=== PATIENT | male | born 1960 | race Caucasian/White ===

== ENCOUNTER 2025-01-26 07:38 | Inpatient (IN) | payer BC, SELFPAY ==
[2025-01-26] VITALS (17 sets, daily range): BP systolic 141–170; BP diastolic 79–110; PULSE 70–97; RESP 17–20; TEMP 36.5–36.9; O2SAT 91–97; BMI 38.4
--- NOTE | 2025-01-26 07:44 | EKG12_ITS ---
Test Reason : SOB Blood Pressure : */* mmHG Vent. Rate : 80 BPM Atrial Rate : 80 BPM P-R Int : 146 ms QRS Dur : 82 ms QT Int : 424 ms P-R-T Axes : 58 6 34 degrees QTcB Int : 489 ms Normal sinus rhythm Septal infarct , age undetermined Abnormal ECG Confirmed by SANDRA GARCIA, LEIGHA ([id number]), legal editor MAURICE SAUNDERS ([id number]) on 01/27/2025 1:24:50 PM Referred By: Confirmed By: LEIGHA FLORES MD
--- NOTE | 2025-01-26 08:00 | ED.VIS.DYS ---
HPI History of Present Illness Chief Complaint: Shortness of Breath Narrative Narrative: Chief complaint and HPI: Cough with known pneumonia. 64-year-old male with no significant past medical history presents for evaluation of cough with recent diagnosis of pneumonia. Patient states since he has had a productive cough and URI type symptoms. States that he was seen in urgent care and diagnosed with pneumonia. Prescribed antibiotics but does not remember which ones. States his cough has worsened overnight. Endorses some mild shortness of breath. Denies any fever, chills, chest pain, abdominal pain, nausea, vomiting. Denies history of tobacco abuse. Review of systems: See HPI Medications: As listed on the chart Allergies: As listed on the chart PFSH: Per chart Vital signs: As listed on the chart. Reviewed. Physical exam: Gen: A&O x3, NAD Head: Normocephalic, atraumatic Eyes: No sclera icterus, conjunctiva clear ENT: Moist mucous membranes Neck: Trachea midline, No JVD CV: RRR, no murmurs, no peripheral edema Resp: Lungs CTA BL, no w/r/c, 2 L nasal cannula GI: Abd soft, non-distended, non-tender, no r/r/g Musc: Full ROM, no deformity Skin: Warm, dry Neuro: Alert, oriented, grossly intact, sensation intact Psych: Cooperative, appropriate mood and affect [facility] Medical History unable to obtain Home Medications ?Medication ?Instructions ?Recorded ?Last Taken ?Type albuterol sulfate 90 mcg/actuation 2 puff inhalation Q4H PRN wheezing 01/26/25 01/25/25 History aerosol inhaler Allergy/AdvReac Type Severity Reaction Status Date / Time No Known Allergies Allergy Verified 01/26/25 07:43 Surgical History (Updated 01/26/25 @ 07:44 by Kelin Mart) S/P middle ear reconstruction Social History Smoking Status: Current every day smoker tobacco type: smokeless tobacco EXAM Physical Exam Const Vital Signs: 01/26/25 07:39 01/26/25 07:42 01/26/25 07:44 Temperature 98.4 F 98.4 F Temperature Source Oral Oral Pulse Rate 83 79 Respiratory Rate 20 H 20 H Respiratory Effort Respiratory Depth Respiratory Pattern Blood Pressure 168/87 H 168/87 H Blood Pressure Mean 114 114 Pulse Ox 96 97 Oxygen Delivery Method Nasal Cannula Nasal Cannula Nasal Cannula Oxygen Flow Rate (L/min) 2 2 01/26/25 07:46 01/26/25 08:11 01/26/25 08:11 Temperature Temperature Source Pulse Rate 79 Respiratory Rate 18 Respiratory Effort Normal Respiratory Depth Normal Respiratory Pattern Normal Normal Blood Pressure Blood Pressure Mean Pulse Ox 96 Oxygen Delivery Method Nasal Cannula Nasal Cannula Oxygen Flow Rate (L/min) 2 2 01/26/25 08:30 01/26/25 08:30 01/26/25 09:00 Temperature 98.4 F 98.4 F Temperature Source Oral Oral Pulse Rate 85 80 80 Respiratory Rate 20 H 20 H 20 H Respiratory Effort Respiratory Depth Respiratory Pattern Blood Pressure 156/110 H 156/110 H 159/82 H Blood Pressure Mean 125 125 107 Pulse Ox 97 97 97 Oxygen Delivery Method Nasal Cannula Nasal Cannula Nasal Cannula Oxygen Flow Rate (L/min) 2 2 2 01/26/25 10:00 01/26/25 10:00 Temperature 98.2 F Temperature Source Oral Pulse Rate 82 80 Respiratory Rate 18 20 H Respiratory Effort Respiratory Depth Respiratory Pattern Blood Pressure 170/98 H 170/90 H Blood Pressure Mean 122 116 Pulse Ox 97 97 Oxygen Delivery Method Nasal Cannula Nasal Cannula Oxygen Flow Rate (L/min) 2 2 MDM MDM MDM Narrative Medical decision making narrative: 64-year-old male with no significant past medical history presents for evaluation of cough with recent diagnosis of pneumonia. On presentation, patient is hypertensive, mildly tachypneic, and hypoxic at 69% on room air. Requiring 2 L nasal cannula. Patient usually does not wear oxygen. Differential diagnosis includes but is not limited to pneumonia, viral illness, PE, ACS, CHF. DuoNebs ordered with 500 cc NS bolus. Laboratory workup ordered with chest x-ray. On chart review, I was unable to find patient's x-ray that he had performed at an urgent care. On chart review, patient was prescribed Augmentin and azithromycin x 5 days on 01/17. Was also given a prednisone taper. CBC with leukocytosis of 14. No anemia. Platelets unremarkable. BMP unremarkable. Chest x-ray shows pneumonia, Rocephin and azithromycin ordered for suspected community-acquired pneumonia. Dimer elevated at 0.78. This is likely secondary to his pneumonia however cannot rule out a PE with his hypoxia. CTA ordered. COVID, flu, RSV negative. BNP unremarkable. Troponin unremarkable. CTA negative for PE. Patient has pneumonia. Small nodules up to 5.5 mm follow-up outpatient. Mild mediastinal lymphadenopathy, nonspecific. Mild splenomegaly. Patient will warrant admission for acute hypoxia secondary to pneumonia. Patient originally stating that he wants to leave AGAINST MEDICAL ADVICE however after long discussion he is willing to stay to be treated and admitted. Patient was discussed with hospitalist service who accepted admission. EKG: Interpreted by me/EM physician: EKG shows normal sinus rhythm without any ST elevation. Heart rate 80. Diagnostic: Interpreted by me/EM physician: Chest x-ray shows right-sided pneumonia. No effusion or pneumothorax. Impression: 1. Acute hypoxia 2. Pneumonia Lab Data Labs: Laboratory Results - last 24 hr 01/26/25 07:58 WBC 14.0 H RBC 4.53 L Hgb 14.0 Hct 40.8 MCV 90.1 MCH 30.9 MCHC 34.3 RDW Std Deviation 45.5 H RDW Coeff of Mana 13.8 Plt Count 288 MPV 9.1 Immature Gran % (Auto) 0.900 Neut % (Auto) 78.8 H Lymph % (Auto) 12.7 L [place] % (Auto) 6.4 Eos % (Auto) 0.7 Baso % (Auto) 0.5 Absolute Neuts (auto) 11.0 H Absolute Lymphs (auto) 1.77 Nucleated RBC % 0 D-Dimer Quant (PE/DVT) 0.78 H* Sodium 140 Potassium 3.4 Chloride 99 Carbon Dioxide 29.2 Anion Gap 12 BUN 14 Creatinine 0.81 Estim Creat Clear Calc 123.61 Est GFR (MDRD) Non-Af 100 BUN/Creatinine Ratio 17.6 Glucose 111 H Lactic Acid 1.4 Calcium 8.3 Troponin T High Sens 22 NT pro BNP II < 36 Radiography Diagnostic Testing: Clinical Impression(s) from Imaging Studies Chest X-Ray 01/26/25 08:40 IMPRESSION: 1. Findings in the RIGHT lung base are consistent with pneumonia, superimposed on chronic findings in the region which are similar to 11/12/2012. Follow-up to radiographic resolution recommended. 2. Additional description as above. Reading Location: [facility] Chest CTA 01/26/25 09:20 IMPRESSION: 1. No central or definite pulmonary embolism identified allowing for above limitations. 2. Findings are compatible with an infectious/inflammatory process such as mild pneumonia. Given scattered foci of lower lobe endobronchial debris/mucous plugging, consider mild aspiration. 3. Small nodules up to 5.5 mm average axial diameter, statistically benign and requiring no specific follow-up in a low risk patient. Otherwise, recommend follow-up CT chest in one year per the Fleischner society recommendations for pulmonary nodule follow-up, presuming no history of malignancy or known immunosuppression. 4. Mild mediastinal lymphadenopathy, nonspecific and potentially reactive in the absence of known malignancy. Correlate with medical history and follow-up as indicated. 5. Mild splenomegaly. 6. Additional description as above. Reading Location: [facility] Discharge Plan Triage Chief Complaint: Shortness of Breath ED Provider: Yao Cheng Dx/Rx/DC Orders Prescriptions: No Action albuterol sulfate 90 mcg/actuation HFA aerosol inhaler 2 puff inhalation Q4H PRN (Reason: wheezing) Primary Care Provider: Care Physician,No Primary Referrals: Ryne Subramanian MD [Non-Staff] - Print Language: Niuean
[2025-01-26] MEDS: Ipratropium/Albuterol Sulfate 3 ML AMPUL.NEB 9 ML INHALATION (08:09)
[2025-01-26] MEDS: 0.9% Normal Saline (500mL Bag) 500 ML 999 ML IV (08:14)
[2025-01-26 08:15] LABS: Absolute Lymphocyte Count 1.77 X10^3/uL (0.83-4.51); Basophil# 0.07 X10^3/uL; Basophil% 0.5 % (0-1); Eosinophils% 0.7 % (0-5); Hematocrit 40.8 % (40-54); Lymphocyte # 1.77 X10^3/ul (0.83-4.51); Lymphocyte % 12.7 % (19-41); Mean Corp Hgb Conc 34.3 g/dL (32-36); Mean Corpuscular Hgb 30.9 pg (27.0-32.0); Mean Corpuscular Volume 90.1 fL (80-94); Mean Platelet Vol. 9.1 fl (6.2-12.0); Monocyte# 0.89 X10^3/uL; Monocyte% 6.4 % (0-10); NRBC Flagged by Analyzer 0 % (0-5); Neutrophil # 11.02 X10^3/uL (2.7-7.7); Neutrophil % 78.8 % (47-70); Platelet Count 288 K/mm3 (150-450); RBC Distribution Width CV 13.8 % (11.6-14.6); RBC Distribution Width SD 45.5 fl (35.1-43.9); Red Blood Count 4.53 M/mm3 (4.6-6.2)
--- NOTE | 2025-01-26 08:40 | RAD_ITS ---
PROCEDURE: CHEST PA AND LATERAL (RADCXR), 01/26/2025 REASON FOR EXAM: SHORTNESS OF BREATH TECHNIQUE: PA and lateral views of the chest were obtained. COMPARISON: 11/12/2012 ; note that images only are available for review, the report is not available at the time of the dictation. FINDINGS: Heart: Similar top-normal heart size. Mediastinum: Similar contours, including widening of the RIGHT paratracheal stripe. Lungs/pleura: Similar ill-defined opacities in the RIGHT lung base and suspected architectural distortion with suspected pleural thickening versus chronic small pleural effusion. Superimposed vague opacities slightly more cranially are probably new from prior. No LEFT pleural effusion or visible pneumothorax. Bones: Old LEFT rib fractures are new from prior. Multilevel spondylosis. Findings suggestive of rotator cuff pathology on the LEFT. Lines and support devices: None. Other: None. RAD/Chest PA and Lateral IMPRESSION: 1. Findings in the RIGHT lung base are consistent with pneumonia, superimposed on chronic findings in the region which are similar to 11/12/2012. Follow-up to radiographic resolution recommended. 2. Additional description as above. Reading Location: [id number]
[2025-01-26 08:57] LABS: Lactic Acid 1.4 mmol/L (0.0-2.0)
[2025-01-26 09:02] LABS: Anion Gap 12 (5-15); BUN 14 mg/dL (4-19); BUN/Creat Ratio 17.6 RATIO (10-20); Calcium,Total 8.3 mg/dL (7.6-11.0); Carbon Dioxide 29.2 mmol/L (21.0-32.0); Chloride 99 mmol/L (98-108); Creatinine, Serum 0.81 mg/dL (0.70-1.20); EST Glomerular Filtration Rate 100 (>60); Estimated Creatinine Clearance 123.61 ml/min (50-250); Glucose 111 mg/dL (70-99); Potassium 3.4 mmol/L (3.3-5.1); Sodium Level 140 mmol/L (133-145)
[2025-01-26 09:05] LABS: Pro- Brain NATRIURETIC PEPTIDE < 36 pg/mL (<=900); Troponin T High Sensitivity 22 ng/L (<=22)
[2025-01-26 09:11] LABS: D-Dimer Quantitative (DVT/PE) 0.78 FEU/ug/m (0.27-0.49)
--- NOTE | 2025-01-26 09:20 | CT_ITS ---
PROCEDURE: CTA CHEST W/WO CONTRAST (CTCTACHWW), 01/26/2025 REASON FOR EXAM: PE, ELEVATED DIMER, SOB TECHNIQUE: CTA chest was performed with IV contrast. Multiplanar reformats and MIP reconstructions were generated. CONTRAST: Isovue 370 VOLUME: 100mL RADIATION DOSE SUMMARY: CTDlvol: 7.12+ 15.83 mGy DLP: 565.48 mGycm One or more dose reduction techniques were used (e.g., Automated exposure control, adjustment of the mA and/or kV according to patient size, use of iterative reconstruction technique). COMPARISON: No prior CT or CTA chest. FINDINGS: Sensitivity for peripheral pulmonary embolus limited by suboptimal opacification of the pulmonary arterial tree to 173 Hounsfield units, as compared with 202 Hounsfield units in the pulmonary veins. Sensitivity further limited by moderate motion artifact. Heart/pericardium: Unremarkable. Aorta: Focal fusiform ectasia of the distal descending aorta to 3.6 x 3.3 cm with mild irregular mural thrombus and/or soft atherosclerotic plaque along the medial margin. Pulmonary arteries: Normal in caliber. No central or definite pulmonary embolism is identified. Lymph nodes: Subcarinal node, 12 mm short axis.. Lungs/pleura: Elevated RIGHT hemidiaphragm. Mild bibasilar likely atelectasis/scarring. Scattered ill-defined vaguely tree-in-bud micronodular opacities throughout the RIGHT middle and lower lobes the RIGHT upper and LEFT lower lobes to a lesser degree. Discrete nodules up to 7 x 4 mm in the LEFT lower lobe (series 2, image 124). Airways: Scattered foci of mucous plugging/endobronchial debris most notable in the lower lobes.. Chest wall: Unremarkable. Upper abdomen: Mild splenomegaly, 13.5 cm. Musculoskeletal: Multilevel spondylosis. Old bilateral rib fractures. CT/CTA Chest W/WO Contrast IMPRESSION: 1. No central or definite pulmonary embolism identified allowing for above limi tations. 2. Findings are compatible with an infectious/inflammatory process such as mild pneumonia. Given scattered foci of lower lobe endobronchial debris/mucous plugging, consider mild aspiration. 3. Small nodules up to 5.5 mm average axial diameter, statistically benign and requiring no specific follow-up in a low risk patient. Otherwise, recommend follow-up CT chest in one year per the Fleischne r society recommendations for pulmonary nodule follow-up, presuming no history of malignancy or known immunosuppression. 4. Mild mediastinal lymphadenopathy, nonspecific and potentially reactive in th e absence of known malignancy. Correlate with medical history and follow-up as indicated. 5. Mild splenomegaly. 6. Additional description as above. Reading Location: [id number]
[2025-01-26] MEDS: Ceftriaxone 2 GM in 0.9% Normal Saline (50mL MB+) 50 ML IV (09:50)
[2025-01-26] MEDS: Azithromycin 500 MG in 0.9% Normal Saline (250mL Bag) 250 ML 255 MG IV (10:43)
--- NOTE | 2025-01-26 10:52 | PCM.HP.STD ---
HPI - General General Date of Admission: 01/26/25 Date of Service: 01/26/25 Chief Complaint: shortness of breath HPI Narrative JUAN FRANCISCO STRANGE, is a 64 M with a PMH as outlined who was admitted via the ED on 01/26/2025 with a complaint of shortness of breath. Symptoms have been going on since he had seen his PCP and was prescribed Augmentin and doxycycline. He took these medications but his shortness of breath and cough persisted. Cough was productive. His cough had worsening shortness of breath and not improved. He denied any fever or chills, chest pain, nausea vomiting or any other symptoms. Review of systems otherwise negative. He decided to come into the ED because symptoms were not improving. Vitals in [facility] ED were BP of 170/90, VA of 80, RR Of 20 and temp of 98.2F. He was saturating at 97% on 2L of oxygen by nasal canula. CBC showed Hb of 14, wbc of 14, platelets of 288. D dimer was 0.78. Chemistry showed sodium of 140, potassium of 3.4, bicarb of 29.2 and Cr of 0.81. Pro BNP was <36 and initial troponin was not elevated. Lactic acid was 1.4. Chest x-ray showed findings in the right lung base consistent with pneumonia. CTA of the chest was negative for PE and showed findings compatible with an infectious versus inflammatory process given scattered foci of lower lobe endobronchial debris and mucous plugging with consideration for aspiration. He is being admitted to be managed for hypoxia due to community acquired pneumonia with failed outpatient therapy. [facility] Medical History unable to obtain Home Medications ?Medication ?Instructions ?Recorded ?Last Taken ?Type albuterol sulfate 90 mcg/actuation 2 puff inhalation Q4H PRN wheezing 01/26/25 01/25/25 History aerosol inhaler Allergy/AdvReac Type Severity Reaction Status Date / Time No Known Allergies Allergy Verified 01/26/25 07:43 Family History (Updated 01/26/25 @ 12:14 by Alethea Holliday) Father CHF (congestive heart failure) COPD (chronic obstructive pulmonary disease) Mother Parkinson disease CVA (cerebral vascular accident) Sister COPD (chronic obstructive pulmonary disease) Surgical History (Updated 01/26/25 @ 07:44 by Kelin Mart) S/P middle ear reconstruction Social History Smoking Status: Current every day smoker tobacco type: smokeless tobacco ROS Constitutional Constitutional: Reports fatigue, malaise and weakness; Denies anorexia, change in weight, chills or fever(s) Eyes Eyes: Denies change in vision ENT HEENT: Denies dysphagia, headache(s) or sore throat Cardiovascular Cardiovascular: Reports dyspnea on exertion; Denies chest pain, edema, lightheadedness, orthopnea, palpitations, paroxysmal nocturnal dyspnea, rapid heart rate or syncope Respiratory/Chest Respiratory/Chest: Reports cough, dyspnea, productive cough, shortness of breath at rest and shortness of breath with exertion; Denies excessive phlegm production, hemoptysis or wheezing Gastrointestinal Gastrointestinal: Denies abdominal pain, constipation, diarrhea, dyspepsia, nausea or vomiting Genitourinary Genitourinary: Denies burning urination or dysuria Neurologic Neurologic: Denies confusion, dizziness, focal weakness, headache(s), numbness or seizures Psychiatric Psychiatric: Denies anxiety or depression Endocrine Endocrinology: Denies cold intolerance Hematologic/Lymphatic Hematologic/Lymphatic: Denies anemia Vital Signs Vital Signs Vital Signs: 01/26/25 07:39 01/26/25 07:42 01/26/25 07:44 Temperature 98.4 F 98.4 F Temperature Source Oral Oral Pulse Rate 83 79 Respiratory Rate 20 H 20 H Respiratory Effort Respiratory Depth Respiratory Pattern Blood Pressure 168/87 H 168/87 H Blood Pressure Mean 114 114 Pulse Ox 96 97 Oxygen Delivery Method Nasal Cannula Nasal Cannula Nasal Cannula Oxygen Flow Rate (L/min) 2 2 01/26/25 07:46 01/26/25 08:11 01/26/25 08:11 Temperature Temperature Source Pulse Rate 79 Respiratory Rate 18 Respiratory Effort Normal Respiratory Depth Normal Respiratory Pattern Normal Normal Blood Pressure Blood Pressure Mean Pulse Ox 96 Oxygen Delivery Method Nasal Cannula Nasal Cannula Oxygen Flow Rate (L/min) 2 2 01/26/25 08:30 01/26/25 08:30 01/26/25 09:00 Temperature 98.4 F 98.4 F Temperature Source Oral Oral Pulse Rate 85 80 80 Respiratory Rate 20 H 20 H 20 H Respiratory Effort Respiratory Depth Respiratory Pattern Blood Pressure 156/110 H 156/110 H 159/82 H Blood Pressure Mean 125 125 107 Pulse Ox 97 97 97 Oxygen Delivery Method Nasal Cannula Nasal Cannula Nasal Cannula Oxygen Flow Rate (L/min) 2 2 2 01/26/25 10:00 01/26/25 10:00 Temperature 98.2 F Temperature Source Oral Pulse Rate 82 80 Respiratory Rate 18 20 H Respiratory Effort Respiratory Depth Respiratory Pattern Blood Pressure 170/98 H 170/90 H Blood Pressure Mean 122 116 Pulse Ox 97 97 Oxygen Delivery Method Nasal Cannula Nasal Cannula Oxygen Flow Rate (L/min) 2 2 Weight Weight: 268 lb Body Mass Index (BMI) 38.4 Physical Exam Const alert, oriented x3 and no apparent distress Constitutional Narrative: class III obesity General Appearance: cooperative HEENT normocephalic, head/scalp atraumatic, hearing grossly normal bilaterally and moist oral mucous membranes Mouth: oral and palatal mucosa normal Eyes PERRL, EOMs intact bilaterally and conjunctivae normal Resp Resp Narrative: mildly diminished breath sounds bibasally, no wheezes or crackles. On room air. Cardio regular rate, regular rhythm, S1 normal heart sound, S2 normal heart sound and no murmurs GI normal to inspection, nondistended, normoactive bowel sounds, soft to palpation, non-tender and non-distended Extremity normal to inspection, full ROM and no clubbing, cyanosis or edema Neuro oriented x3, CN's II-XII intact bilaterally, moves all extremities and no focal motor deficits Motor Exam: strength 5/5 throughout Psych affect normal Results Lab / Micro Data 01/26/25 07:58 01/26/25 07:58 Labs: Laboratory Results - last 24 hr 01/26/25 07:58: WBC 14.0 H, RBC 4.53 L, Hgb 14.0, Hct 40.8, MCV 90.1, MCH 30.9, MCHC 34.3, RDW Std Deviation 45.5 H, RDW Coeff of Mana 13.8, Plt Count 288, MPV 9.1, Immature Gran % (Auto) 0.900, Neut % (Auto) 78.8 H, Lymph % (Auto) 12.7 L, Humphre[place] % (Auto) 6.4, Eos % (Auto) 0.7, Baso % (Auto) 0.5, Absolute Neuts (auto) 11.0 H, Absolute Lymphs (auto) 1.77, Nucleated RBC % 0, D-Dimer Quant (PE/DVT) 0.78 H*, Sodium 140, Potassium 3.4, Chloride 99, Carbon Dioxide 29.2, Anion Gap 12, BUN 14, Creatinine 0.81, Estim Creat Clear Calc 123.61, Est GFR (MDRD) Non-Af 100, BUN/Creatinine Ratio 17.6, Glucose 111 H, Lactic Acid 1.4, Calcium 8.3, Troponin T High Sens 22, NT pro BNP II < 36 Micro: Microbiology 01/26/25 08:26 Mucosa - Nose SARS-CoV-2, Influenza & RSV (PCR) - Final Imaging Radiology Impression Chest X-Ray 01/26/25 08:40 IMPRESSION: 1. Findings in the RIGHT lung base are consistent with pneumonia, superimposed on chronic findings in the region which are similar to 11/12/2012. Follow-up to radiographic resolution recommended. 2. Additional description as above. Reading Location: [facility] Chest CTA 01/26/25 09:20 IMPRESSION: 1. No central or definite pulmonary embolism identified allowing for above limitations. 2. Findings are compatible with an infectious/inflammatory process such as mild pneumonia. Given scattered foci of lower lobe endobronchial debris/mucous plugging, consider mild aspiration. 3. Small nodules up to 5.5 mm average axial diameter, statistically benign and requiring no specific follow-up in a low risk patient. Otherwise, recommend follow-up CT chest in one year per the Fleischner society recommendations for pulmonary nodule follow-up, presuming no history of malignancy or known immunosuppression. 4. Mild mediastinal lymphadenopathy, nonspecific and potentially reactive in the absence of known malignancy. Correlate with medical history and follow-up as indicated. 5. Mild splenomegaly. 6. Additional description as above. Reading Location: [facility] Assessment & Plan Assessment/Plan (1) Pneumonia: PLAN: Plan #Hypoxia due to community acquired pneumonia Failed outpatient therapy Comes in with persistent shortness of breath and productive cough. Chest x-ray shows findings in the right lung base consistent with pneumonia superimposed on chronic endings in the region. CTA of the chest done on account of elevated D-dimer was negative for PE and showed findings compatible with an infectious versus inflammatory process such as mild pneumonia given scattered foci of lower lobe endobronchial debris and mucous plugging to consider mild aspiration. There are also small nodules up to 5.5 mm in diameter and mild mediastinal lymphadenopathy. Admit to MedSurg. Patient currently on 2 L of oxygen. Start patient on IV ceftriaxone and azithromycin. Get urine for strep and Legionella and sputum cultures. Breathing treatments with bronchodilators. Titrate oxygen to maintain saturation above 90%. #Elevated blood pressure: Blood pressure is 170/90. Patient noted a known hypertensive. Started on IV hydralazine as needed. If blood pressure remains elevated will place on p.o. blood pressure medications. #History of chronic alcohol use disorder Patient states he drinks about 14 beers a week at the least. Not having any active withdrawal. Will monitor closely for signs of withdrawal and placed on CIWA score as needed. DVT prophylaxis: Lovenox CODE STATUS: DNR CCA no intubation Patient counseled extensively about different types of CODE STATUS including full code, DNR CCA and DNR CCA. Patient elects to be DNRCCA and says he has papers signed to that effect already. Total [id number] time 16 minutes. Charges/Coding Visit Charges Inpatient E&M: 27303 Init Hosp L3 Procedures Hospitalists Procedures: 99049 Advncd Care Plan 30 Min
[2025-01-26] MEDS: 0.9% Normal Saline (1000mL) 1,000 ML 125 ML IV ×2 (12:51→21:34)
[2025-01-26] MEDS: Ipratropium/Albuterol Sulfate 3 ML AMPUL.NEB INHALATION ×2 (13:16→19:08)
[2025-01-26 17:51] LABS: Troponin T High Sens 2 HR 20 ng/L (<=22)
[2025-01-27] VITALS (12 sets, daily range): BP systolic 129–144; BP diastolic 72–92; PULSE 68–86; RESP 16–18; TEMP 36.7–37.3; O2SAT 91–95
[2025-01-27 05:54] LABS: Absolute Lymphocyte Count 1.84 X10^3/uL (0.83-4.51); Absolute Neutrophil Count 8.1 X10^3/uL (2.0-7.7); Basophil# 0.04 X10^3/uL; Basophil% 0.4 % (0-1); Eosinophil# 0.19 X10^3/uL; Eosinophils% 1.8 % (0-5); Hematocrit 40.2 % (40-54); Hemoglobin 13.6 g/dL (13.0-16.5); Lymphocyte # 1.84 X10^3/ul (0.83-4.51); Mean Corp Hgb Conc 33.8 g/dL (32-36); Mean Corpuscular Hgb 30.8 pg (27.0-32.0); Monocyte# 0.56 X10^3/uL; Monocyte% 5.2 % (0-10); NRBC Flagged by Analyzer 0 % (0-5); Neutrophil # 8.12 X10^3/uL (2.7-7.7); Platelet Count 277 K/mm3 (150-450); RBC Distribution Width CV 13.9 % (11.6-14.6); RBC Distribution Width SD 46.5 fl (35.1-43.9); Red Blood Count 4.42 M/mm3 (4.6-6.2); White Blood Count 10.8 K/mm3 (4.4-11.0)
[2025-01-27 06:19] LABS: Anion Gap 10 (5-15); BUN 10 mg/dL (4-19); BUN/Creat Ratio 14.1 RATIO (10-20); Calcium,Total 7.8 mg/dL (7.6-11.0); Carbon Dioxide 25.4 mmol/L (21.0-32.0); Chloride 103 mmol/L (98-108); Creatinine, Serum 0.72 mg/dL (0.70-1.20); EST Glomerular Filtration Rate 103 (>60); Estimated Creatinine Clearance 139.07 ml/min (50-250); Glucose 108 mg/dL (70-99); Potassium 3.6 mmol/L (3.3-5.1); Sodium Level 139 mmol/L (133-145)
[2025-01-27] MEDS: 0.9% Saline Lock 10 ML Syringe IV ×2 (06:40→21:09)
[2025-01-27] MEDS: Ipratropium/Albuterol Sulfate 3 ML AMPUL.NEB INHALATION ×3 (07:06→19:28)
[2025-01-27] MEDS: Ceftriaxone 1 GM/50 ML BAG IV (09:12)
[2025-01-27] MEDS: Enoxaparin 40 MG/0.4 ML Syringe SC (10:24)
[2025-01-27] MEDS: Azithromycin 500 MG in 0.9% Normal Saline (250mL Bag) 250 ML 255 MG IV (10:24)
--- NOTE | 2025-01-27 10:31 | PN_ITS ---
Subjective Subjective Patient seen and examined. He had no active complaints. He feels better today. He is on room air. Review of systems is otherwise negative. Objective Data Objective Data Vital Signs: Vital Signs Temp Pulse Resp BP Pulse Ox O2 Del Method O2 Flow Rate 98.1 F 78 18 143/92 H 91 Room Air 2 01/27/25 02:10 01/27/25 07:07 01/27/25 07:07 01/27/25 02:10 01/27/25 07:07 01/27/25 08:00 01/26/25 11:00 Oxygen Flow Rate (L/min) 2 Oxygen Delivery Method Room Air Weight: 268 lb 0.008 oz Body Mass Index (BMI) 38.4 Intake & Output: Intake and Output for Last 24 Hours 01/25/25 01/26/25 01/27/25 23:59 23:59 23:59 Intake Total 2405 / 2405 1500 / 1500 Balance 2405 / 2405 1500 / 1500 Lab / Micro Data 01/27/25 05:18 01/27/25 05:18 Labs: Laboratory Results - last 24 hr 01/26/25 16:50: Troponin T Hi Sens 2 Hr 20 01/27/25 05:18: WBC 10.8, RBC 4.42 L, Hgb 13.6, Hct 40.2, MCV 91.0, MCH 30.8, MCHC 33.8, RDW Std Deviation 46.5 H, RDW Coeff of Mana 13.9, Plt Count 277, MPV 9.0, Immature Gran % (Auto) 0.600, Neut % (Auto) 75.0 H, Lymph % (Auto) 17.0 L, [place] % (Auto) 5.2, Eos % (Auto) 1.8, Baso % (Auto) 0.4, Absolute Neuts (auto) 8.1 H, Absolute Lymphs (auto) 1.84, Nucleated RBC % 0, Sodium 139, Potassium 3.6, Chloride 103, Carbon Dioxide 25.4, Anion Gap 10, BUN 10, Creatinine 0.72, Estim Creat Clear Calc 139.07, Est GFR (MDRD) Non-Af 103, BUN/Creatinine Ratio 14.1, Glucose 108 H, Calcium 7.8 Micro: Microbiology 01/26/25 12:49 Sputum, Expectorated/Coughed Gram Stain - Final 01/26/25 Unknown Urine, Random Legionella Antigen - Final 01/26/25 Unknown Urine, Random Streptococcus pneumoniae Antigen (M - Final Streptococcus pneumonia Ag 01/26/25 08:26 Mucosa - Nose SARS-CoV-2, Influenza & RSV (PCR) - Final Physical Exam Const alert, oriented x3 and no apparent distress Constitutional Narrative: class III obesity General Appearance: cooperative and well developed HEENT normocephalic, head/scalp atraumatic, hearing grossly normal bilaterally and moist oral mucous membranes Eyes PERRL, EOMs intact bilaterally and conjunctivae normal Neck no lymphadenopathy and supple Lymph Lymphatic: no lymphadenopathy noted and no lymphedema noted Resp Resp Narrative: mildly diminished breath sounds bibasally, no wheezes or crackles. Remains on room air. Cardio regular rate, regular rhythm, S1 normal heart sound, S2 normal heart sound and no murmurs GI normal to inspection, nondistended, normoactive bowel sounds, soft to palpation, non-tender and non-distended Extremity normal to inspection, full ROM, normal capillary refill and no clubbing, cyanosis or edema General Extremity: no tenderness to palpation of joints or extremities Skin General Skin Exam: no breakdown Neuro oriented x3, CN's II-XII intact bilaterally, moves all extremities and no focal motor deficits Motor Exam: strength 5/5 throughout Psych thought process normal, cooperative and affect normal Appearance: appropriate Assessment & Plan Assessment/Plan (1) Pneumonia: PLAN: Plan #Hypoxia due to community acquired pneumonia * Failed outpatient therapy * Chest x-ray shows findings in the right lung base consistent with pneumonia superimposed on chronic endings in the region. * CTA of the chest done on account of elevated D-dimer was negative for PE and showed findings compatible with an infectious versus inflammatory process such as mild pneumonia given scattered foci of lower lobe endobronchial debris and mucous plugging to consider mild aspiration. There are also small nodules up to 5.5 mm in diameter and mild mediastinal lymphadenopathy. * on IV ceftriaxone and azithromycin * urine for Strep was positive. * now down to room air. * sputum cultures pending * titrate oxygen to maintain sats >90% * * #Elevated blood pressure: * BP is down to 143/92 * will start on PO amlodipine 10mg daily. * IV hydralazine prn * #History of chronic alcohol use disorder * Patient states he drinks about 14 beers a week at the least. Not having any active withdrawal. * Will monitor closely for signs of withdrawal and placed on CIWA score as needed. * DVT prophylaxis: Lovenox CODE STATUS: DNR CCA no intubation * Charges/Coding Visit Charges Inpatient E&M: 10325 Subs Hosp L2
--- NOTE | 2025-01-27 10:35 | CASEMGMT ---
ZACH BYRNE Assessment: Face to Face with pt for initial transition planning/care coordination assessment. RN CATY introduced self and role at [facility], pt voices understanding and consents to assessment. Pt is A&O x4 and answers all questions appropriately at this time. Pt sitting up in chair on RA in no distress. Care providers, pharmacy, and demographics verified/updated. Admitting Dx: hypoxia, pna Strata Score: 1 PCP:None, provided pt with a local healthcare directory list reluctantly. Pt denies need for RN CATY to assist in setting up an appt. Pt states he avoids doctors. Educated on importance of PCP. Specialists:denies Preferred Pharmacy: [facility] Insurance: [employer] Prescription Benefit: yes LNOK: Maddy Granda, dtr Living Arrangements: Pt lives with dtr, son in law and granddtr in a mobile home with 3 steps to enter. Pt reports that he is I in ADL/IADLs and denies concerns at home. Pt still works. Transportation: Pt drives self and denies concerns with transportation. DME:Denies HHC/SNF: Denies hx of Pt states no concerns with going home at time of dc. Pt reports that he does not smoke, drinks a few beers nightly and denies any street or illegal drug use. Pt states no further concerns/needs. CM to follow. Advised pt to ask CM if any further questions/concerns/needs arise, voices understanding. Pt Goal: Home Plan: Home Viviana SERRANO CM
[2025-01-27] MEDS: amLODIPine 10 MG Tablet PO (11:50)
--- NOTE | 2025-01-27 21:27 | NURSING ---
pt refusing to wear the purple band with his code status. pt verified his code status but continues to refuse to put on the purple band.
[2025-01-28] MEDS: Ipratropium/Albuterol Sulfate 3 ML AMPUL.NEB INHALATION ×2 (01:28→07:09)
[2025-01-28 01:29] VITALS: PULSE 79; RESP 18
[2025-01-28 02:50] VITALS: BP 131/72; PULSE 72; RESP 14; TEMP 36.8; O2SAT 92
[2025-01-28 03:19] VITALS: PULSE 65
[2025-01-28 06:12] LABS: Absolute Lymphocyte Count 1.83 X10^3/uL (0.83-4.51); Absolute Neutrophil Count 7.7 X10^3/uL (2.0-7.7); Basophil# 0.05 X10^3/uL; Basophil% 0.5 % (0-1); Eosinophil# 0.24 X10^3/uL; Eosinophils% 2.3 % (0-5); Hematocrit 39.8 % (40-54); Hemoglobin 13.5 g/dL (13.0-16.5); Lymphocyte # 1.83 X10^3/ul (0.83-4.51); Lymphocyte % 17.3 % (19-41); Mean Corp Hgb Conc 33.9 g/dL (32-36); Mean Corpuscular Hgb 30.5 pg (27.0-32.0); Mean Platelet Vol. 9.4 fl (6.2-12.0); Monocyte% 6.6 % (0-10); NRBC Flagged by Analyzer 0 % (0-5); Neutrophil # 7.71 X10^3/uL (2.7-7.7); Neutrophil % 72.6 % (47-70); POSITIVE COUNT YES; RBC Distribution Width CV 13.7 % (11.6-14.6); Red Blood Count 4.42 M/mm3 (4.6-6.2); White Blood Count 10.6 K/mm3 (4.4-11.0)
[2025-01-28 06:20] LABS: Differential Indicated SCAN CRITERIA MET
[2025-01-28 06:50] LABS: Anion Gap 13 (5-15); BUN 9 mg/dL (4-19); BUN/Creat Ratio 10.6 RATIO (10-20); Calcium,Total 8.1 mg/dL (7.6-11.0); Carbon Dioxide 23.2 mmol/L (21.0-32.0); Chloride 100 mmol/L (98-108); Creatinine, Serum 0.81 mg/dL (0.70-1.20); EST Glomerular Filtration Rate 100 (>60); Estimated Creatinine Clearance 123.61 ml/min (50-250); Glucose 111 mg/dL (70-99); Potassium 3.9 mmol/L (3.3-5.1); Sodium Level 137 mmol/L (133-145)
[2025-01-28 07:13] LABS: Differential Comment SCANNED; Platelet Estimate ADEQUATE (ADEQ)
[2025-01-28 07:27] VITALS: PULSE 72; RESP 18; O2SAT 93
--- NOTE | 2025-01-28 07:49 | DCINST_ITS ---
Discharge Instructions Diet Discharge Diet: No restrictions DC O2, CPAP, BIPAP needs Home O2 Discharge instructions: No Dressing / Incision Discharge Activity: Return to Normal Activity Dressing / Incision Call your doctor if you observe: Fever of 101 or Higher, Shortness of breath, Dizziness, Fainting spells, Swelling in the ankles, Chest pain and Increased palpitations (irregular heartbeat) Follow Up Care Test Results: Test results from this visit will be discussed in further detail at your follow- up appointment, if applicable. Discharge Plan Admission Admit Date/Time: 01/26/25 11:09 Attending Provider: Brien Dotson Primary Care Provider: Care Physician,No Primary Consulting Providers: Patt Gutierrez Discharge Orders/Prescriptions Prescriptions: New amlodipine 10 mg Tablet 10 mg PO DAILY 30 Days Qty: 30 0RF cefdinir 300 mg capsule 300 mg PO BID 6 Days Qty: 12 0RF azithromycin 500 mg tablet 500 mg PO DAILY 3 Days Qty: 3 0RF Continued albuterol sulfate 90 mcg/actuation HFA aerosol inhaler 2 puff inhalation Q4H PRN (Reason: wheezing) Referrals / Follow Up: Ryne Subramanian MD [Non-Staff] - Care Physician,No Primary [Primary Care Provider] - Disposition Disposition (needs filled in before D/C Order can be placed): Home, Self Care
[2025-01-28 07:54] VITALS: PULSE 64
[2025-01-28 08:28] VITALS: BP 139/75; PULSE 70; RESP 18; TEMP 37.2; O2SAT 91
[2025-01-28] MEDS: Ceftriaxone 1 GM/50 ML BAG IV (09:07)
[2025-01-28] MEDS: 0.9% Saline Lock 10 ML Syringe IV (09:08)
[2025-01-28] MEDS: 0.9% Normal Saline (100mL Bag) 100 ML IV (09:10)
[2025-01-28] MEDS: Azithromycin 500 MG in 0.9% Normal Saline (250mL Bag) 250 ML 255 MG IV (09:54)
--- NOTE | 2025-01-28 10:11 | PHA.DC_ITS ---
Pharmacy [facility] Service has performed discharge medication reconciliation and counseling for this patient. The patient's discharge medication list was reviewed for discrepancies and discrepancies were resolved. The patient was counseled on the following discharge medications and changes in medications for homegoing were reviewed. The Reason for Use, instructions for use, and potential side effects were reviewed for all new medications. The patient's questions regarding all of their medications were answered. 1. Amlodipine 10 mg PO daily 2. Cefdinir 300 mg PO BID x 6 days 3. Azithromycin 500 mg PO daily x 3 days The patient was able to verbally demonstrate an understanding of their discharge medications. Medications at Discharge Home Medications albuterol sulfate 90 mcg/actuation aerosol inhaler 2 puff inhalation Q4H PRN wheezing 30 days #1 g 01/28/25 amlodipine 10 mg tablet 10 mg PO DAILY 30 days #30 tabs 01/28/25 azithromycin 500 mg tablet 500 mg PO DAILY 3 days #3 tabs 01/28/25 cefdinir 300 mg capsule 300 mg PO BID 6 days #12 caps 01/28/25
[2025-01-28] MEDS: amLODIPine 10 MG Tablet PO (10:53)
[2025-01-28] MEDS: Enoxaparin 40 MG/0.4 ML Syringe SC (10:54)
--- NOTE | 2025-01-28 16:27 | DS.PCM_ITS ---
Providers Date of Admission: 01/26/25 Primary Care Physician: No Primary Care Phys Reason For Visit: HYPOXIA, PNEUMONIA Diagnosis Discharge Diagnosis (1) Pneumonia: Status: Acute Code(s): J18.9 - Pneumonia, unspecified organism Medications at Discharge Home Medications albuterol sulfate 90 mcg/actuation aerosol inhaler 2 puff inhalation Q4H PRN wheezing 30 days #1 g 01/28/25 amlodipine 10 mg tablet 10 mg PO DAILY 30 days #30 tabs 01/28/25 azithromycin 500 mg tablet 500 mg PO DAILY 3 days #3 tabs 01/28/25 cefdinir 300 mg capsule 300 mg PO BID 6 days #12 caps 01/28/25 Hospital Course Operations None Procedures None Summary of Care Provided Minutes Spent on Discharge: 36 Hospital Course: Per HPI: JUAN FRANCISCO STRANGE, is a 64 M with a PMH as outlined who was admitted via the ED on 01/26/2025 with a complaint of shortness of breath. Symptoms have been going on since [facility] he had seen his PCP and was prescribed Augmentin and doxycycline. He took these medications but his shortness of breath and cough persisted. Cough was productive. His cough had worsening shortness of breath and not improved. He denied any fever or chills, chest pain, nausea vomiting or any other symptoms. Review of systems otherwise negative. He decided to come into the ED because symptoms were not improving. Vitals in [facility] ED were BP of 170/90, SD of 80, RR Of 20 and temp of 98.2F. He was saturating at 97% on 2L of oxygen by nasal canula. CBC showed Hb of 14, wbc of 14, platelets of 288. D dimer was 0.78. Chemistry showed sodium of 140, potassium of 3.4, bicarb of 29.2 and Cr of 0.81. Pro BNP was <36 and initial troponin was not elevated. Lactic acid was 1.4. Chest x-ray showed findings in the right lung base consistent with pneumonia. CTA of the chest was negative for PE and showed findings compatible with an infectious versus inflammatory process given scattered foci of lower lobe endobronchial debris and mucous plugging with consideration for aspiration. He is being admitted to be managed for hypoxia due to community acquired pneumonia with failed outpatient therapy. Hospital Course: 1. Acute hypoxic respiratory insufficiency due to community-acquired pneumonia with failed outpatient therapy?62-year-old male presented to the hospital with pneumonia he was prescribed Augmentin and doxycycline on outpatient side but is continued to have shortness of breath and was requiring some oxygen initially on admission. His oxygen requirement resolved prior to discharge. His urine strep antigen was positive and his sputum sample is showing possible strep pneumonia organism growing. Will complete a few more days of azithromycin and cefdinir on discharge and he also requested for a refill on his albuterol inhaler. I discussed with him the possibly discharge today he expressed understanding the risks and benefits of going home and he would like to go home today. I recommend he follow-up with his PCP in the next 3 to 5 days. 2. Essential hypertension, asthma are chronic medical conditions which complicate his care. His home medications were continued where appropriate Physical Exam Narrative General: Alert, Oriented x3, Cooperative, No apparent distress HEENT: Atraumatic, PERRLA, EOMI, Normocephalic Oral: Moist Mucosa Neck: Supple, No JVD Lungs: Diminished, Normal air movement, No rhonchi, No wheeze, No rales Cardiovascular: Regular rate, Regular Rhythm, Normal S1, Normal S2, No murmurs Abdomen: Soft, Non Tender, Non-Distended, No Hepato-splenomegaly Extremities: No edema, Capillary Refill Less than 3 Seconds Skin: No rashes, No breakdown Musculoskeletal: No Tenderness to Palpation of Joints or Extremities Neurological: No focal neurological deficits, Motor Exam 5/5 strength throughout, Sensory exam intact to light touch and pain Psych/Mental Status: Normal Affect, Appropriate Weight / BMI Weight Weight: 268 lb 0.008 oz Body Mass Index (BMI) 38.4 ABG / Lab / Microbiology Data 01/28/25 05:42 01/28/25 05:42 Laboratory: Laboratory Results - last 24 hr 01/28/25 05:42: WBC 10.6, RBC 4.42 L, Hgb 13.5, Hct 39.8 L, MCV 90.0, MCH 30.5, MCHC 33.9, RDW Std Deviation 45.0 H, RDW Coeff of Mana 13.7, Plt Count , MPV 9.4, Immature Gran % (Auto) 0.700, Neut % (Auto) 72.6 H, Lymph % (Auto) 17.3 L, [place] % (Auto) 6.6, Eos % (Auto) 2.3, Baso % (Auto) 0.5, Absolute Neuts (auto) 7.7, Absolute Lymphs (auto) 1.83, Nucleated RBC % 0, Differential Comment SCANNED, Platelet Estimate ADEQUATE, Sodium 137, Potassium 3.9, Chloride 100, Carbon Dioxide 23.2, Anion Gap 13, BUN 9, Creatinine 0.81, Estim Creat Clear Calc 123.61, Est GFR (MDRD) Non-Af 100, BUN/Creatinine Ratio 10.6, Glucose 111 H, Calcium 8.1 Microbiology: Microbiology 01/26/25 12:49 Sputum, Expectorated/Coughed Gram Stain - Final 01/26/25 12:49 Sputum, Expectorated/Coughed Respiratory Culture - Preliminary 01/26/25 Unknown Urine, Random Legionella Antigen - Final 01/26/25 Unknown Urine, Random Streptococcus pneumoniae Antigen (M - Final Streptococcus pneumonia Ag 01/26/25 08:26 Mucosa - Nose SARS-CoV-2, Influenza & RSV (PCR) - Final D/C Instructions Discharge Diet: No restrictions Call your doctor if you observe: Fever of 101 or Higher, Shortness of breath, Dizziness, Fainting spells, Swelling in the ankles, Chest pain and Increased palpitations (irregular heartbeat) DC O2, CPAP, BIPAP Needs Home O2 Discharge instructions: No Meaningful Use Info Meaningful Use Meaningful Use Diagnoses (Choose all that apply): None applicable Ischemic Stroke Statin Dosing Therapy Reference: STATIN DOSE THERAPY REFERENCE: * Patients > 75 years receive moderate or high dose statin therapy. * Patients 75 years or YOUNGER should receive HIGH intensity statin dose unless contraindicated. You will be required to document reason for non-treatment if statin daily dose does not meet guidelines. HIGH DOSE STATIN THERAPY DAILY Atorvastatin > than or = to 40 mg Rosuvastatin > than or = to 20 mg Amlodipine + Atorvastatin > than or = to 2.5/40 mg Ezetimibe + Simvastatin 10/80 mg Simvastatin 80mg Discharge Plan Admission Admit Date/Time: 01/26/25 11:09 Attending Provider: Brien Dotson Primary Care Provider: Care Physician,No Primary Consulting Providers: Patt Gutierrez Discharge Orders/Prescriptions Prescriptions: New amlodipine 10 mg Tablet 10 mg PO DAILY 30 Days Qty: 30 0RF cefdinir 300 mg capsule 300 mg PO BID 6 Days Qty: 12 0RF azithromycin 500 mg tablet 500 mg PO DAILY 3 Days Qty: 3 0RF Continued albuterol sulfate 90 mcg/actuation HFA aerosol inhaler 2 puff inhalation Q4H PRN (Reason: wheezing) 30 Days Qty: 1 0RF Referrals / Follow Up: Ryne Subramanian MD [Non-Staff] - Care Physician,No Primary [Primary Care Provider] - Disposition Disposition (needs filled in before D/C Order can be placed): Home, Self Care Charges/Coding Visit Charges Inpatient E&M: 95849 Disch Hosp >30min
== END 2025-01-28 11:38 | disposition home or self-care (01) | DRG 195 ==
LOC: ED 08:38 → MS3 11:23
PROVIDERS: Admitting Provider Student in an Organized Health Care Education/Training Program; Emergency Provider Surgery; Visit Provider Family Medicine
DX: J18.9 Pneumonia, unspecified organism (principal); I10 Essential (primary) hypertension; Z66 Do not resuscitate; J13 Pneumonia due to Streptococcus pneumoniae; R09.02 Hypoxemia; R06.89 Other abnormalities of breathing
CPT/HCPCS: 36415; 71046; 71275; 80048; 83605; 83880; 84484; 85025; 85379; 87070; 87077; 87205; 87449; 87631; 93005; 94640; 94668; 97802; 99285; 99406; Q9967; A4216; J0696

== ENCOUNTER 2025-05-22 22:00 | Emergency (ER) | payer BC, SELFPAY ==
[2025-05-22] VITALS (7 sets, daily range): BP systolic 142–197; BP diastolic 87–105; PULSE 94–109; RESP 18–26; TEMP 37.4; O2SAT 92–97; BMI 39.0
--- NOTE | 2025-05-22 22:32 | PCA ---
DAUGHTER WILY VEGA (NEXT OF KIN) PHONE NUMBER IS [phone]. # LISTED IN CHART IS NOT UP TO DATE.
--- NOTE | 2025-05-22 22:52 | RAD_ITS ---
PROCEDURE: CHEST PA AND LATERAL 05/22/2025 REASON FOR EXAM: COUGH TECHNIQUE: CHEST PA AND LATERAL COMPARISON: CT chest and chest radiograph of January 27, 2020 FINDINGS: Hardware: No internal hardware identified. Heart: Normal size and appearance. Mediastinum: Normal mediastinal contour. Lungs: Expanded and clear. Incidental note made of chronic elevation of the right hemidiaphragm with eventration of liver underneath the diaphragm. Bones: No aggressive bony process. 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 No acute airspace disease or other acute infiltrate noted Reading Location: [facility]
--- OUTSIDE RECORDS SUMMARY | 2025-05-22 22:56 | XMS RPT_ITS | CCD ---
Author Organization [facility] Inform ion Partnership [facility] Care Team Providers Care [employer] D[employer] Steward/Stewardess Name Role Phone Cedric Tran Unavailable Carlota Deleon Unavailable Unavailable Cedric Tran MD Primary Care Provider Unavailable Primary Care Provider UnavailMARIXA Erwin Referring Unavailable MARIXA CLARKE Attending Unavailable SEAN MCKNIGHT Attending Unavailable Patt Gutierrez Admitting Unavailable Care Physician, No Primary Primary Care Unava ilable Brenda Patt Ruma Consulting Unavailable Patt Gutierrez Attending Unavailable Care Physician, No Primary Primary Care Unava ilable Brien Dotson Attending Unavailable Koram, Patt Ruma Admitting Unavailable Editham Patt Ruma Consulting Unavailable Brien Dotson Attending Unavailable Brien Dotson Consulting Unavailable Medications Current Medications Medication Drug Class(es) Dates Sig (Normalized) Sig (Original) [id number] 200 actuat albuterol 0.09 mg/actuat metered dose inhaler (8 sources) beta2-Adrenergic Agonist Start: 01-17-2025 take 2 puff(s) by inhalation every four hours as needed for wheezing albuterol HFA (PROVENTIL HFA, VENTOLIN HFA) 90 mcg/actuation inhaler Indications: Wheezing Inhale 2 puffs as instructed every 4 hours as needed for wheezing/shortnes s of breath. 1 each 01/17/2025 Active Start: 03-01-2021 End: 03-10-2021 take 2 puff(s) by inhalation every four hours as needed for wheezing albuterol 90 mcg/inh inhalation aerosol ; 2 puff(s) inhaled every 4 hours, As Needed for wheezing or shortness of breath Quantity: 1 Refills: 0 Ordered: 01-Mar-2021 Carlota Deleon Start: 01-Mar-2021 End: 10-Mar-2021 Generic Substitution Allowed Comments: For inhalation only.It is very important that you take or use this exactly as directed. Do not skip doses or discontinue unless directed by your doctor.Obtain medical advice before taking any non-prescription drugs as some may affect the action of this medication.Shake well before use. Start: 01-13-2018 End: 01-17-2025 take 2 puff(s) by inhalation every six hours as needed albuterol HFA (PROAIR HFA) 90 mcg/actuation inhaler Inhale 2 Puffs as instructed every 6 hours as needed. 1 Inhaler 01/13/2018 01/17/2025 Discontinued Comment on above: For inhalation only. It is very important that you take or use this exactly as directed. Do not skip doses or discontinue unless directed by your doctor.Obtain medical advice before taking any non-prescription drugs as some may affect the action of this medication.Shake well before use. Inhale 2 Puffs as in structed every 6 hours as needed. amoxicillin 875 mg / clavulanate 125 mg oral tablet (2 sources) Penicillin-class Antibacterial Start: 5 End: 5 take 1 tablet by mouth twice daily amoxicillin-clavu lanate potassium (AUGMENTIN) 875-125 mg per tablet Indications: Lower resp. tract infection Take 1 tablet by mouth two times a day for 5 days. 10 tablet 01/17/2025 01/22/2025 Active Start: 09-10-2022 End: 09-17-2022 take 1 tablet by mouth twice daily amoxicillin-clavulanic acid (AUGMENTIN) 875-125 mg per tablet Indications: Sinobronchitis Take 1 tablet by mouth twice daily for 7 days. 14 tablet 0 09/10/2022 09/17/2022 Active Comment on above: Take 1 tablet by sisi th twice daily for 7 days. azithromycin 250 mg oral tablet (2 sources) Macrolide Antimicrobial Start: 01-18-20 25 End: 01-23-20 25 take 2 tablets by mouth once daily, then take 1 tablet by mouth once daily azithromycin (ZITHROMAX) 250 mg tablet Indications: Lower resp. tract infection Take 2 tablets by mouth once daily for 1 day, THEN 1 tablet once daily for 4 days. 6 tablet 01/17/2025 01/22/2025 Active Start: 03-01-2021 End: 03-05-2021 Zithromax Z-Van 250 mg oral tablet ; 2 tab(s) by mouth at once on day 1, then 1 tablet once a day on days 2-5 Quantity: 6 Refills: 0 Ordered: 01-Mar-2021 Carlota Deleon Start: 01-Mar-2021 End: 05-Mar-2021 Generic Substitution Allowed Comments: Do not take dairy products, antacids, or iron preparations within one hour of this medication.Finish all this medication unless otherwise directed by prescriber. Comment on above: Do not take dairy pr oducts, antacids, or iron preparations within one hour of this medication.Finish all this medication unless otherwise directed by prescriber. fluticasone propionate 0.05 mg/actuat metered dose nasal spray (6 sources) Corticosteroid Start: take 2 spray(s) by mouth once daily fluticasone (FLONASE) 50 mcg/actuation nasal spray Indications: Sinobronchitis Use 2 Sprays in each nostril once daily. Rinse mouth after use. 1 Bottle 01/22/2019 Active Comment on above: Use 2 Sprays in each nostril once daily. Rinse mouth after use. Inhalational Spacing Device (1 source) Start: End: Inhalational Spacing Device 1 device one time only for 1 dose. 1 each 01/17/2025 01/17/2025 Active loratadine 10 mg oral tablet (6 sources) Start: take 1 tablet by mouth once daily loratadine (CLARITIN) 10 mg tablet Take 1 tablet by mouth once daily. 30 tablet 11 03/12/2018 Active Comment on above: Take [address] [facility] once daily. nystatin [id number] unt/ml topical cream (2 sources) Polyene Antifungal Start: End: nystatin (MYCOSTATIN) cream Apply to affected area twice daily for 14 days. 30 g 0 09/05/2022 09/19/2022 Active Comment on above: Apply to affected ar ea twice daily for 14 days. predniSONE 10 mg oral tablet (2 sources) Start: 025 End: predniSONE (DELTASONE) 10 mg tablet Indications: Wheezing Take 4 tabs daily for 3 days, then 2 tabs daily for 3 days, then 1 tab daily for 3 days with food. 21 tablet 01/17/2025 01/26/2025 Active Start: 09-10-2022 End: 09-14-2022 take 2 tablets by mouth once daily at mealtime predniSONE (DELTASONE) 20 mg tablet Indications: Sinobronchitis Take 2 tablets by mouth once daily for 4 days. Take daily with food. 8 tablet 0 09/10/2022 09/14/2022 Active Comment on above: Take 2 tablets by mo [facility] once daily for 4 days. Take daily with food. Completed/Discontinued Medications Medication Drug Class(es) Dates Sig (Normalized) Sig (Original) benzonatate 100 mg oral capsule (4 sources) Non-narcotic Antitussive Start: 09-05-2022 End: 05-05-2023 take 1 capsule by mouth three times daily as needed for cough benzonatate (TESSALON PERLES) 100 mg capsule Indications: Sinobronchitis Take 1 capsule by mouth three times daily as needed for cough. 12 capsule 0 09/10/2022 05/05/2023 Discontinued Comment on above: Take 1 capsule by mo ut three times daily as needed for cough. Problems Active Problems Problem Classification Problem Date Documented Da te Episodic/Chronic Chronic obstructive pulmonary disease and bronchiectasis (2 sources) Chronic obstructive lung disease; Translations: [Chronic airway obstruction, not elsewhere classified] 03-01-2021 Chronic Other gastrointestinal disorders (1 source) Diarrhea of presumed infectious origin; Translations: [Diarrhea, unspecified] 05-05-2023 Episodic Other inflammatory condition of skin (1 source) Intertrigo; Translations: [Erythema intertrigo] Episodic Other lower respiratory disease (2 sources) Cough; Translations: [Acute cough] 01-17-2025 Episodic Other lower respiratory disease (1 source) Lower respiratory tract infection; Translations: [Unspecified acute lower respiratory infection] 01-17-2025 Episodic Other lower respiratory disease (1 source) Wheezing; Translations: [Wheezing] 01-17-2025 Episodic Other lower respiratory disease (2 sources) Wheezing; Translations: [Wheeze] Onset: 01-17-2025 Episodic Other lower respiratory disease (1 source) Unspecified acute lower respiratory infection; Translations: [Lower resp. tract infection] Onset: 01-17-2025 Episodic Other nutritional; endocrine; and metabolic disorders (6 sources) Obesity; Translations: [Obesity, unspecified] Onset: 03-02-2015 03-02-2015 Chronic Other upper respiratory infections (1 source) Chronic sinusitis; Translations: [Chronic sinusitis, unspecified] Chronic Other upper respiratory infections (2 sources) Acute upper respiratory infection; Translations: [Acute upper respiratory infections of unspecified site] 03-01-2021 Episodic Otitis media and related conditions (2 sources) Acute left otitis media; Translations: [Unspecified otitis media] 03-01-2021 Episodic Pneumonia (except that caused by tuberculosis or sexually transmitted disease) (5 sources) Pneumonia, unspecified organism; Translations: [Pneumonia, organism unspecified] Onset: 12-09-2006 Resolved: 06-27-2011 06-27-2011 Episodic Residual codes; unclassified (1 source) Influenza-like symptoms; Translations: [Other general symptoms and signs] Episodic Unclassified (2 sources) COUGH CHEST CONGESTION 03-01-2021 Comment on above: COUGH CHEST CONGESTI ON Unclassified (1 source) Acute cough; Translations: [Acute cough] Onset: 01-17-2025 Past or Other Problems Problem Classification Problem Date Documented Da te Episodic/Chronic Abdominal hernia (6 sources) Hernia of anterior abdominal wall; Translations: [Ventral hernia without obstruction or gangrene] Onset: 05-23-2011 05-23-2011 Episodic Deficiency and other anemia (6 sources) Anemia; Translations: [Anemia, unspecified] Onset: 03-18-2008 03-18-2008 Episodic Essential hypertension (3 sources) Essential hypertension; Translations: [Essential (primary) hypertension] Onset: 04-02-2007 Resolved: 04-02-2007 04-08-2024 Chronic Other circulatory disease (6 sources) Elevated blood-pressure reading without diagnosis of hypertension; Translations: [Elevated blood-pressure reading, without diagnosis of hypertension] Onset: 04-02-2007 04-02-2007 Episodic Other lower respiratory disease (6 sources) Disorder of lung; Translations: [Other disorders of lung] Onset: 01-23-2007 01-23-2007 Episodic Other lower respiratory disease (6 sources) Disorder of diaphragm; Translations: [Disorders of diaphragm] Onset: 02-17-2007 02-17-2007 Episodic Other lower respiratory disease (3 sources) Finding of respiration; Translations: [Other forms of dyspnea] Onset: 01-23-2007 Resolved: 07-02-2016 07-02-2016 Episodic Results Test Name Value Interpretation Reference Range Facility Respiratory Cultureon 2024 RESPC Streptococcus pneumoniae Amount Growth 2+ Streptococcus pneumoniae: REACTION Cefotaxime Islt AMBREEN 0.25 S Cefotaxime Islt AMBREEN 0.25 S cefTRIAXone Islt AMBREEN 0.5 S cefTRIAXone Islt AMBREEN 0.5 S Clindamycin Islt AMBREEN <=0.25 S Erythromycin Islt AMBREEN >=8 R levoFLOXacin Islt AMBREEN 0.5 S Moxifloxacin Islt AMBREEN 0.12 S TMP SMX Islt AMBREEN <=10 S Vancomycin Islt AMBREEN 0.5 S Penicillin Islt AMBREEN 1 R Penicillin Islt AMBREEN 1 S Penicillin Islt AMBREEN 1 I Normal [facility] Comment on above: Performed By: #### L 300.8000, L503.7505, L503.6005, L100.0100, L501.4021, L500.2500 #### [facility] [address] [place], [address] Basic Metabolic Profile (BMP )on 01-31-2025 BUN Normal 4-19 [facility] Comment on above: Result Comment: Canc elled via OM: Order cancelled - Patient discharged Performed By: #### L 500.2500, L100.0100 ####[facility] [address] [place], [address] BUN/CRE Normal 10-20 [facility] Comment on above: Result Comment: Canc elled via OM: Order cancelled - Patient discharged Performed By: #### L 500.2500, L100.0100 ####[facility] [address] [place], [address] Calcium Normal 7.6-11.0 [facility] Comment on above: Result Comment: Canc elled via OM: Order cancelled - Patient discharged Performed By: #### L 500.2500, L100.0100 ####[facility] [address] [place], [address] CL Normal 98-108 [facility] Comment on above: Result Comment: Canc elled via OM: Order cancelled - Patient discharged Performed By: #### L 500.2500, L100.0100 ####[facility] [address] [place], [address] CO2 Normal 21.0-32.0 [facility] Comment on above: Result Comment: Canc elled via OM: Order cancelled - Patient discharged Performed By: #### L 500.2500, L100.0100 ####[facility] [address] [place], [address] CREAT,SERUM Normal 0.70-1.20 [facility] Comment on above: Result Comment: Canc elled via OM: Order cancelled - Patient discharged Performed By: #### L 500.2500, L100.0100 ####[facility] [address] [place], [address] eGFR Normal >60 [facility] Comment on above: Result Comment: Canc elled via OM: Order cancelled - Patient discharged Performed By: #### L 500.2500, L100.0100 ####[facility] [address] [place], [address] GAP Normal 5-15 [facility] Comment on above: Result Comment: Canc elled via OM: Order cancelled - Patient discharged Performed By: #### L 500.2500, L100.0100 ####[facility] [address] [place], [address] GLU Normal 70-99 [facility] Comment on above: Result Comment: Canc elled via OM: Order cancelled - Patient discharged Performed By: #### L 500.2500, L100.0100 ####[facility] [address] [place], [address] Potassium Normal 3.3-5.1 [facility] Comment on above: Result Comment: Canc elled via OM: Order cancelled - Patient discharged Performed By: #### L 500.2500, L100.0100 ####[facility] [address] [place], [address] Basic Metabolic Profile (BMP) Normal 133-145 [facility] Comment on above: Result Comment: Canc elled via OM: Order cancelled - Patient discharged Performed By: #### L 500.2500, L100.0100 ####[facility] [address] [place], [address] CBC W/Diff, Automatedon 05-0 5-202 Absolute Neut Normal 2.0-7.7 [facility] Comment on above: Result Comment: Canc elled via OM: Order cancelled - Patient discharged Performed By: #### L 500.2500, L100.0100 ####[facility] [address] [place], [address] HCT Normal 40-54 [facility] Comment on above: Result Comment: Canc elled via OM: Order cancelled - Patient discharged Performed By: #### L 500.2500, L100.0100 ####[facility] [address] [place], [address] HGB Normal 13.0-16.5 [facility] Comment on above: Result Comment: Canc elled via OM: Order cancelled - Patient discharged Performed By: #### L 500.2500, L100.0100 ####[facility] [address] [place], [address] MCH Normal 27.0-32.0 [facility] Comment on above: Result Comment: Canc elled via OM: Order cancelled - Patient discharged Performed By: #### L 500.2500, L100.0100 ####[facility] [address] [place], [address] MCHC Normal 32-36 [facility] Comment on above: Result Comment: Canc elled via OM: Order cancelled - Patient discharged Performed By: #### L 500.2500, L100.0100 ####[facility] [address] [place], [address] MCV Normal 80-94 [facility] Comment on above: Result Comment: Canc elled via OM: Order cancelled - Patient discharged Performed By: #### L 500.2500, L100.0100 ####[facility] [address] [place], [address] NEUT% Normal 47-70 [facility] Comment on above: Result Comment: Canc elled via OM: Order cancelled - Patient discharged Performed By: #### L 500.2500, L100.0100 ####[facility] [address] [place], [address] PLT Normal 150-450 [facility] Comment on above: Result Comment: Canc elled via OM: Order cancelled - Patient discharged Performed By: #### L 500.2500, L100.0100 ####[facility] [address] [place], [address] RBC Normal 4.6-6.2 [facility] Comment on above: Result Comment: Canc elled via OM: Order cancelled - Patient discharged Performed By: #### L 500.2500, L100.0100 ####[facility] [address] [place], [address] RDW CV Normal 11.6-14.6 [facility] Comment on above: Result Comment: Canc elled via OM: Order cancelled - Patient discharged Performed By: #### L 500.2500, L100.0100 ####[facility] [address] [place], [address] RDW SD Normal 35.1-43.9 [facility] Comment on above: Result Comment: Canc elled via OM: Order cancelled - Patient discharged Performed By: #### L 500.2500, L100.0100 ####[facility] [address] [place], [address] WBC Normal 4.4-11.0 [facility] Comment on above: Result Comment: Canc elled via OM: Order cancelled - Patient discharged Performed By: #### L 500.2500, L100.0100 ####[facility] [address] [place], [address] Basic Metabolic Profile (BMP )on 01-30-2025 BUN Normal 4-19 [facility] Comment on above: Result Comment: Canc elled via OM: Order cancelled - Patient discharged Performed By: #### L 500.2500, L100.0100 ####[facility] [address] [place], [address] BUN/CRE Normal 10-20 [facility] Comment on above: Result Comment: Canc elled via OM: Order cancelled - Patient discharged Performed By: #### L 500.2500, L100.0100 ####[facility] [address] [place], [address] Calcium Normal 7.6-11.0 [facility] Comment on above: Result Comment: Canc elled via OM: Order cancelled - Patient discharged Performed By: #### L 500.2500, L100.0100 ####[facility] [address] [place], [address] CL Normal 98-108 [facility] Comment on above: Result Comment: Canc elled via OM: Order cancelled - Patient discharged Performed By: #### L 500.2500, L100.0100 ####[facility] [address] [place], [address] CO2 Normal 21.0-32.0 [facility] Comment on above: Result Comment: Canc elled via OM: Order cancelled - Patient discharged Performed By: #### L 500.2500, L100.0100 ####[facility] [address] [place], [address] CREAT,SERUM Normal 0.70-1.20 [facility] Comment on above: Result Comment: Canc elled via OM: Order cancelled - Patient discharged Performed By: #### L 500.2500, L100.0100 ####[facility] [address] [place], [address] eGFR Normal >60 [facility] Comment on above: Result Comment: Canc elled via OM: Order cancelled - Patient discharged Performed By: #### L 500.2500, L100.0100 ####[facility] [address] [place], [address] GAP Normal 5-15 [facility] Comment on above: Result Comment: Canc elled via OM: Order cancelled - Patient discharged Performed By: #### L 500.2500, L100.0100 ####[facility] [address] [place], [address] GLU Normal 70-99 [facility] Comment on above: Result Comment: Canc elled via OM: Order cancelled - Patient discharged Performed By: #### L 500.2500, L100.0100 ####[facility] [address] [place], [address] Potassium Normal 3.3-5.1 [facility] Comment on above: Result Comment: Canc elled via OM: Order cancelled - Patient discharged Performed By: #### L 500.2500, L100.0100 ####[facility] [address] [place], [address] Basic Metabolic Profile (BMP) Normal 133-145 [facility] Comment on above: Result Comment: Canc elled via OM: Order cancelled - Patient discharged Performed By: #### L 500.2500, L100.0100 ####[facility] [address] [place], [address] CBC W/Diff, Automatedon 05-0 -2024 Absolute Neut Normal 2.0-7.7 [facility] Comment on above: Result Comment: Canc elled via OM: Order cancelled - Patient discharged Performed By: #### L 500.2500, L100.0100 ####[facility] [address] [place], [address] HCT Normal 40-54 [facility] Comment on above: Result Comment: Canc elled via OM: Order cancelled - Patient discharged Performed By: #### L 500.2500, L100.0100 ####[facility] [address] [place], [address] HGB Normal 13.0-16.5 [facility] Comment on above: Result Comment: Canc elled via OM: Order cancelled - Patient discharged Performed By: #### L 500.2500, L100.0100 ####[facility] [address] [place], [address] MCH Normal 27.0-32.0 [facility] Comment on above: Result Comment: Canc elled via OM: Order cancelled - Patient discharged Performed By: #### L 500.2500, L100.0100 ####[facility] [address] [place], [address] MCHC Normal 32-36 [facility] Comment on above: Result Comment: Canc elled via OM: Order cancelled - Patient discharged Performed By: #### L 500.2500, L100.0100 ####[facility] [address] [place], [address] MCV Normal 80-94 [facility] Comment on above: Result Comment: Canc elled via OM: Order cancelled - Patient discharged Performed By: #### L 500.2500, L100.0100 ####[facility] [address] [place], [address] NEUT% Normal 47-70 [facility] Comment on above: Result Comment: Canc elled via OM: Order cancelled - Patient discharged Performed By: #### L 500.2500, L100.0100 ####[facility] [address] [place], [address] PLT Normal 150-450 [facility] Comment on above: Result Comment: Canc elled via OM: Order cancelled - Patient discharged Performed By: #### L 500.2500, L100.0100 ####[facility] [address] [place], [address] RBC Normal 4.6-6.2 [facility] Comment on above: Result Comment: Canc elled via OM: Order cancelled - Patient discharged Performed By: #### L 500.2500, L100.0100 ####[facility] [address] [place], [address] RDW CV Normal 11.6-14.6 [facility] Comment on above: Result Comment: Canc elled via OM: Order cancelled - Patient discharged Performed By: #### L 500.2500, L100.0100 ####[facility] [address] [place], [address] RDW SD Normal 35.1-43.9 [facility] Comment on above: Result Comment: Canc elled via OM: Order cancelled - Patient discharged Performed By: #### L 500.2500, L100.0100 ####[facility] [address] [place], [address] WBC Normal 4.4-11.0 [facility] Comment on above: Result Comment: Canc elled via OM: Order cancelled - Patient discharged Performed By: #### L 500.2500, L100.0100 ####[facility] [address] [place], [address] Basic Metabolic Profile (BMP )on 01-29-2025 BUN Normal 4-19 [facility] Comment on above: Result Comment: Canc elled via OM: Order cancelled - Patient discharged Performed By: #### L 100.0100, L500.2500 ####[facility] [address] [place], [address] BUN/CRE Normal 10-20 [facility] Comment on above: Result Comment: Canc elled via OM: Order cancelled - Patient discharged Performed By: #### L 100.0100, L500.2500 ####[facility] [address] [place], [address] Calcium Normal 7.6-11.0 [facility] Comment on above: Result Comment: Canc elled via OM: Order cancelled - Patient discharged Performed By: #### L 100.0100, L500.2500 ####[facility] [address] [place], [address] CL Normal 98-108 [facility] Comment on above: Result Comment: Canc elled via OM: Order cancelled - Patient discharged Performed By: #### L 100.0100, L500.2500 ####[facility] [address] [place], [address] CO2 Normal 21.0-32.0 [facility] Comment on above: Result Comment: Canc elled via OM: Order cancelled - Patient discharged Performed By: #### L 100.0100, L500.2500 ####[facility] [address] [place], [address] CREAT,SERUM Normal 0.70-1.20 [facility] Comment on above: Result Comment: Canc elled via OM: Order cancelled - Patient discharged Performed By: #### L 100.0100, L500.2500 ####[facility] [address] [place], [address] eGFR Normal >60 [facility] Comment on above: Result Comment: Canc elled via OM: Order cancelled - Patient discharged Performed By: #### L 100.0100, L500.2500 ####[facility] [address] [place], [address] GAP Normal 5-15 [facility] Comment on above: Result Comment: Canc elled via OM: Order cancelled - Patient discharged Performed By: #### L 100.0100, L500.2500 ####[facility] [address] [place], [address] GLU Normal 70-99 [facility] Comment on above: Result Comment: Canc elled via OM: Order cancelled - Patient discharged Performed By: #### L 100.0100, L500.2500 ####[facility] [address] [place], [address] Potassium Normal 3.3-5.1 [facility] Comment on above: Result Comment: Canc elled via OM: Order cancelled - Patient discharged Performed By: #### L 100.0100, L500.2500 ####[facility] [address] [place], [address] Basic Metabolic Profile (BMP) Normal 133-145 [facility] Comment on above: Result Comment: Canc elled via OM: Order cancelled - Patient discharged Performed By: #### L 100.0100, L500.2500 ####[facility] [address] [place], [address] CBC W/Diff, Automatedon 05-0 -2024 Absolute Neut Normal 2.0-7.7 [facility] Comment on above: Result Comment: Canc elled via OM: Order cancelled - Patient discharged Performed By: #### L 100.0100, L500.2500 ####[facility] [address] [place], [address] HCT Normal 40-54 [facility] Comment on above: Result Comment: Canc elled via OM: Order cancelled - Patient discharged Performed By: #### L 100.0100, L500.2500 ####[facility] [address] [place], [address] HGB Normal 13.0-16.5 [facility] Comment on above: Result Comment: Canc elled via OM: Order cancelled - Patient discharged Performed By: #### L 100.0100, L500.2500 ####[facility] [address] [place], [address] MCH Normal 27.0-32.0 [facility] Comment on above: Result Comment: Canc elled via OM: Order cancelled - Patient discharged Performed By: #### L 100.0100, L500.2500 ####[facility] [address] [place], [address] MCHC Normal 32-36 [facility] Comment on above: Result Comment: Canc elled via OM: Order cancelled - Patient discharged Performed By: #### L 100.0100, L500.2500 ####[facility] [address] [place], [address] MCV Normal 80-94 [facility] Comment on above: Result Comment: Canc elled via OM: Order cancelled - Patient discharged Performed By: #### L 100.0100, L500.2500 ####[facility] [address] [place], [address] NEUT% Normal 47-70 [facility] Comment on above: Result Comment: Canc elled via OM: Order cancelled - Patient discharged Performed By: #### L 100.0100, L500.2500 ####[facility] [address] [place], [address] PLT Normal 150-450 [facility] Comment on above: Result Comment: Canc elled via OM: Order cancelled - Patient discharged Performed By: #### L 100.0100, L500.2500 ####[facility] [address] [place], [address] RBC Normal 4.6-6.2 [facility] Comment on above: Result Comment: Canc elled via OM: Order cancelled - Patient discharged Performed By: #### L 100.0100, L500.2500 ####[facility] [address] [place], [address] RDW CV Normal 11.6-14.6 [facility] Comment on above: Result Comment: Canc elled via OM: Order cancelled - Patient discharged Performed By: #### L 100.0100, L500.2500 ####[facility] [address] [place], [address] RDW SD Normal 35.1-43.9 [facility] Comment on above: Result Comment: Canc elled via OM: Order cancelled - Patient discharged Performed By: #### L 100.0100, L500.2500 ####[facility] [address] [place], [address] WBC Normal 4.4-11.0 [facility] Comment on above: Result Comment: Canc elled via OM: Order cancelled - Patient discharged Performed By: #### L 100.0100, L500.2500 ####[facility] [address] [place], [address] Basic Metabolic Profile (BMP )on 01-28-2025 BUN/CRE 10.6 RATIO Normal 10-20 [facility] Comment on above: Performed By: #### L 500.2500, L100.0100 ####[facility] [address] [place], [address] Calcium [Mass/Vol] 8.1 mg/dL Normal 7.6-11.0 [facility] Comment on above: Performed By: #### L 500.2500, L100.0100 ####[facility] [address] [place], [address] Chloride [Moles/Vol] 100 mmol/L Normal 98-108 [facility] Comment on above: Performed By: #### L 500.2500, L100.0100 ####[facility] [address] [place], [address] CO2 [Moles/Vol] 23.2 mmol/L Normal 21.0-32.0 [facility] Comment on above: Performed By: #### L 500.2500, L100.0100 ####[facility] [address] [place], [address] Creatinine [Mass/Vol] 0.81 mg/dL Normal 0.70-1.20 [facility] Comment on above: Performed By: #### L 500.2500, L100.0100 ####[facility] [address] [place], [address] ECRCL 123.61 ml/min Normal 50-250 [facility] Comment on above: Performed By: #### L 500.2500, L100.0100 ####[facility] [address] [place], [address] GAP 13 Normal 5-15 [facility] Comment on above: Performed By: #### L 500.2500, L100.0100 ####[facility] [address] [place], [address] GFR/1.73 sq M.predicted among non-blacks MDRD (S/P/Bld) [Vol rate/Area] 100 mL/min/{1.73_m2} Normal >60 [facility] Comment on above: Result Comment: mL/m in/1.73m2 CKD-EPI Creatinine Equation (2020) Performed By: #### L 500.2500, L100.0100 ####[facility] [address] [place], [address] Glucose [Mass/Vol] 111 mg/dL High 70-99 [facility] Comment on above: Performed By: #### L 500.2500, L100.0100 ####[facility] [address] [place], [address] Potassium [Moles/Vol] 3.9 mmol/L Normal 3.3-5.1 [facility] Comment on above: Result Comment: Hemo lysis present, Results??could be affected. ?? Performed By: #### L 500.2500, L100.0100 ####[facility] [address] [place], [address] Sodium [Moles/Vol] 137 mmol/L Normal 133-145 [facility] Comment on above: Performed By: #### L 500.2500, L100.0100 ####[facility] [address] [place], [address] Urea nitrogen [Mass/Vol] 9 mg/dL Normal 4-19 [facility] Comment on above: Performed By: #### L 500.2500, L100.0100 ####[facility] [address], [address] CBC W/Diff, Automatedon 05-0 PLT EST ADEQUATE Normal ADEQ [facility] Comment on above: Performed By: #### L 500.2500, L100.0100 ####[facility] [address] [place], [address] SMEAR COMMENT SCANNED Normal [facility] Comment on above: Performed By: #### L 500.2500, L100.0100 ####[facility] [address] [place], [address] Discharge Instructionon 05-0 Discharge Instruction [facility] Medical Records Department [address] [place] [address] Instructions for Home/Discharge Instructions 01/28/25 0749 MR#: [id number] Acct: [id number] Name: JUAN FRANCISCO SHAW Rep #: [id number] : 1960 64 From: Brien Dotson MD PCP: Care Physician,No Primary Status:ADM IN Discharge Instructions Diet Discharge Diet: No restrictions DC O2, CPAP, BIPAP needs Home O2 Discharge instructions: No Dressing / Incision Discharge Activity: Return to Normal Activity Dressing / Incision Call your doctor if you observe: Fever of 101 or Higher, Shortness of breath, Dizziness, Fainting spells, Swelling in the ankles, Chest pain and Increased palpitations (irregular heartbeat) Follow Up Care Test Results: Test results from this visit will be discussed in further detail at your follow-up appointment, if applicable. Discharge Plan Admission Admit Date/Time: 01/26/25 11:09 Attending Provider: Brien Dotson Primary Care Provider: Biju Physician,No Primary Consulting Providers: Patt Gutierrez Discharge Orders/Prescriptions Prescriptions: New amlodipine 10 mg Tablet 10 mg PO DAILY 30 Days Qty: 30 0RF cefdinir 300 mg capsule 300 mg PO BID 6 Days Qty: 12 0RF azithromycin 500 mg tablet 500 mg PO DAILY 3 Days Qty: 3 0RF Continued albuterol sulfate 90 mcg/actuation HFA aerosol inhaler 2 puff inhalation Q4H PRN (Reason: wheezing) Referrals / Follow Up: Ryne Subramanian MD [Non-Staff] - Care Physician,No Primary [Primary Care Provider] - Disposition Disposition (needs filled in before D/C Order can be placed): Home, Self Care 01/28/25 0752 Brien Dotson MD CC: Dr. Patt Gutierrez MD; No Primary Care Physician Signed Normal [facility] Basic Metabolic Profile (BMP )on 01-27-2025 BUN/CRE 14.1 RATIO Normal 10-20 [facility] Comment on above: Performed By: #### L 100.0100, L500.2500 #### [facility] [address] [place], [address] Calcium [Mass/Vol] 7.8 mg/dL Normal 7.6-11.0 [facility] Comment on above: Performed By: #### L 100.0100, L500.2500 #### [facility] [address] [place], [address] Chloride [Moles/Vol] 103 mmol/L Normal 98-108 [facility] Comment on above: Performed By: #### L 100.0100, L500.2500 #### [facility] [address] [place], [address] CO2 [Moles/Vol] 25.4 mmol/L Normal 21.0-32.0 [facility] Comment on above: Performed By: #### L 100.0100, L500.2500 #### [facility] [address] [place], [address] Creatinine [Mass/Vol] 0.72 mg/dL Normal 0.70-1.20 [facility] Comment on above: Performed By: #### L 100.0100, L500.2500 #### [facility] [address] [place], [address] ECRCL 139.07 ml/min Normal 50-250 [facility] Comment on above: Performed By: #### L 100.0100, L500.2500 #### [facility] [address] [place], [address] GAP 10 Normal 5-15 [facility] Comment on above: Performed By: #### L 100.0100, L500.2500 #### [facility] [address] [place], [address] GFR/1.73 sq M.predicted among non-blacks MDRD (S/P/Bld) [Vol rate/Area] 103 mL/min/{1.73_m2} Normal >60 [facility] Comment on above: Result Comment: mL/m in/1.73m2 CKD-EPI Creatinine Equation (2020) Performed By: #### L 100.0100, L500.2500 #### [facility] [address] [place], [address] Glucose [Mass/Vol] 108 mg/dL High 70-99 [facility] Comment on above: Performed By: #### L 100.0100, L500.2500 #### [facility] [address] [place], [address] Potassium [Moles/Vol] 3.6 mmol/L Normal 3.3-5.1 [facility] Comment on above: Performed By: #### L 100.0100, L500.2500 #### [facility] [address] [place], [address] Sodium [Moles/Vol] 139 mmol/L Normal 133-145 [facility] Comment on above: Performed By: #### L 100.0100, L500.2500 #### [facility] [address] [place], [address] Urea nitrogen [Mass/Vol] 10 mg/dL Normal 4-19 [facility] Comment on above: Performed By: #### L 100.0100, L500.2500 #### [facility] [address] [place], [address] CBC W/Diff, Automatedon 05-0 1-202 Absolute Lymph 1.84 X10 3/uL Normal 0.83-4.51 [facility] Comment on above: Performed By: #### L 100.0100, L500.2500 #### [facility] [address] [place], [address] Absolute Neut 8.1 X10 3/uL High 2.0-7.7 [facility] Comment on above: Performed By: #### L 100.0100, L500.2500 #### [facility] [address] [place], [address] Basophils/100 WBC (Bld) 0.4 % Normal 0-1 [facility] Comment on above: Performed By: #### L 100.0100, L500.2500 #### [facility] [address] [place], [address] Eosinophils/100 WBC (Bld) 1.8 % Normal 0-5 [facility] Comment on above: Performed By: #### L 100.0100, L500.2500 #### [facility] [address] [place], [address] Erythrocyte distribution width (RBC) [Ratio] 13.9 % Normal 11.6-14.6 [facility] Comment on above: Performed By: #### L 100.0100, L500.2500 #### [facility] [address] [place], [address] Hematocrit (Bld) [Volume fraction] 40.2 % Normal 40-54 [facility] Comment on above: Performed By: #### L 100.0100, L500.2500 #### [facility] [address] [place], [address] Hemoglobin (Bld) [Mass/Vol] 13.6 g/dL Normal 13.0-16.5 [facility] Comment on above: Performed By: #### L 100.0100, L500.2500 #### [facility] [address] [place], [address] IG% 0.600 Normal 0.0-0.9 [facility] Comment on above: Result Comment: IG% - Immature Granulocytes (promyelocytes, myelocytes and metamyelocytes) > 1% indicates that a LEFT SHIFT is Present. Performed By: #### L 100.0100, L500.2500 #### [facility] [address] [place], [address] Lymphocytes/100 WBC (Bld) 17.0 % Low 19-41 [facility] Comment on above: Performed By: #### L 100.0100, L500.2500 #### [facility] [address] [place], [address] MCH (RBC) [Entitic mass] 30.8 pg Normal 27.0-32.0 [facility] Comment on above: Performed By: #### L 100.0100, L500.2500 #### [facility] [address] [place], [address] MCHC (RBC) [Mass/Vol] 33.8 g/dL Normal 32-36 [facility] Comment on above: Performed By: #### L 100.0100, L500.2500 #### [facility] [address] [place], [address] MCV (RBC) [Entitic vol] 91.0 fL Normal 80-94 [facility] Comment on above: Performed By: #### L 100.0100, L500.2500 #### [facility] [address] [place], [address] Monocytes/100 WBC (Bld) 5.2 % Normal 0-10 [facility] Comment on above: Performed By: #### L 100.0100, L500.2500 #### [facility] [address] [place], [address] Neutrophils/100 WBC (Bld) 75.0 % High 47-70 [facility] Comment on above: Performed By: #### L 100.0100, L500.2500 #### [facility] [address] [place], [address] Nucleated RBC (Bld) [#/Vol] 0 10*3/uL Normal 0-5 [facility] Comment on above: Performed By: #### L 100.0100, L500.2500 #### [facility] [address] [place], [address] Platelet mean volume (Bld) [Entitic vol] 9.0 fL Normal 6.2-12.0 [facility] Comment on above: Performed By: #### L 100.0100, L500.2500 #### [facility] [address] [place], [address] Platelets (Bld) [#/Vol] 277 10*3/uL Normal 150-450 [facility] Comment on above: Performed By: #### L 100.0100, L500.2500 #### [facility] [address] [place], [address] RBC (Bld) [#/Vol] 4.42 10*6/uL Low 4.6-6.2 [facility] Comment on above: Performed By: #### L 100.0100, L500.2500 #### [facility] [address] [place], [address] RDW SD 46.5 fl High 35.1-43.9 [facility] Comment on above: Performed By: #### L 100.0100, L500.2500 #### [facility] [address] [place], [address] WBC (Bld) [#/Vol] 10.8 10*3/uL Normal 4.4-11.0 [facility] Comment on above: Performed By: #### L 100.0100, L500.2500 #### [facility] [address] [place], [address] Gram Stainon 01-27-2025 GS Acceptable Specimen? Yes (<25 Epithelial cells per/lpf) Gram Stain 4+ White Blood Cells No Epithelial cells 3+ Gram positive rods 1+ Gram positive cocci Normal [facility] Comment on above: Performed By: #### L 300.8000, L503.7505, L503.6005, L100.0100, L501.4021, L500.2500 #### [facility] [address] [place], [address] 12 Lead EKGon 01-26-2025 12 Lead EKG [facility] [address] [place] [address] 12 Lead EKG 01/26/25 0807 MR#: [id number] Acct: [id number] Name: JUAN FRANCISCO SHAW Rep #: [id number] : 1960 64 From: Chirag Alberts MD Attending Dr: Dr. Patt Gutierrez MD Status: AD M IN Ordering Dr: Yao Cheng DO Date: 5 Location: [facility] [place] Sex: M C Admitted: 01/26/25 Test Reason : SOB Blood Pressure : */* mmHG Vent. Rate : 80 BPM Atrial Rate : 80 BPM P-R Int : 146 ms QRS Dur : 82 ms QT Int : 424 ms P-R-T Axes : 58 6 34 degrees QTcB Int : 489 ms Normal sinus rhythm Septal infarct , age undetermined Abnormal ECG Confirmed by SANDRA GARCIA, CHIRAG ([id number]), marketing editor MAURICE SAUNDERS ([id number]) on 01/27/2025 1:24:50 PM Referred By: Confirmed By: CHIRAG ALBERTS MD 01/27/25 1324 Date Chirag Alberts MD CC: Dr. Yao Cheng DO; Dr. Patt Gutierrez MD; No Primary Care Physician Signed Normal [facility] Basic Metabolic Profile (BMP )on 01-26-2025 BUN/CRE 17.6 RATIO Normal 10-20 [facility] Comment on above: Performed By: #### L 300.8000, L503.7505, L503.6005, L100.0100, L501.4021, L500.2500 #### [facility] [address] [place], [address] Calcium [Mass/Vol] 8.3 mg/dL Normal 7.6-11.0 [facility] Comment on above: Performed By: #### L 300.8000, L503.7505, L503.6005, L100.0100, L501.4021, L500.2500 #### [facility] [address] [place], [address] Chloride [Moles/Vol] 99 mmol/L Normal 98-108 [facility] Comment on above: Performed By: #### L 300.8000, L503.7505, L503.6005, L100.0100, L501.4021, L500.2500 #### [facility] [address] [place], [address] CO2 [Moles/Vol] 29.2 mmol/L Normal 21.0-32.0 [facility] Comment on above: Performed By: #### L 300.8000, L503.7505, L503.6005, L100.0100, L501.4021, L500.2500 #### [facility] [address] [place], [address] Creatinine [Mass/Vol] 0.81 mg/dL Normal 0.70-1.20 [facility] Comment on above: Performed By: #### L 300.8000, L503.7505, L503.6005, L100.0100, L501.4021, L500.2500 #### [facility] [address] [place], [address] ECRCL 123.61 ml/min Normal 50-250 [facility] Comment on above: Performed By: #### L 300.8000, L503.7505, L503.6005, L100.0100, L501.4021, L500.2500 #### [facility] [address] [place], [place], [facility] GAP 12 Normal 5-15 [facility] Comment on above: Performed By: #### L 300.8000, L503.7505, L503.6005, L100.0100, L501.4021, L500.2500 #### [facility] [address] [place], [address] GFR/1.73 sq M.predicted among non-blacks MDRD (S/P/Bld) [Vol rate/Area] 100 mL/min/{1.73_m2} Normal >60 [facility] Comment on above: Result Comment: mL/m in/1.73m2 CKD-EPI Creatinine Equation (2020) Performed By: #### L 300.8000, L503.7505, L503.6005, L100.0100, L501.4021, L500.2500 #### [facility] [address] [place], [address] Glucose [Mass/Vol] 111 mg/dL High 70-99 [facility] Comment on above: Performed By: #### L 300.8000, L503.7505, L503.6005, L100.0100, L501.4021, L500.2500 #### [facility] [address] [place], [address] Potassium [Moles/Vol] 3.4 mmol/L Normal 3.3-5.1 [facility] Comment on above: Performed By: #### L 300.8000, L503.7505, L503.6005, L100.0100, L501.4021, L500.2500 #### [facility] [address] [place], [address] Sodium [Moles/Vol] 140 mmol/L Normal 133-145 [facility] Comment on above: Performed By: #### L 300.8000, L503.7505, L503.6005, L100.0100, L501.4021, L500.2500 #### [facility] [address] [place], [address] Urea nitrogen [Mass/Vol] 14 mg/dL Normal 4-19 [facility] Comment on above: Performed By: #### L 300.8000, L503.7505, L503.6005, L100.0100, L501.4021, L500.2500 #### [facility] [address] [place], [address] CBC W/Diff, Automatedon 04-3 0-2024 Absolute Lymph 1.77 X10 3/uL Normal 0.83-4.51 [facility] Comment on above: Performed By: #### L 300.8000, L503.7505, L503.6005, L100.0100, L501.4021, L500.2500 #### [facility] [address] [place], [address] Absolute Neut 11.0 X10 3/uL High 2.0-7.7 [facility] Comment on above: Performed By: #### L 300.8000, L503.7505, L503.6005, L100.0100, L501.4021, L500.2500 #### [facility] [address] [place], [address] Basophils/100 WBC (Bld) 0.5 % Normal 0-1 [facility] Comment on above: Performed By: #### L 300.8000, L503.7505, L503.6005, L100.0100, L501.4021, L500.2500 #### [facility] [address] [place], [address] Eosinophils/100 WBC (Bld) 0.7 % Normal 0-5 [facility] Comment on above: Performed By: #### L 300.8000, L503.7505, L503.6005, L100.0100, L501.4021, L500.2500 #### [facility] [address] [place], [address] Erythrocyte distribution width (RBC) [Ratio] 13.8 % Normal 11.6-14.6 [facility] Comment on above: Performed By: #### L 300.8000, L503.7505, L503.6005, L100.0100, L501.4021, L500.2500 #### [facility] [address], [address] Hematocrit (Bld) [Volume fraction] 40.8 % Normal 40-54 [facility] Comment on above: Performed By: #### L 300.8000, L503.7505, L503.6005, L100.0100, L501.4021, L500.2500 #### [facility] [address] [place], [address] Hemoglobin (Bld) [Mass/Vol] 14.0 g/dL Normal 13.0-16.5 [facility] Comment on above: Performed By: #### L 300.8000, L503.7505, L503.6005, L100.0100, L501.4021, L500.2500 #### [facility] [address] [facility] [place], [address] IG% 0.900 Normal 0.0-0.9 [facility] Comment on above: Result Comment: IG% - Immature Granulocytes (promyelocytes, myelocytes and metamyelocytes) > 1% indicates that a LEFT SHIFT is Present. Performed By: #### L 300.8000, L503.7505, L503.6005, L100.0100, L501.4021, L500.2500 #### [facility] [address], [address] Lymphocytes/100 WBC (Bld) 12.7 % Low 19-41 [facility] Comment on above: Performed By: #### L 300.8000, L503.7505, L503.6005, L100.0100, L501.4021, L500.2500 #### [facility] [address] [place], [address] MCH (RBC) [Entitic mass] 30.9 pg Normal 27.0-32.0 [facility] Comment on above: Performed By: #### L 300.8000, L503.7505, L503.6005, L100.0100, L501.4021, L500.2500 #### [facility] [address], [address] MCHC (RBC) [Mass/Vol] 34.3 g/dL Normal 32-36 [facility] Comment on above: Performed By: #### L 300.8000, L503.7505, L503.6005, L100.0100, L501.4021, L500.2500 #### [facility] [address], [address] MCV (RBC) [Entitic vol] 90.1 fL Normal 80-94 [facility] Comment on above: Performed By: #### L 300.8000, L503.7505, L503.6005, L100.0100, L501.4021, L500.2500 #### [facility] [address], [address] Monocytes/100 WBC (Bld) 6.4 % Normal 0-10 [facility] Comment on above: Performed By: #### L 300.8000, L503.7505, L503.6005, L100.0100, L501.4021, L500.2500 #### [facility] [address] [place], [address] Neutrophils/100 WBC (Bld) 78.8 % High 47-70 [facility] Comment on above: Performed By: #### L 300.8000, L503.7505, L503.6005, L100.0100, L501.4021, L500.2500 #### [facility] [address] [place], [address] Nucleated RBC (Bld) [#/Vol] 0 10*3/uL Normal 0-5 [facility] Comment on above: Performed By: #### L 300.8000, L503.7505, L503.6005, L100.0100, L501.4021, L500.2500 #### [facility] [address] [place], [address] Platelet mean volume (Bld) [Entitic vol] 9.1 fL Normal 6.2-12.0 [facility] Comment on above: Performed By: #### L 300.8000, L503.7505, L503.6005, L100.0100, L501.4021, L500.2500 #### [facility] [address] [place], [address] Platelets (Bld) [#/Vol] 288 10*3/uL Normal 150-450 [facility] Comment on above: Performed By: #### L 300.8000, L503.7505, L503.6005, L100.0100, L501.4021, L500.2500 #### [facility] [address] [place], [address] RBC (Bld) [#/Vol] 4.53 10*6/uL Low 4.6-6.2 [facility] Comment on above: Performed By: #### L 300.8000, L503.7505, L503.6005, L100.0100, L501.4021, L500.2500 #### [facility] [address] [place], [address] RDW SD 45.5 fl High 35.1-43.9 [facility] Comment on above: Performed By: #### L 300.8000, L503.7505, L503.6005, L100.0100, L501.4021, L500.2500 #### [facility] [address] [place], [address] WBC (Bld) [#/Vol] 14.0 10*3/uL High 4.4-11.0 [facility] Comment on above: Performed By: #### L 300.8000, L503.7505, L503.6005, L100.0100, L501.4021, L500.2500 #### [facility] [address] [place], [address] CTA Chest W/WO Contraston CTA Chest W/WO Contrast [facility] Imaging Services [address] [place] [address] CTA Chest W/WO Contrast MR#: [id number] Acct: [id number] Name: JUAN FRANCISCO SHAW Rep #: [id number] : 1960 M 64 From: Cedric Ballard MD PCP: Care Physician,No Primary Status: REG ER Study: CTA Chest W/WO Contrast Date of Exam: 01/26/25 Exam# [id number] Ordering Dr: Yao Cheng DO PROCEDURE: CTA CHEST W/WO CONTRAST (CTCTACHWW), 01/26/2025 REASON FOR EXAM: PE, ELEVATED DIMER, SOB TECHNIQUE: CTA chest was performed with IV contrast. Multiplanar reformats and MIP reconstructions were generated. CONTRAST: Isovue 370 VOLUME: 100mL RADIATION DOSE SUMMARY: CTDlvol: 7.12+ 15.83 mGy DLP: 565.48 mGycm One or more dose reduction techniques were used (e.g., Automated exposure control, adjustment of the mA and/or kV according to patient size, use of iterative reconstruction technique). COMPARISON: No prior CT or CTA chest. FINDINGS: Sensitivity for peripheral pulmonary embolus limited by suboptimal opacification of the pulmonary arterial tree to 173 Hounsfield units, as compared with 202 Hounsfield units in the pulmonary veins. Sensitivity further limited by moderate motion artifact. Heart/pericardium: Unremarkable. Aorta: Focal fusiform ectasia of the distal descending aorta to 3.6 x 3.3 cm with mild irregular mural thrombus and/or soft atherosclerotic plaque along the medial margin. Pulmonary arteries: Normal in caliber. No central or definite pulmonary embolism is identified. Lymph nodes: Subcarinal node, 12 mm short axis.. Lungs/pleura: Elevated RIGHT hemidiaphragm. Mild bibasilar likely atelectasis/scarring. Scattered ill-defined vaguely tree-in-bud micronodular opacities throughout the RIGHT middle and lower lobes the RIGHT upper and LEFT lower lobes to a lesser degree. Discrete nodules up to 7 x 4 mm in the LEFT lower lobe (series 2, image 124). Airways: Scattered foci of mucous plugging/endobronchial debris most notable in the lower lobes.. Chest wall: Unremarkable. Upper abdomen: Mild splenomegaly, 13.5 cm. Musculoskeletal: Multilevel spondylosis. Old bilateral rib fractures. CT/CTA Chest W/WO Contrast IMPRESSION: 1. No central or definite pulmonary embolism identified allowing for above limitations. 2. Findings are compatible with an infectious/inflammator y process such as mild pneumonia. Given scattered foci of lower lobe endobronchial debris/mucous plugging, consider mild aspiration. 3. Small nodules up to 5.5 mm average axial diameter, statistically benign and requiring no specific follow-up in a low risk patient. Otherwise, recommend follow-up CT chest in one year per the Fleischner society recommendations for pulmonary nodule follow-up, presuming no history of malignancy or known immunosuppression. 4. Mild mediastinal lymphadenopathy, nonspecific and potentially reactive in the absence of known malignancy. Correlate with medical history and follow-up as indicated. 5. Mild splenomegaly. 6. Additional description as above. Reading Location: [facility] CC: Dr. Yao Cheng DO; No Primary Care Physician Contract Technical Writer: Signed Normal [facility] Chest PA and Lateralon 01-26 Chest PA and Lateral [facility] Imaging Services [address] [place] [address] Chest PA and Lateral MR#: [id number] Acct: [id number] Name: JUAN FRANCISCO SHAW Rep #: [id number] : 1960 M 64 From: Cedric Ballard MD PCP: Care Physician,No Primary Status: [facility] ER Study: Chest PA and Lateral Date of Exam: 01/26/25 Exam# [id number] Ordering Dr: Yao Cheng DO PROCEDURE: CHEST PA AND LATERAL (RADCXR), 01/26/2025 REASON FOR EXAM: SHORTNESS OF BREATH TECHNIQUE: PA and lateral views of the chest were obtained. COMPARISON: 11/12/2012 ; note that images only are available for review, the report is not available at the time of the dictation. FINDINGS: Heart: Similar top-normal heart size. Mediastinum: Similar contours, including widening of the RIGHT paratracheal stripe. Lungs/pleura: Similar ill-defined opacities in the RIGHT lung base and suspected architectural distortion with suspected pleural thickening versus chronic small pleural effusion. Superimposed vague opacities slightly more cranially are probably new from prior. No LEFT pleural effusion or visible pneumothorax. Bones: Old LEFT rib fractures are new from prior. Multilevel spondylosis. Findings suggestive of rotator cuff pathology on the LEFT. Lines and support devices: None. Other: None. RAD/Chest PA and Lateral IMPRESSION: 1. Findings in the RIGHT lung base are consistent with pneumonia, superimposed on chronic findings in the region which are similar to 11/12/2012. Follow-up to radiographic resolution recommended. 2. Additional description as above. Reading Location: [id number] CC: Dr. Yao Cheng, DO; No Primary Care Physician Contract Technical Writer: Signed Normal [facility] D-Dimer Quantitative (DVT/PE )on 01-26-2025 D-DIMER QUANT 0.78 FEU/ug/m Invalid Interpretation Code 0.27-0.49 [facility] Comment on above: Result Comment: D-Di mabel ELEVATED (>0.49): Additional studies and clinical assessments are indicated to conclude diagnosis of: Deep Vein Thrombosis (DVT) or Pulmonary Embolism (PE) CRITICAL VALUE CALLED TO LORA SERRANO (ER) 01/26/25 0911 Kang Moser. RESULTS READ BACK BY SAME. Performed By: #### L 300.8000, L503.7505, L503.6005, L100.0100, L501.4021, L500.2500 #### [facility] [address] [facility] [place], [address] Emergency Department Summary on 01-26-2025 Emergency Department Summary [facility] Medical Records Department [address] [place] [address] Emergency Department Summary 01/26/25 MR#: [id number] Acct: [id number] Name: JUAN FRANCISCO SHAW Rep #: [id number] : 1960 64 From: Yao Cheng DO PCP: Care Physician,No Primary Status:REG ER Location: ED HPI History of Present Illness Chief Complaint: Shortness of Breath Narrative Narrative: Chief complaint and HPI: Cough with known pneumonia. 64-year-old male with no significant past medical history presents for evaluation of cough with recent diagnosis of pneumonia. Patient states since he has had a productive cough and URI type symptoms. States that he was seen in urgent care and diagnosed with pneumonia. Prescribed antibiotics but does not remember which ones. States his cough has worsened overnight. Endorses some mild shortness of breath. Denies any fever, chills, chest pain, abdominal pain, nausea, vomiting. Denies history of tobacco abuse. Review of systems: See HPI Medications: As listed on the chart Allergies: As listed on the chart PFSH: Per chart Vital signs: As listed on the chart. Reviewed. Physical exam: Gen: A O x3, NAD Head: Normocephalic, atraumatic Eyes: No sclera icterus, conjunctiva clear ENT: Moist mucous membranes Neck: Trachea midline, No JVD CV: RRR, no murmurs, no peripheral edema Resp: Lungs CTA BL, no w/r/c, 2 L nasal cannula GI: Abd soft, non-distended, non-tender, no r/r/g Musc: Full ROM, no deformity Skin: Warm, dry Neuro: Alert, oriented, grossly intact, sensation intact Psych: Cooperative, appropriate mood and affect PFS PFS Medical History unable to obtain Home Medications ???Medication ???Instructions ???Recorded ???Last Taken ???Type albuterol sulfate 90 mcg/actuation 2 puff inhalation Q4H PRN wheezi ng 01/26/25 01/25/25 History aerosol inhaler Allergy/AdvReac Type Severity Reaction Status Date / Time No Known Allergies Allergy Verified 01/26/25 07:43 Surgical History (Updated 01/26/25 @ 07:44 by Kelin Mart) S/P middle ear reconstruction Social History Smoking Status: Current every day smoker tobacco type: smokeless tobacco EXAM Physical Exam Const Vital Signs: 01/26/25 07:39 01/26/25 07:42 01/26/25 07:44 Temperature 98.4 F 98.4 F Temperature Source Oral Oral Pulse Rate 83 79 Respiratory Rate 20 H 20 H Respiratory Effort Respiratory Depth Respiratory Pattern Blood Pressure 168/87 H 168/87 H Blood Pressure Mean 114 114 Pulse Ox 96 97 Oxygen Delivery Method Nasal Cannula Nasal Cannula Nasal Cannula Oxygen Flow Rate (L/min) 2 2 01/26/25 07:46 01/26/25 08:11 01/26/25 08:11 Temperature Temperature Source Pulse Rate 79 Respiratory Rate 18 Respiratory Effort Normal Respiratory Depth Normal Respiratory Pattern Normal Normal Blood Pressure Blood Pressure Mean Pulse Ox 96 Oxygen Delivery Method Nasal Cannula Nasal Cannula Oxygen Flow Rate (L/min) 2 2 01/26/25 08:30 01/26/25 08:30 01/26/25 09:00 Temperature 98.4 F 98.4 F Temperature Source Oral Oral Pulse Rate 85 80 80 Respiratory Rate 20 H 20 H 20 H Respiratory Effort Respiratory Depth Respiratory Pattern Blood Pressure 156/110 H 156/110 H 159/82 H Blood Pressure Mean 125 125 107 Pulse Ox 97 97 97 Oxygen Delivery Method Nasal Cannula Nasal Cannula Nasal Cannula Oxygen Flow Rate (L/min) 2 2 2 01/26/25 10:00 01/26/25 10:00 Temperature 98.2 F Temperature Source Oral Pulse Rate 82 80 Respiratory Rate 18 20 H Respiratory Effort Respiratory Depth Respiratory Pattern Blood Pressure 170/98 H 170/90 H Blood Pressure Mean 122 116 Pulse Ox 97 97 Oxygen Delivery Method Nasal Cannula Nasal Cannula Oxygen Flow Rate (L/min) 2 2 MDM MDM MDM Narrative Medical decision making narrative: 64-year-old male with no significant past medical history presents for evaluation of cough with recent diagnosis of pneumonia. On presentation, patient is hypertensive, mildly tachypneic, and hypoxic at 69% on room air. Requiring 2 L nasal cannula. Patient usually does not wear oxygen. Differential diagnosis includes but is not limited to pneumonia, viral illness, PE, ACS, CHF. DuoNebs ordered with 500 cc NS bolus. Laboratory workup ordered with chest x-ray. On chart review, I was unable to find patient's x-ray that he had performed at an urgent care. On chart review, patient was prescribed Augmentin and azithromycin x 5 days on 01/17. Was also given a prednisone taper. CBC with leukocytosis of 14. No anemia. Platelets unremarkable. BMP unremarkable. Chest x- ray shows pneumonia, Rocephin and azithromycin ordered for suspected community-acquired pneumonia. Dimer (more content not included)... Normal [facility] H AND P Exam - Hospitaliston 01-26-2025 H&P Exam - Hospitalist [facility] Medical Records Department [address] [place] [address] H P Exam - Hospitalist 01/26/25 1052 MR#: [id number] Acct: [id number] Name: JUAN FRANCISCO SHAW Rep #: [id number] : 1960 64 From: Patt Gutierrez MD PCP: Care Physician,No Primary Status:ADM IN Location: [facility] [place] [facility] [id number] HPI - General General Date of Admission: 01/26/25 Date of Service: 01/26/25 Chief Complaint: shortness of breath HPI Narrative JUAN FRANCISCO SHAW, is a 64 M with a PMH as outlined who was admitted via the ED on 01/26/2025 with a complaint of shortness of breath. Symptoms have been going on since [facility] he had seen his PCP and was prescribed Augmentin and doxycycline. He took these medications but his shortness of breath and cough persisted. Cough was productive. His cough had worsening shortness of breath and not improved. He denied any fever or chills, chest pain, nausea vomiting or any other symptoms. Review of systems otherwise negative. He decided to come into the ED because symptoms were not improving. Vitals in [facility] ED were BP of 170/90, TN of 80, RR Of 20 and temp of 98.2F. He was saturating at 97% on 2L of oxygen by nasal canula. CBC showed Hb of 14, wbc of 14, platelets of 288. D dimer was 0.78. Chemistry showed sodium of 140, potassium of 3.4, bicarb of 29.2 and Cr of 0.81. Pro BNP was <36 and initial troponin was not elevated. Lactic acid was 1.4. Chest x-ray showed findings in the right lung base consistent with pneumonia. CTA of the chest was negative for PE and showed findings compatible with an infectious versus inflammatory process given scattered foci of lower lobe endobronchial debris and mucous plugging with consideration for aspiration. He is being admitted to be managed for hypoxia due to community acquired pneumonia with failed outpatient therapy. [facility] Medical History unable to obtain Home Medications ???Medication ???Instructions ???Recorded ???Last Taken ???Type albuterol sulfate 90 mcg/actuation 2 puff inhalation Q4H PRN wheezi ng 01/26/25 01/25/25 History aerosol inhaler Allergy/AdvReac Type Severity Reaction Status Date / Time No Known Allergies Allergy Verified 01/26/25 07:43 Family History (Updated 01/26/25 @ 12:14 by Alethea Holliday) Father CHF (congestive heart failure) COPD (chronic obstructive pulmonary disease) Mother Parkinson disease CVA (cerebral vascular accident) Sister COPD (chronic obstructive pulmonary disease) Surgical History (Updated 01/26/25 @ 07:44 by Kelin Mart) S/P middle ear reconstruction Social History Smoking Status: Current every day smoker tobacco type: smokeless tobacco ROS Constitutional Constitutional: Reports fatigue, malaise and weakness; Denies anorexia, change in weight, chills or fever(s) Eyes Eyes: Denies change in vision ENT HEENT: Denies dysphagia, headache(s) or sore throat Cardiovascular Cardiovascular: Reports dyspnea on exertion; Denies chest pain, edema, lightheadedness, orthopnea, palpitations, paroxysmal nocturnal dyspnea, rapid heart rate or syncope Respiratory/Chest Respiratory/Chest: Reports cough, dyspnea, productive cough, shortness of breath at rest and shortness of breath with exertion; Denies excessive phlegm production, hemoptysis or wheezing Gastrointestinal Gastrointestinal: Denies abdominal pain, constipation, diarrhea, dyspepsia, nausea or vomiting Genitourinary Genitourinary: Denies burning urination or dysuria Neurologic Neurologic: Denies confusion, dizziness, focal weakness, headache(s), numbness or seizures Psychiatric Psychiatric: Denies anxiety or depression Endocrine Endocrinology: Denies cold intolerance Hematologic/Lymphatic Hematologic/Lymphatic: Denies anemia Vital Signs Vital Signs Vital Signs: 01/26/25 07:39 01/26/25 07:42 01/26/25 07:44 Temperature 98.4 F 98.4 F Temperature Source Oral Oral Pulse Rate 83 79 Respiratory Rate 20 H 20 H Respiratory Effort Respiratory Depth Respiratory Pattern Blood Pressure 168/87 H 168/87 H Blood Pressure Mean 114 114 Pulse Ox 96 97 Oxygen Delivery Method Nasal Cannula Nasal Cannula Nasal Cannula Oxygen Flow Rate (L/min) 2 2 01/26/25 07:46 01/26/25 08:11 01/26/25 08:11 Temperature Temperature Source Pulse Rate 79 Respiratory Rate 18 Respiratory Effort Normal Respiratory Depth Normal Respiratory Pattern Normal Normal Blood Pressure Blood Pressure Mean Pulse Ox 96 Oxygen Delivery Method Nasal Cannula Nasal Cannula Oxygen Flow Rate (L/min) 2 2 01/26/25 08:30 01/26/25 08:30 01/26/25 09:00 Temperature 98.4 F 98.4 F Temperature Source Oral Oral Pulse Rate 85 80 80 Respiratory Rate 20 H 20 H 20 H Respiratory Effort Respiratory Depth Respiratory Pattern Blood Pressu (more content not included)... Normal [facility] L499.0042on 01-26-2025 Trop T High Sen 20 ng/L Normal <=22 [facility] Comment on above: Performed By: #### L 499.0042 ####[facility] [address] [place], [address] L501.4021on 01-26-2025 Trop T High Sen 22 ng/L Normal <=22 [facility] Comment on above: Performed By: #### L 300.8000, L503.7505, L503.6005, L100.0100, L501.4021, L500.2500 #### [facility] [address] [place], [address] L503.7505on 01-26-2025 proBNP < 36 Normal <=900 [facility] Comment on above: Result Comment: Hear t Failure Unlikely: < 300 pg/mL Heart Failure Likely < 50 Years: > 450 pg/mL 50-75 Years: > 900 pg/mL >75 Years: > 1800 pg/mL Performed By: #### L 300.8000, L503.7505, L503.6005, L100.0100, L501.4021, L500.2500 #### [facility] [address] [place], [place], [address] Lactic Acidon 01-26-2025 Lactate [Moles/Vol] 1.4 mmol/L Normal 0.0-2.0 [facility] Comment on above: Order Comment: Y Performed By: #### L 300.8000, L503.7505, L503.6005, L100.0100, L501.4021, L500.2500 #### [facility] [address] [facility] [place], [address] Legionella Antigen Urineon 0 01-26-2025 LEGU URINE, RANDOM Legionella Antigen result interpretation: L pneumo Ag Ur Ql Negative Presumptive negative for Legionella pneumophila serogroup 1 antigen in urine, suggesting no recent or current infection. Legionella Ag, Urine Negative (See interpretation below) Normal [facility] Comment on above: Performed By: #### L 300.8000, L503.7505, L503.6005, L100.0100, L501.4021, L500.2500 #### [facility] [address] [facility] [place], [address] M100.678on 01-26-2025 M100.678 Pending SARS-CoV-2 (COVID 19) Negative INFLUENZA A Negative INFLUENZA B Negative RSV PCR Negative Normal [facility] Comment on above: Performed By: #### L 300.8000, L503.7505, L503.6005, L100.0100, L501.4021, L500.2500 #### [facility] [address] [facility] [place], [address] Strep pneumoniae Antig(UR,CS F)on 01-26-2025 STPAG URINE INTERPRETATION Positive Urine Positive for pneumococcal pneumonia. Strep pneumo Test Urine POSITIVE for pneumococcal pneumonia.A Streptococcus pneumonia Ag Normal [facility] Comment on above: Performed By: #### L 300.8000, L503.7505, L503.6005, L100.0100, L501.4021, L500.2500 #### [facility] [address] [facility] [place], [address] CNOVon 01-23-2025 CNOV Office Visit (UCWSTR ) JUAN FRANCISCO SHAW ([id number]) 1960 M Date Time Provider Department 01/23/25 3:15 PM SEAN MCKNIGHTMAMADOU During your visit today, we recorded the following information about you: Temperature Pulse Respiration Blood pressure 98.4 degrees 92/minute 20/minute 145/86 Weight 122.8 kg Sean Mcknight APRN.[employer] 01/23/2025 3:58 PM Signed [facility] Subjective HPI HPI Juan Francisco Shaw is a 64 year old male who presents today for CC of cough, wheeze, sob. This started few weeks. Finished zpack, augmentin, prednisone. Hx of hospitalization. Reports s/s improving, but still coughing nonstop. .Patient presents with: Cough: Persisting since JULITA 01/17/25 PAST MEDICAL HISTORY Diagnosis Date Obesity PMH - PAST MEDICAL HISTORY OF 11/05 pneumonia Tobacco use disorder PAST SURGICAL HISTORY Procedure Laterality Date PAST SURGICAL HISTORY OF 2006 chest tube placement/right REPAIR BICEPS TENDON RUPTURE left TMPP MASTOIDECTOMY W/OSSICULAR CHAIN RECNSTJ 1983 Dr. Mobley ALLERGIES Patient has no known allergies. MEDICATIONS predniSONE (DELTASONE) 10 mg tabletTake 4 tabs daily for 3 days, then 2 tabs daily for 3 days, then 1 tab daily for 3 days with food.Disp: 21 tabletRfl: 0 albuterol HFA (PROVENTIL HFA, VENTOLIN HFA) 90 mcg/actuation inhalerInhale 2 puffs as instructed every 4 hours as needed for wheezing/shortness of breath.Disp: 1 eachRfl: 0 fluticasone (FLONASE) 50 mcg/actuation nasal sprayUse 2 Sprays in each nostril once daily. Rinse mouth after use.Disp: 1 BottleRfl: 0 (Patient not taking: Reported on 09/05/2022) loratadine (CLARITIN) 10 mg tabletTake 1 tablet by mouth once daily.Disp: 30 tabletRfl: 11 (Patient not taking: Reported on 09/05/2022) FAMILY HISTORY Problem Relation Age of Onset Stroke Mother Emphysema Father Diabetes Sister Diabetes Mother Social History Tobacco Use Smoking status: Former Current packs/day: 0.00 Average packs/day: 1.5 packs/day for 30.0 years (45.0 ttl pk-yrs) Types: Cigarettes Start date: 11/08/1976 Quit date: 11/08/2006 Years since quittin.2 Smokeless tobacco: Current Types: Chew Tobacco comments: Continues off cigs. Continues to dip snuff. Substance Use Topics Alcohol use: Yes Alcohol/week: 6.0 standard drinks of alcohol Types: 6 Cans of Beer (12oz) per week Comment: weekends only. couple cans of beer. Drug use: No Review of Systems Constitutional: Negative for chills, fatigue and fever. HENT: Negative for ear discharge, ear pain, rhinorrhea, sinus pressure, sinus pain and sore throat. Eyes: Negative for discharge and redness. Respiratory: Positive for cough, shortness of breath and wheezing. Cardiovascular: Negative for chest pain. Skin: Negative for rash. Objective BP 145/86 Pulse 92 Temp 36.9 ?C (98.4 ?F) (Oral) Resp 20 Wt 122.8 kg (270 lb 11.6 oz) SpO2 93% BMI 41.78 kg/m? Physical Exam Constitutional: General: He is not in acute distress. Appearance: He is not toxic-appearing or diaphoretic. HENT: Head: Normocephalic and atraumatic. Cardiovascular: Rate and Rhythm: Normal rate and regular rhythm. Heart sounds: Normal heart sounds, S1 normal and S2 normal. Pulmonary: Effort: Pulmonary effort is normal. Breath sounds: Examination of the right-lower field reveals decreased breath sounds. Examination of the left-lower field reveals decreased breath sounds. Decreased breath sounds and wheezing present. No rhonchi or rales. Comments: Wheezing improved after nebulizer treatment Neurological: Mental Status: He is alert and oriented to person, place, and time. {ASSESSMENT/PLAN: 1. Wheeze - ICD9: 786.07, ICD10: R06.2 Continue regular use of albuterol for next day. Finish atb and steroids Keep f/u appointment this week. -If you experience chest pain/shortness of breath go to ER -no xray at time of exam. -did not want to return for another xray. - ALBUTEROL SULFATE 2.5 MG/3 ML (0.083 %) SOLUTION FOR NEBULIZATION -improvement noted after nebulizer treatment. Sena Mcknight APRN.LIEUTENANT GOVERNOR Disposition The patient was discharged. Procedures Allergies As of Date: 01/23/2025 (No Known Allergies) Date Reviewed: 01/23/2025 Reviewed by: Tanisha Rosas MA - Fully Assessed Reason for Visit: Cough [28] Cmt: Persisting since JULITA 01/17/25 Primary Visit Diagnosis:Wheeze [R06.2] Order(s):[] albuterol 2.5 mg /3 mL (0.083 %) 2.5 mg (PROVENTIL)Disp: Rfl: Prescriptions as of 01/23/2025 - predniSONE (DELTASONE) 10 mg tablet Take 4 tabs daily for 3 days, then 2 tabs daily for 3 days, then 1 tab daily for 3 days with food. - albuterol HFA (PROVENTIL HFA, VENTOLIN HFA) 90 mcg/actuation inhaler Inhale 2 puffs as instructed every 4 hours as needed for wheezing/shortness of breath. - fluticasone (FLONASE) 50 mcg/actuation nasal spray Use 2 Sprays in (more content not included)... Normal [facility] CNOVon 01-17-2025 CNOV Office Visit (UCWSTR ) JUAN FRANCISCO SHAW Bette ([id number]) 1960 M Date Time Provider Department 01/17/25 8:30 AM MARIXA CLARKE [facility] During your visit today, we recorded the following information about you: Temperature Pulse Respiration Blood pressure 99.2 degrees 83/minute 16/minute 128/82 Weight 123.8 kg Marixa Clarke APRN.CNP 01/17/2025 9:44 AM Addendum [facility] Subjective Juan Francisco Shaw is a 64 year old male. Patient presents with: Cough: Cough, chest congestion and SOB x 2 days Cough Associated symptoms include rhinorrhea and shortness of breath. Pertinent negatives include no chest pain, no chills, no ear pain and no sore throat. Juan Francisco Shaw is a 64 year old male who presents with a cough, chest congestion and shortness of breath for the past 2 days. He has a history of restrictive lung disease w/paralyzed diaphragm. He has not had a fever. Cough is productive of green sputum. He has had a runny nose. He took OTC severe cold and flu medication at home. Review of Systems Constitutional: Negative for chills and fever. HENT: Positive for congestion and rhinorrhea. Negative for ear pain and sore throat. Respiratory: Positive for cough and shortness of breath. Cardiovascular: Negative for chest pain. Gastrointestinal: Negative. Musculoskeletal: Negative. Objective BP 128/82 Pulse 83 Temp 37.3 ?C (99.2 ?F) (Tympanic) Resp 16 Wt 123.8 kg (272 lb 14.9 oz) SpO2 96% BMI 42.12 kg/m? PAST MEDICAL HISTORY Diagnosis Date - Obesity - PMH - PAST MEDICAL HISTORY OF 11/05 pneumonia - Tobacco use disorder PAST SURGICAL HISTORY Procedure Laterality Date - PAST SURGICAL HISTORY OF 2006 chest tube placement/right - REPAIR BICEPS TENDON RUPTURE left - TMPP MASTOIDECTOMY W/OSSICULAR CHAIN RECNSTJ 1983 Dr. Mobley ALLERGIES Patient has no known allergies. MEDICATIONS - fluticasone (FLONASE) 50 mcg/actuation nasal spray Use 2 Sprays in each nostril once daily. Rinse mouth after use. (Patient not taking: Reported on 09/05/2022) - loratadine (CLARITIN) 10 mg tablet Take 1 tablet by mouth once daily. (Patient not taking: Reported on 09/05/2022) - albuterol HFA (PROAIR HFA) 90 mcg/actuation inhaler Inhale 2 Puffs as instructed every 6 hours as needed. (Patient not taking: Reported on 01/22/2019 ) FAMILY HISTORY Problem Relation Age of Onset - Stroke Mother - Emphysema Father - Diabetes Sister - Diabetes Mother Social History Tobacco Use - Smoking status: Former Current packs/day: 0.00 Average packs/day: 1.5 packs/day for 30.0 years (45.0 ttl pk-yrs) Types: Cigarettes Start date: 11/08/1976 Quit date: 11/08/2006 Years since quittin.2 - Smokeless tobacco: Current Types: Chew - Tobacco comments: Continues off cigs. Continues to dip snuff. Substance Use Topics - Alcohol use: Yes Alcohol/week: 6.0 standard drinks of alcohol Types: 6 Cans of Beer (12oz) per week Comment: weekends only. couple cans of beer. - Drug use: No Physical Exam Vitals and nursing note reviewed. Constitutional: General: He is not in acute distress. Appearance: Normal appearance. He is not ill-appearing. HENT: Right Ear: Tympanic membrane, ear canal and external ear normal. Left Ear: Tympanic membrane, ear canal and external ear normal. Nose: Nose normal. Mouth/Throat: Mouth: Mucous membranes are moist. Pharynx: Oropharynx is clear. No posterior oropharyngeal erythema. Cardiovascular: Rate and Rhythm: Normal rate and regular rhythm. Heart sounds: Normal heart sounds. Pulmonary: Effort: Pulmonary effort is normal. No respiratory distress. Breath sounds: Examination of the right-upper field reveals wheezing. Examination of the left-upper field reveals wheezing. Examination of the right-lower field reveals wheezing and rales. Examination of the left-lower field reveals wheezing and rales. Wheezing and rales present. Skin: General: Skin is warm and dry. Findings: No erythema or rash. Neurological: Mental Status: He is alert. {ASSESSMENT/PLAN: 1. Acute cough - ICD9: 786.2, ICD10: R05.1 (primary diagnosis) - XR CHEST 2V FRONTAL/LAT IMPRESSION: Lines, tubes, and devices: None. Lungs and pleura: Overlapping soft tissues degrade evaluation of the lower lungs. Chronic elevation of the RIGHT hemidiaphragm. Nonspecific prominence of the lung markings which could be secondary to vascular crowding, atelectasis or bronchitis/bronchiolit is. Increased density in the LEFT lateral upper hemithorax on the frontal radiograph is new compared to chest radiograph 03/14/2011 unclear if this is due to summation artifact versus a underlying pleural-parenchymal process and could be better evaluated with CT. Otherwise, no definite consolidation. Possible trace RIGHT pleural effusion versus pleural thickening. No pneumothorax identified. (more content not included)... Normal [facility] XR CHEST 2V FRONTAL/LATon XR CHEST 2V FRONTAL/LAT * * *Final Report* * * DATE OF EXAM: Jan 17 2025 9:01AM WOX [id number] - XR CHEST 2V FRONTAL/LAT / PROCEDURE REASON: Acute cough * * * * Physician Interpretation * * * * EXAMINATION: CHEST RADIOGRAPH (2 VIEW FRONTAL and LATERAL) TECHNOLOGIST PROVIDED HISTORY: Acute cough, hx of restrictive lung disease- paralyzed diaphragm. CLINICAL HISTORY: 64 years old Male with Acute cough. History RESTRICTIVE LUNG DISEASE-PARALYZED DIAPHRAGM. MQ: XC2_6 EXAM DATE/TIME: 01/17/2025 9:01 AM COMPARISON: Chest radiograph 03/14/2011, CT chest 05/23/2011 RESULT/ IMPRESSION: Lines, tubes, and devices: None. Lungs and pleura: Overlapping soft tissues degrade evaluation of the lower lungs. Chronic elevation of the RIGHT hemidiaphragm. Nonspecific prominence of the lung markings which could be secondary to vascular crowding, atelectasis or bronchitis/bronchiolit is. Increased density in the LEFT lateral upper hemithorax on the frontal radiograph is new compared to chest radiograph 03/14/2011 unclear if this is due to summation artifact versus a underlying pleural-parenchymal process and could be better evaluated with CT. Otherwise, no definite consolidation. Possible trace RIGHT pleural effusion versus pleural thickening. No pneumothorax identified. Cardiomediastinal silhouette: Borderline enlarged cardiopericardial silhouette. Bones and soft tissues: Remote healed LEFT rib fractures. Degenerative changes in the thoracic spine. Contract Technical Writer: PSCPrem Transcribe Date/Time: Jan 17 2025 9:15A Dictated by : ANNABEL BASILIO DO This examination was interpreted and the report reviewed and electronically signed by: ANNABEL BAISLIO DO on Jan 17 2025 9:22AM EST [id number] Normal [facility] XR Chest PA and Lateralon IMPRESSION: Lines, tubes, and devices: None. Lungs and pleura: Overlapping soft tissues degrade evaluation of the lower lungs. Chronic elevation of the RIGHT hemidiaphragm. Nonspecific prominence of the lung markings which could be secondary to vascular crowding, atelectasis or bronchitis/bronchiolit is. Increased density in the LEFT lateral upper hemithorax on the frontal radiograph is new compared to chest radiograph 03/14/2011 unclear if this is due to summation artifact versus a underlying pleural-parenchymal process and could be better evaluated with CT. Otherwise, no definite consolidation. Possible trace RIGHT pleural effusion versus pleural thickening. No pneumothorax identified. Cardiomediastinal silhouette: Borderline enlarged cardiopericardial silhouette. Bones and soft tissues: Remote healed LEFT rib fractures. Degenerative changes in the thoracic spine. Contract Technical Writer: PSCB Transcribe Date/Time: Jan 17 2025 9:15A Dictated by : ANNABEL BASILIO DO This examination was interpreted and the report reviewed and electronically signed by: ANNABEL BASILIO DO on Jan 17 2025 9:22AM [facility] DIVISION OF RADIOLOGY * * *Final Report* * * DATE OF EXAM: Jan 17 2025 9:01AM WOX [id number] - XR CHEST 2V FRONTAL/LAT / PROCEDURE REASON: Acute cough * * * * Physician Interpretation * * * * EXAMINATION: CHEST RADIOGRAPH (2 VIEW FRONTAL & LATERAL) TECHNOLOGIST PROVIDED HISTORY: Acute cough, hx of restrictive lung disease- paralyzed diaphragm. CLINICAL HISTORY: 64 years old Male with Acute cough. History RESTRICTIVE LUNG DISEASE-PARALYZED DIAPHRAGM. MQ: XC2_6 EXAM DATE/TIME: 01/17/2025 9:01 AM COMPARISON: Chest radiograph 03/14/2011, CT chest 05/23/2011 RESULT/ DIVISION OF RADIOLOGY Provider, [facility] - 01/17/2025 * * *Final Report* * * DATE OF EXAM: Jan 17 2025 9:01AM WOX [id number] - XR CHEST 2V FRONTAL/LAT / PROCEDURE REASON: Acute cough * * * * Physician Interpretation * * * * EXAMINATION: CHEST RADIOGRAPH (2 VIEW FRONTAL & LATERAL) TECHNOLOGIST PROVIDED HISTORY: Acute cough, hx of restrictive lung disease- paralyzed diaphragm. CLINICAL HISTORY: 64 years old Male with Acute cough. History RESTRICTIVE LUNG DISEASE-PARALYZED DIAPHRAGM. MQ: XC2_6 EXAM DATE/TIME: 01/17/2025 9:01 AM COMPARISON: Chest radiograph 03/14/2011, CT chest 05/23/2011 RESULT/ IMPRESSION IMPRESSION: Lines, tubes, and devices: None. Lungs and pleura: Overlapping soft tissues degrade evaluation of the lower lungs. Chronic elevation of the RIGHT hemidiaphragm. Nonspecific prominence of the lung markings which could be secondary to vascular crowding, atelectasis or bronchitis/bronchiolit is. Increased density in the LEFT lateral upper hemithorax on the frontal radiograph is new compared to chest radiograph 03/14/2011 unclear if this is due to summation artifact versus a underlying pleural-parenchymal process and could be better evaluated with CT. Otherwise, no definite consolidation. Possible trace RIGHT pleural effusion versus pleural thickening. No pneumothorax identified. Cardiomediastinal silhouette: Borderline enlarged cardiopericardial silhouette. Bones and soft tissues: Remote healed LEFT rib fractures. Degenerative changes in the thoracic spine. Contract Technical Writer: PSCB Transcribe Date/Time: Jan 17 2025 9:15A Dictated by : ANNABEL BASILIO DO This examination was interpreted and the report reviewed and electronically signed by: ANNABEL BASILIO DO on Jan 17 2025 9:22AM EST [facility] Radiology Study observation (narrative) [facility] XR Chest PA and LateralOrder ed By: [facility] Provider on 01-17-2025 [facility] [place] [facility] CNPN Telephone (FAMPWS) JUAN FRANCISCO SHAW ([id number]) 1960 M Date Time Provider Department 09/16/24 NO PCP FAMPWS During your visit today, we recorded the following information about you: Usha Rudolph RN 09/16/2024 10:30 AM Signed Patient calling with appointment related question. Information provided. Usha Rudolph RN Allergies As of Date: 09/16/2024 (No Known Allergies) Date Reviewed: 08/25/2023 Reviewed by: Annalise Dillon MA - Fully Assessed Prescriptions as of 09/16/2024 - fluticasone (FLONASE) 50 mcg/actuation nasal spray Use 2 Sprays in each nostril once daily. Rinse mouth after use. - loratadine (CLARITIN) 10 mg tablet Take 1 tablet by mouth once daily. - albuterol HFA (PROAIR HFA) 90 mcg/actuation inhaler Inhale 2 Puffs as instructed every 6 hours as needed. Problem List As Of Date 09/16/2024 Noted Resolved Pneumonia, organism unspecified [J18.9] 12/09/2006 06/27/2011 RESTRICTIVE LUNG DISEASE [J98.4] 01/23/2007 DYSPNEA [R06.09, R09.89] 01/23/2007 07/02/2016 PARALYZED DIAPHRAGM [J98.6] 02/17/2007 HYPERTENSION NOS [I10] 04/02/2007 04/02/2007 ELEV BL PRES W/O HYPERTN [R03.0] 04/02/2007 ANEMIA NOS [D64.9] 03/18/2008 Ventral hernia [K43.9] 05/23/2011 Obesity [E66.9] 03/02/2015 Encounter Status:Closed by USHA RUDOLPH on 09/16/24 [facility] Provider Note - ED v2on 06 Provider Note - ED v2 Provider Note - ED v2: Chart Review: HISTORY OF PRESENTING ILLNESS JUAN FRANCISCO is a 60 year old Male and was seen by me at 01-Mar-2021 10:43. The historian is the patient. Triage Information: Most recent Vital Sign Value Date PAST MEDICAL HISTORY ATTESTATION: I have reviewed and confirmed nurse's/medic's notes for patient's medications, allergies, and medical, surgical, family and social history ALLERGIES/INTOLERANCES : No Known Allergies HEALTH HISTORY: Medical History Name:COPD (chronic obstructive pulmonary disease) Code:J44.9 No other known health issues. Family history: no pertinent history. Social history: Former heavy smoker (quit in 2006). Currently employed. OUTPATIENT MEDICATIONS: Home Medications Review Status for Reconciliation: Complete Med Status: Patient Currently Takes Medications Drug Name: Zithromax Z-Van 250 mg oral tablet Instructions: 2 tab(s) by mouth at once on day 1, then 1 tablet once a day on days 2-5 Drug Name: albuterol 90 mcg/inh inhalation aerosol Instructions: 2 puff(s) inhaled every 4 hours, As Needed for wheezing or shortness of breath SIGNIFICANT EVENTS: No known past surgical history or significant events. Has not received any COVID-19 vaccines. RESULTS/VITAL SIGNS VITAL SIGNS: T PRBP SpO2O2(LPM) %FiO2 Method 01-Mar-2021 10:19:[id number] MEDICAL DECISION MAKING/ED COURSE MDM/ED COURSE: This note was generated with voice recognition software and may contain errors including spelling, grammar, syntax, and misrecognization of what was dictated CHIEF COMPLAINT sinus drainage/congestion, cough HISTORY OF PRESENT ILLNESS Patient presents today with complaints of fatigue, sinus drainage (white/yellow mucus) and mild pressure, non-productive cough that he feels is r/t PND, occasional wheezing/shortness of breath, intermittent L ear pain, and intermittent chills - sxs started yesterday evening. He denies any fever, but has had mild body aches, a headache yesterday, and scratchy throat. Denies R ear pain, abdominal pain, chest pain, urinary symptoms, vomiting, and diarrhea. Was a little nauseated yesterday but attributes it to his PND. Appetite is normal and is able to drink fluids without difficulty; denies any loss of sense of taste or smell. Reports feels like his symptoms are unchanged since onset. Has been taking Mucinex Multi-Symptom and ibuprofen with good relief; no other [id number] medications or home remedies for symptom management. Believes his symptoms may just be related to seasonal allergies. Reports his daughter and granddaughter (who live with him are currently sick with similar symptoms) - daughter is tested for COVID-19 once weekly for work, and she has been negative. No other known ill contacts. Has not received the COVID-19 vaccine. Reports history of COVID-19 in August, and pneumonia in 2006. Is a former smoker (quit in 2006 - states smoked all my life); history of COPD. REVIEW OF SYSTEMS 10 systems reviewed negative with exception of history of present illness listed above PHYSICAL EXAMINATION General: Mildly ill-appearing, well nourished male; alert and oriented; in no acute distress. Sitting comfortably on exam table. Non-dyspneic. Eyes: Pupils equal, round and reactive to light. No conjunctival erythema; no scleral icterus. HENT: No frontal or maxillary sinus tenderness, but audible nasal congestion. Airway patent, R TM with cloudy fluid, L TM with scarring and moderate erythema, with slight bulging. Ear canals clear bilaterally. Nasal mucosa injected and edematous. Oral mucosa moist. Posterior pharynx pink but without vesicles or oropharyngeal exudate aside from PND. Uvula is midline. Neck: Supple. No palpable lymphadenopathy. Respiratory: Respirations easy and unlabored, Breath sounds equal; good air movement. Lungs are clear to auscultation; no wheezes, rhonchi, or rales. Persistent, non-productive cough noted. Non-dyspneic with ambulation. Cardiovascular: Normal rate, Regular rhythm. Normal S1S2. No m/r/g. No pedal edema. Gastrointestinal: Soft, non-tender, non-distended; large soft, easily reducible umbilical hernia noted; no other palpable masses or organomegaly. Bowel sounds normoactive. Musculoskeletal: Grossly normal; appropriate for age. Integumentary: [place], warm, dry, and Intact. No rashes or skin discoloration appreciated. Good skin turgor Neurologic: Alert and oriented, no gross deficits. Cognition and Speech: Oriented, Speech clear and coherent. Psychiatric: Cooperative, Appropriate mood & affect. MEDICAL DECISION MAKING Course: Worsening; stable. Impression/Plan: I have reviewed the COVID-19 algorithm, and counseled pt on COVID-19 current recommendations - pt declined testing today despite recommendation and review of limitations/benefits - states daughter who lives with him has simila (more content not included)... Normal [facility] Vital Signs Date Time Vital Sign Value Performing Clinician Facility 01-17-2025 08:31-0400 Body mass index (BMI) [Ratio] 42.12 kg/m2 Marixa Clarke APRN.CNP Work Phone: [facility] 01-17-2025 08:31-0400 Body temperature 99.19 [degF] Marixa Clarke APRN.CNP Work Phone: [facility] 01-17-2025 08:31-0400 Body weight 123.8 kg Marixa Clarke APRN.CNP Work Phone: [facility] 01-17-2025 08:31-0400 Diastolic blood pressure 82 mm[Hg] Marixa Clarke APRN.CNP Work Phone: [facility] 01-17-2025 08:31-0400 Heart rate 83 /min Marixa Praisler-Wood MUCK OPERATOR.LIEUTENANT GOVERNOR Work Phone: [facility] 01-17-2025 08:31-0400 Respiratory rate 16 /min Marixa Praisler-Wood MUCK OPERATOR.LIEUTENANT GOVERNOR Work Phone: [facility] 01-17-2025 08:31-0400 SaO2% (BldA) [Mass fraction] 96 % Marixa Praisler-Wood MUCK OPERATOR.LIEUTENANT GOVERNOR Work Phone: [facility] 01-17-2025 08:31-0400 Systolic blood pressure 128 mm[Hg] Marixa Praisler-Wood MUCK OPERATOR.LIEUTENANT GOVERNOR Work Phone: [facility] 05-05-2023 15:06-0400 Body temperature 98.8 [degF] Chester Sheppard MD Work Phone: [facility] 05-05-2023 15:06-0400 Body weight 119.39 kg Chester Sheppard MD Work Phone: [facility] 05-05-2023 15:06-0400 Diastolic blood pressure 82 mm[Hg] Chester Sheppard MD Work Phone: [facility] 05-05-2023 15:06-0400 Heart rate 82 /min Chester Sheppard MD Work Phone: [facility] 05-05-2023 15:06-0400 Respiratory rate 18 /min Chester Sheppard MD Work Phone: [facility] 05-05-2023 15:06-0400 SaO2% (BldA) [Mass fraction] 96 % Chester Sheppard MD Work Phone: [facility] 05-05-2023 15:06-0400 Systolic blood pressure 140 mm[Hg] Chester Sheppard MD Work Phone: [facility] 09-10-2022 16:57-0500 Body temperature 99.39 [degF] Marixa Praisler-Wood MUCK OPERATOR.LIEUTENANT GOVERNOR Work Phone: [facility] 09-10-2022 16:57-0500 Body weight 118.84 kg Marixa Praisler-Wood MUCK OPERATOR.LIEUTENANT GOVERNOR Work Phone: [facility] 09-10-2022 16:57-0500 Diastolic blood pressure 82 mm[Hg] Marixa Praisler-Wood MUCK OPERATOR.LIEUTENANT GOVERNOR Work Phone: [facility] 09-10-2022 16:57-0500 Heart rate 94 /min Marixa Praisler-Wood MUCK OPERATOR.LIEUTENANT GOVERNOR Work Phone: [facility] 09-10-2022 16:57-0500 Respiratory rate 16 /min Marixa Praisler-Wood MUCK OPERATOR.LIEUTENANT GOVERNOR Work Phone: [facility] 09-10-2022 16:57-0500 SaO2% (BldA) [Mass fraction] 97 % Marixa Praisler-Wood MUCK OPERATOR.LIEUTENANT GOVERNOR Work Phone: [facility] 09-10-2022 16:57-0500 Systolic blood pressure 124 mm[Hg] Marixa Praisler-Wood MUCK OPERATOR.LIEUTENANT GOVERNOR Work Phone: [facility] 09-05-2022 10:11-0500 Body temperature 99.5 [degF] Ryne Pendlebury MUCK OPERATOR.LIEUTENANT GOVERNOR Work Phone: [facility] 09-05-2022 10:11-0500 Body weight 120.57 kg Ryne Pendlebury MUCK OPERATOR.LIEUTENANT GOVERNOR Work Phone: [facility] 09-05-2022 10:11-0500 Diastolic blood pressure 80 mm[Hg] Ryne Pendlebury MUCK OPERATOR.[employer]IEUTENANT GOVERNOR Work Phone: [facility] 09-05-2022 10:11-0500 Heart rate 89 /min Ryne Pendlebury MUCK OPERATOR.LIEUTENANT GOVERNOR Work Phone: [facility] 09-05-2022 10:11-0500 Respiratory rate 18 /min Ryne Pendlebury MUCK OPERATOR.LIEUTENANT GOVERNOR Work Phone: [facility] 09-05-2022 10:11-0500 SaO2% (BldA) [Mass fraction] 96 % Ryne Pendlebury MUCK OPERATOR.LIEUTENANT GOVERNOR Work Phone: [facility] 09-05-2022 10:11-0500 Systolic blood pressure 138 mm[Hg] Ryne Maggie MUCK OPERATOR.LIEUTENANT GOVERNOR Work Phone: [facility] 03-01-2021 12:19-0400 Body height 170.1 cm Cedric Tran Other Phone: [facility] 03-01-2021 12:19-0400 Body temperature 97.88 [degF] Cedric Tran Other Phone: [facility] 03-01-2021 12:19-0400 Diastolic blood pressure 90 mm[Hg] Cedric Tran Other Phone: [facility] 03-01-2021 12:19-0400 Heart rate 85 /min Cedric Tran Other Phone: [facility] 03-01-2021 12:19-0400 Respiratory rate 16 /min Cedric Tran Other Phone: [facility] 03-01-2021 12:19-0400 SaO2% (BldA) [Mass fraction] 97 % Cedric Tran Other Phone: [facility] 03-01-2021 12:19-0400 Systolic blood pressure 147 mm[Hg] Cedric Tran Other Phone: [facility] Encounters Encounter Date Encounter Type Care Provider Facility Start: 01-26-2025 ambulatory Patt Ruma Edith [place] Start: 01-26-2025 End: 01-28-2025 Evaluation and management of inpatient No Primary Care Physician Facility:[facility] Start: 01-23-2025 End: 01-23-2025 ambulatory [facility] Facility:[facility] Start: 01-17-2025 End: 01-17-2025 Subsequent hospital visit by physician Xr [facility] Work Phone: Radiology Comment on above: Acute cough [R05.1] Start: 01-17-2025 End: 01-17-2025 Patient encounter procedure Marixa Clarke APRN.LIEUTENANT GOVERNOR Work Phone: [facility] Comment on above: Acute cough (Primary Dx); Lower resp. tract infection; Wheezing Start: 01-17-2025 End: 01-17-2025 ambulatory MARIXA CLARKE Facility:[facility] Start: 09-16-2024 End: 09-16-2024 Telephone encounter No Pcp MUCK OPERATOR [facility] Start: 05-05-2023 End: 05-05-2023 Patient encounter procedure Chester Sheppard MD Work Phone: [facility] Comment on above: Diarrhea of presumed infectious origin (Primary Dx) Start: 09-10-2022 End: 09-10-2022 Patient encounter procedure Marixa Clarke MUCK OPERATOR.LIEUTENANT GOVERNOR Work Phone: [facility] Comment on above: Sinobronchitis (Prim dean Dx) Start: 09-05-2022 End: 09-05-2022 Office outpatient visit 25 minutes Ryne Serrano APRN.LIEUTENANT GOVERNOR Work Phone: [facility] Comment on above: Intertrigo (Primary Dx); Flu-like symptoms Start: 03-01-2021 End: 03-01-2021 Emergency department patient visit Carlota Deleon [facility] 01 Procedures Date Procedure Procedure Detail Performing Clinician Start: 01-17-2025 Radiologic exam ches t 2 views Marixa Clarke APRN.LIEUTENANT GOVERNOR Work Phone: Start: 03-14-2011 Lipid 1996 panel - S edwar or Plasma No Pcp MUCK OPERATOR Plan of Treatment Date Care Activity Detail Author Start: 05-22-2028 Urine microalbumin profile [facility] Start: 01-27-2025 End: 01-27-2025 Patient encounter procedure 01/27/2025 3:20 PM EDT Office Visit Family Practice [address] [facility] [address] [place], [place] [id number] Carlota Mohr APRN.LIEUTENANT GOVERNOR [address] [place] [address] [place], [place] [id number] [facility] Comment on above: [facility] Care Start: 05-30-2024 Covid-19 Vaccine ( season) Covid-19 Vaccine ( season) [facility] Start: 05-30-2024 Influenza vaccination Influenza Vacc ine (#1) [facility] Start: 05-30-2023 Influenza vaccination INFLUENZA (#1) [facility] Start: 2022 RSV Vaccine (1 - Ris k 60-74 years 1-dose series) RSV Vaccine (1 - Risk 60-74 years 1-dose series) [facility] Start: 09-29-2022 DEPRESSION ASSESSMENT DEPRESSION ASS ESSMENT [facility] Start: 05-30-2022 Influenza vaccination INFLUENZA (#1) [facility] Start: 09-29-2021 DEPRESSION ASSESSMENT DEPRESSION ASS ESSMENT [facility] Start: 2017 PROSTATE CANCER SCRE ENING DISCUSSION PROSTATE CANCER SCREENING DISCUSSION [facility] Start: 2017 Prostate specific an tigen measurement Prostate Cancer Screening Discussion [facility] Start: 03-14-2016 Lipid panel Lipid Screening [facility] Start: 03-14-2016 LIPID SCREEN LIPID SCREEN [facility] Start: 03-14-2014 DIABETES SCREEN DIABETES SCREEN [facility] Start: 03-14-2014 Diabetes Screening Diabetes Screenin g [facility] Start: 2012 Pneumococcal Vaccine : 50+ (1 of 1 - PCV) Pneumococcal Vaccine: 50+ (1 of 1 - PCV) [facility] Start: 2012 SHINGRIX VACCINE (1 of 2) SHINGRIX V ACCINE (1 of 2) [facility] Start: 12-31-2007 COLOGUARD (FIT-DNA) COLOGUARD (FIT-D NA) [facility] Start: 12-31-2007 Colonoscopy COLONOSCOPY [facility] Start: 12-31-2007 COLORECTAL CANCER SCREENING COLORECTAL CANCER SCREENING [facility] Start: 12-31-[address] COLONOGRAPHY [facility] Start: 12-31-2007 FECAL OCCULT BLOOD FECAL OCCULT BLOO D [facility] Start: 12-31-2007 Screening for malign ant neoplasm of colon [facility] Start: 12-31-2007 SIGMOIDOSCOPY SIGMOIDOSCOPY [facility] Start: 1980 Anxiety Screening Anxiety Screening [facility] Start: 1980 Depression Screening Depression Scre ening [facility] Start: 1980 HEPATITIS C SCREENING HEPATITIS C [facility] Start: 1980 Hepatitis C screening Hepatitis C [facility] Start: 1980 HIV SCREENING HIV SCREENING [facility] Start: 1980 HIV screening HIV Screening [facility] Start: 07-01-1963 COVID-19 VACCINE (#1) COVID-19 VACCI NE (#1) [facility] Immunizations Immunization Date Immunization Notes Care Provider Arsen perez 05-22-2018 tetanus toxoid, reduced diphtheria toxoid, and acellular pertussis vaccine, adsorbed Ryne Serrano MUCK OPERATOR.[facility] Work Phone: [facility] 06-20-2016 influenza, seasonal, injectable Ryne Serrano MUCK OPERATOR.[facility] Work Phone: [facility] 06-20-2016 influenza virus vaccine, unspecified formulation No Pcp MUCK OPERATOR [facility] 07-20-2009 influenza virus vaccine, unspecified formulation Ryne Serrano MUCK OPERATOR.[facility] Work Phone: [facility] Work Phone: 09-29-2007 tetanus and diphther ia toxoids, adsorbed, preservative free, for adult use (2 Lf of tetanus toxoid and 2 Lf of diphtheria toxoid) Ryne Serrano MUCK OPERATOR.[facility] Work Phone: [facility] Work Phone: 11-10-2006 influenza virus vaccine, unspecified formulation Ryne Serrano MUCK OPERATOR.[facility] Work Phone: [facility] Work Phone: Payers Date Payer Category Payer Self-pay 2022 [facility] BLUE CARD POS OOS [id number] 2022 Unknown [id number] 2021 Unknown Unknown [id number] Unknown [id number] Unknown [id number] Unknown [id number] Social History Date Type Detail Facility [facility] Tobacco smoking consumption unknown [facility] Start: 09-05-2022 Tobacco smoking stat us NHIS Ex-smoker [facility] Start: 11-08-1976 End: 11-08-2006 History of tobacco use Current smoker [facility] Start: 11-08-1976 End: 11-08-2006 History of tobacco use Cigarette Smoker [facility] Start: 09-06-2020 End: 09-05-2022 Cigarettes smoked current (pack per day) - Reported 1.5 [facility] Start: 09-05-2022 Tobacco use and exposure User of smokeless tobacco [facility] History of tobacco use Chews Tobacco [facility] Start: 09-05-2022 End: 01-17-2025 Alcohol intake Current drinker of alcohol (finding) [facility] Start: 09-05-2022 Tobacco Comment Continues off cigs. Continues to dip snuff. [facility] Start: 10-15-2012 Alcohol Comment weekends only. couple cans of beer. [facility] Start: 1960 Sex Assigned At Not on file [facility] Start: 09-06-2020 End: 05-05-2023 Tobacco use panel [facility] Adult Depression Screening Assessment 0 [facility] Functional Status Date Assessment Result Facility 05-04-2015 Are you deaf, or do you have serious difficulty hearing No 05/04/2015 2:23 PM EDT Estelita Lara Ma No [facility] 05-04-2015 Are you blind, or do you have serious difficulty seeing, even when wearing glasses No 05/04/2015 2:23 PM EDT Jane Estelita Muro No [facility] 05-04-2015 Do you have serious difficulty walking or climbing stairs No 05/04/2015 2:23 PM EDT Estelita Lara Ma No [facility] 05-04-2015 Do you have difficul ty dressing or bathing No 05/04/2015 2:23 PM EDT Estelita Lara Ma No [facility] 05-04-2015 Because of a physica l, mental, or emotional condition, do you have difficulty doing errands alone such as visiting a physician's office or shopping No 05/04/2015 2:23 PM EDT Estelita Lara Ma No [facility] Mental Status Date Assessment Result Facility 05-04-2015 Because of a physica l, mental, or emotional condition, do you have serious difficulty concentrating, remembering, or making decisions No 05/04/2015 2:23 PM EDT Jane Estelita Muro No [facility] Clinical Notes 04-02-2007 to 01-28-2025 Patient InstructionsStoney Clancy RT(R) - 01/17/2025 9:00 AM EDTPraisler- Marixa Barber APRN.LIEUTENANT GOVERNOR - 01/17/2025 8:45 AM EDTTelephone Encounter - Usha Rudolph RN - 09/16/2024 10:29 AM EST Note Date & Type Note Facility 01-28-2025 Note [facility] Medical Records Department [address] [place] [id number] Discharge Summary 01/28/25 1627 MR#: [id number] Acct: [id number] Name: JUAN FRANCISCO SHAW Rep #: [id number] : 1960 64 From: Brien Dotson MD PCP: Care Physician,No Primary Status:DIS IN Location: [facility] [id number] Providers Date of Admission: 01/26/25 Primary Care Physician: No Primary Care Phys Reason For Visit: HYPOXIA, PNEUMONIA Diagnosis Discharge Diagnosis (1) Pneumonia: Status: Acute Code(s): J18.9 - Pneumonia, unspecified organism Medications at Discharge Home Medications albuterol sulfate 90 mcg/actuation aerosol inhaler 2 puff inhalation Q4H PRN wheezing 30 days #1 g 01/28/25 amlodipine 10 mg tablet 10 mg PO DAILY 30 days #30 tabs 01/28/25 azithromycin 500 mg tablet 500 mg PO DAILY 3 days #3 tabs 01/28/25 cefdinir 300 mg capsule 300 mg PO BID 6 days #12 caps 01/28/25 Hospital Course Operations None Procedures None Summary of Care Provided Minutes Spent on Discharge: 36 Hospital Course: Per HPI: JUAN FRANCISCO SHAW, is a 64 M with a PMH as outlined who was admitted via the ED on 01/26/2025 with a complaint of shortness of breath. Symptoms have been going on since he had seen his PCP and was prescribed Augmentin and doxycycline. He took these medications but his shortness of breath and cough persisted. Cough was productive. His cough had worsening shortness of breath and not improved. He denied any fever or chills, chest pain, nausea vomiting or any other symptoms. Review of systems otherwise negative. He decided to come into the ED because symptoms were not improving. Vitals in [facility] ED were BP of 170/90, TN of 80, RR Of 20 and temp of 98.2F. He was saturating at 97% on 2L of oxygen by nasal canula. CBC showed Hb of 14, wbc of 14, platelets of 288. D dimer was 0.78. Chemistry showed sodium of 140, potassium of 3.4, bicarb of 29.2 and Cr of 0.81. Pro BNP was <36 and initial troponin was not elevated. Lactic acid was 1.4. Chest x-ray showed findings in the right lung base consistent with pneumonia. CTA of the chest was negative for PE and showed findings compatible with an infectious versus inflammatory process given scattered foci of lower lobe endobronchial debris and mucous plugging with consideration for aspiration. He is being admitted to be managed for hypoxia due to community acquired pneumonia with failed outpatient therapy. Hospital Course: 1. Acute hypoxic respiratory insufficiency due to community-acquired pneumonia with failed outpatient therapy???62-year-old male presented to the hospital with pneumonia he was prescribed Augmentin and doxycycline on outpatient side but is continued to have shortness of breath and was requiring some oxygen initially on admission. His oxygen requirement resolved prior to discharge. His urine strep antigen was positive and his sputum sample is showing possible strep pneumonia organism growing. Will complete a few more days of azithromycin and cefdinir on discharge and he also requested for a refill on his albuterol inhaler. I discussed with him the possibly discharge today he expressed understanding the risks and benefits of going home and he would like to go home today. I recommend he follow-up with his PCP in the next 3 to 5 days. 2. Essential hypertension, asthma are chronic medical conditions which complicate his care. His home medications were continued where appropriate Physical Exam Narrative General: Alert, Oriented x3, Cooperative, No apparent distress HEENT: Atraumatic, PERRLA, EOMI, Normocephalic Oral: Moist Mucosa Neck: Supple, No JVD Lungs: Diminished, Normal air movement, No rhonchi, No wheeze, No rales Cardiovascular: Regular rate, Regular Rhythm, Normal S1, Normal S2, No murmurs Abdomen: Soft, Non Tender, Non-Distended, No Hepato-splenomegaly Extremities: No edema, Capillary Refill Less than 3 Seconds Skin: No rashes, No breakdown Musculoskeletal: No Tenderness to Palpation of Joints or Extremities Neurological: No focal neurological deficits, Motor Exam 5/5 strength throughout, Sensory exam intact to light touch and pain Psych/Mental Status: Normal Affect, Appropriate Weight / BMI Weight Weight: 268 lb 0.008 oz Body Mass Index (BMI) 38.4 ABG / Lab / Microbiology Data 01/28/25 05:42 01/28/25 05:42 Laboratory: Laboratory Results - last 24 hr 01/28/25 05:42: WBC 10.6, RBC 4.42 L, Hgb 13.5, Hct 39.8 L, MCV 90.0, MCH 30.5, MCHC 33.9, RDW Std Deviation 45.0 H, RDW Coeff of [place] 13.7, Plt Count , MPV 9.4, Immature Gran % (Auto) 0.700, Neut % (Auto) 72.6 H, Lymph % (Auto) 17.3 L, [place] % (Auto) 6.6, Eos % (Auto) 2.3, Baso % (Auto) 0.5, Absolute Neuts (auto) 7.7, Absolute Lymphs (auto) 1.83, Nucleated RBC % 0, Differential Comment SCANNED, Platelet Estimate ADEQUATE, Sodium 137, Potassium 3.9, Ch (more content not included)... [facility] 01-23-2025 Note HNO ID: [id number] Author: SEAN MCKNIGHT APRN.LIEUTENANT GOVERNOR Service: ? Author Type: Nurse Practitioner Type: Progress Notes Filed: 01/23/2025 15:58 Note Text: [facility] Subjective HPI HPI Juan Francisco Shaw is a 64 year old male who presents today for CC of cough, wheeze, sob. This started few weeks. Finished zpack, augmentin, prednisone. Hx of hospitalization. Reports s/s improving, but still coughing nonstop. .Patient presents with: Cough: Persisting since JULITA 01/17/25 PAST MEDICAL HISTORY Diagnosis Date Obesity PMH - PAST MEDICAL HISTORY OF 11/05 pneumonia Tobacco use disorder PAST SURGICAL HISTORY Procedure Laterality Date PAST SURGICAL HISTORY OF 2006 chest tube placement/right REPAIR BICEPS TENDON RUPTURE left TMPP MASTOIDECTOMY W/OSSICULAR CHAIN RECNSTJ 1983 Dr. Mobley ALLERGIES Patient has no known allergies. MEDICATIONS predniSONE (DELTASONE) 10 mg tabletTake 4 tabs daily for 3 days, then 2 tabs daily for 3 days, then 1 tab daily for 3 days with food.Disp: 21 tabletRfl: 0 albuterol HFA (PROVENTIL HFA, VENTOLIN HFA) 90 mcg/actuation inhalerInhale 2 puffs as instructed every 4 hours as needed for wheezing/shortness of breath.Disp: 1 eachRfl: 0 fluticasone (FLONASE) 50 mcg/actuation nasal sprayUse 2 Sprays in each nostril once daily. Rinse mouth after use.Disp: 1 BottleRfl: 0 (Patient not taking: Reported on 09/05/2022) loratadine (CLARITIN) 10 mg tabletTake 1 tablet by mouth once daily.Disp: 30 tabletRfl: 11 (Patient not taking: Reported on 09/05/2022) FAMILY HISTORY Problem Relation Age of Onset Stroke Mother Emphysema Father Diabetes Sister Diabetes Mother Social History Tobacco Use Smoking status: Former Current packs/day: 0.00 Average packs/day: 1.5 packs/day for 30.0 years (45.0 ttl pk-yrs) Types: Cigarettes Start date: 11/08/1976 Quit date: 11/08/2006 Years since quittin.2 Smokeless tobacco: Current Types: Chew Tobacco comments: Continues off cigs. Continues to dip snuff. Substance Use Topics Alcohol use: Yes Alcohol/week: 6.0 standard drinks of alcohol Types: 6 Cans of Beer (12oz) per week Comment: weekends only. couple cans of beer. Drug use: No Review of Systems Constitutional: Negative for chills, fatigue and fever. HENT: Negative for ear discharge, ear pain, rhinorrhea, sinus pressure, sinus pain and sore throat. Eyes: Negative for discharge and redness. Respiratory: Positive for cough, shortness of breath and wheezing. Cardiovascular: Negative for chest pain. Skin: Negative for rash. Objective BP 145/86 Pulse 92 Temp 36.9 ?C (98.4 ?F) (Oral) Resp 20 Wt 122.8 kg (270 lb 11.6 oz) SpO2 93% BMI 41.78 kg/m? Physical Exam Constitutional: General: He is not in acute distress. Appearance: He is not toxic-appearing or diaphoretic. HENT: Head: Normocephalic and atraumatic. Cardiovascular: Rate and Rhythm: Normal rate and regular rhythm. Heart sounds: Normal heart sounds, S1 normal and S2 normal. Pulmonary: Effort: Pulmonary effort is normal. Breath sounds: Examination of the right-lower field reveals decreased breath sounds. Examination of the left-lower field reveals decreased breath sounds. Decreased breath sounds and wheezing present. No rhonchi or rales. Comments: Wheezing improved after nebulizer treatment Neurological: Mental Status: He is alert and oriented to person, place, and time. {ASSESSMENT/PLAN: 1. Wheeze - ICD9: 786.07, ICD10: R06.2 Continue regular use of albuterol for next day. Finish atb and steroids Keep f/u appointment this week. -If you experience chest pain/shortness of breath go to ER -no xray at time of exam. -did not want to return for another xray. - ALBUTEROL SULFATE 2.5 MG/3 ML (0.083 %) SOLUTION FOR NEBULIZATION -improvement noted after nebulizer treatment. Sean Mcknight APRN.LIEUTENANT GOVERNOR Disposition The patient was discharged. Procedures [facility] 01-17-2025 Instructions Marixa Clarke APRN.GARY - 01/17/2025 9:36 AM EDT ASSESSMENT/PLAN: 1. Acute cough - ICD9: 786.2, ICD10: R05.1 (primary diagnosis) - XR CHEST 2V FRONTAL/LAT IMPRESSION: Lines, tubes, and devices: None. Lungs and pleura: Overlapping soft tissues degrade evaluation of the lower lungs. Chronic elevation of the RIGHT hemidiaphragm. Nonspecific prominence of the lung markings which could be secondary to vascular crowding, atelectasis or bronchitis/bronchiolitis. Increased density in the LEFT lateral upper hemithorax on the frontal radiograph is new compared to chest radiograph 03/14/2011 unclear if this is due to summation artifact versus a underlying pleural-parenchymal process and could be better evaluated with CT. Otherwise, no definite consolidation. Possible trace RIGHT pleural effusion versus pleural thickening. No pneumothorax identified. Cardiomediastinal silhouette: Borderline enlarged cardiopericardial silhouette. Bones and soft tissues: Remote healed LEFT rib fractures. Degenerative changes in the thoracic spine. Contract Technical Writer: FRANKY Transcribe Date/Time: Jan 17 2025 9:15A Dictated by : ANNABEL BASILIO DO 2. Lower resp. tract infection - ICD9: 519.8, ICD10: J22 - AZITHROMYCIN 250 MG TABLET - AMOXICILLIN 875 MG-POTASSIUM CLAVULANATE 125 MG TABLET 3. Wheezing - ICD9: 786.07, ICD10: R06.2 - PREDNISONE 10 MG TABLET - ALBUTEROL SULFATE HFA 90 MCG/ACTUATION AEROSOL INHALER - Follow-up with your PCP in 3-5 days if symptoms have not improved or sooner if symptoms worsen - Discussed red flags and need for immediate medical evaluation if any occur. - Discussed supportive care treatment with fluids, rest and analgesia. - Discussed expected course of illness Marixa Clarke APRN.LIEUTENANT GOVERNOR documented in this encounter [facility] 01-17-2025 History of Presen t illness Narrative Radiology Service Progress Note PATIENT NAME: Juan Francisco Shaw DATE OF SERVICE: January 17, 2025 TIME: 8:51 AM PATIENT IDENTITY VERIFICATION COMPLETED USING TWO (2) IDENTIFIERS: Name and Date of confirmed by patient verbally. FALL SCREENING: Has the patient had 2 falls in the last year or 1 fall with injury or currently using an Ambulatory Assistive Device (Walker, Cane, Wheelchair, Crutches, etc.)? No PATIENT GENDER DATA: Assigned male at PATIENT RELEVANT IMPLANT DATA REVIEWED: Yes PATIENT PRESENTS WITH AN IMPLANTABLE OR ATTACHED PAINTER SIGN MAINTENANCE: No RADIOLOGY DEPARTMENT: General X-ray: Exam(s) Completed: Chest X-Ray PERIPHERAL IV DATA: Not applicable SIGNED BY: RT Kristi(Donny) January 17, 2025 8:51 AM documented in this encounter [facility] 01-17-2025 Note HNO ID: [id number] Author: STONEY CLANCY RT(R) Service: ? Author Type: Certified Technician Specialist Type: Progress Notes Filed: 01/17/2025 09:00 Note Text: Radiology Service Progress Note PATIENT NAME: Juan Francisco Shaw DATE OF SERVICE: January 17, 2025 TIME: 8:51 AM PATIENT IDENTITY VERIFICATION COMPLETED USING TWO (2) IDENTIFIERS: Name and Date of confirmed by patient verbally. FALL SCREENING: Has the patient had 2 falls in the last year or 1 fall with injury or currently using an Ambulatory Assistive Device (Walker, Cane, Wheelchair, Crutches, etc.)? No PATIENT GENDER DATA: Assigned male at PATIENT RELEVANT IMPLANT DATA REVIEWED: Yes PATIENT PRESENTS WITH AN IMPLANTABLE OR ATTACHED PAINTER SIGN MAINTENANCE: No RADIOLOGY DEPARTMENT: General X-ray: Exam(s) Completed: Chest X-Ray PERIPHERAL IV DATA: Not applicable SIGNED BY: RT Kristi(Donny) January 17, 2025 8:51 AM [facility] 01-17-2025 Note HNO ID: [id number] Author: MARIXA CLARKE APRN.[employer]UTENANT GOVERNOR Service: ? Author Type: Nurse Practitioner Type: Progress Notes Filed: 01/17/2025 09:44 Note Text: [facility] Subjective Juan Francisco Shaw is a 64 year old male. Patient presents with: Cough: Cough, chest congestion and SOB x 2 days Cough Associated symptoms include rhinorrhea and shortness of breath. Pertinent negatives include no chest pain, no chills, no ear pain and no sore throat. Juan Francisco Shaw is a 64 year old male who presents with a cough, chest congestion and shortness of breath for the past 2 days. He has a history of restrictive lung disease w/paralyzed diaphragm. He has not had a fever. Cough is productive of green sputum. He has had a runny nose. He took OTC severe cold and flu medication at home. Review of Systems Constitutional: Negative for chills and fever. HENT: Positive for congestion and rhinorrhea. Negative for ear pain and sore throat. Respiratory: Positive for cough and shortness of breath. Cardiovascular: Negative for chest pain. Gastrointestinal: Negative. Musculoskeletal: Negative. Objective BP 128/82 Pulse 83 Temp 37.3 ?C (99.2 ?F) (Tympanic) Resp 16 Wt 123.8 kg (272 lb 14.9 oz) SpO2 96% BMI 42.12 kg/m? PAST MEDICAL HISTORY Diagnosis Date - Obesity - PMH - PAST MEDICAL HISTORY OF 11/05 pneumonia - Tobacco use disorder PAST SURGICAL HISTORY Procedure Laterality Date - PAST SURGICAL HISTORY OF 2006 chest tube placement/right - REPAIR BICEPS TENDON RUPTURE left - TMPP MASTOIDECTOMY W/OSSICULAR CHAIN RECNSTJ 1983 Dr. Mobley ALLERGIES Patient has no known allergies. MEDICATIONS - fluticasone (FLONASE) 50 mcg/actuation nasal spray Use 2 Sprays in each nostril once daily. Rinse mouth after use. (Patient not taking: Reported on 09/05/2022) - loratadine (CLARITIN) 10 mg tablet Take 1 tablet by mouth once daily. (Patient not taking: Reported on 09/05/2022) - albuterol HFA (PROAIR HFA) 90 mcg/actuation inhaler Inhale 2 Puffs as instructed every 6 hours as needed. (Patient not taking: Reported on 01/22/2019 ) FAMILY HISTORY Problem Relation Age of Onset - Stroke Mother - Emphysema Father - Diabetes Sister - Diabetes Mother Social History Tobacco Use - Smoking status: Former Current packs/day: 0.00 Average packs/day: 1.5 packs/day for 30.0 years (45.0 ttl pk-yrs) Types: Cigarettes Start date: 11/08/1976 Quit date: 11/08/2006 Years since quittin.2 - Smokeless tobacco: Current Types: Chew - Tobacco comments: Continues off cigs. Continues to dip snuff. Substance Use Topics - Alcohol use: Yes Alcohol/week: 6.0 standard drinks of alcohol Types: 6 Cans of Beer (12oz) per week Comment: weekends only. couple cans of beer. - Drug use: No Physical Exam Vitals and nursing note reviewed. Constitutional: General: He is not in acute distress. Appearance: Normal appearance. He is not ill-appearing. HENT: Right Ear: Tympanic membrane, ear canal and external ear normal. Left Ear: Tympanic membrane, ear canal and external ear normal. Nose: Nose normal. Mouth/Throat: Mouth: Mucous membranes are moist. Pharynx: Oropharynx is clear. No posterior oropharyngeal erythema. Cardiovascular: Rate and Rhythm: Normal rate and regular rhythm. Heart sounds: Normal heart sounds. Pulmonary: Effort: Pulmonary effort is normal. No respiratory distress. Breath sounds: Examination of the right-upper field reveals wheezing. Examination of the left-upper field reveals wheezing. Examination of the right-lower field reveals wheezing and rales. Examination of the left-lower field reveals wheezing and rales. Wheezing and rales present. Skin: General: Skin is warm and dry. Findings: No erythema or rash. Neurological: Mental Status: He is alert. {ASSESSMENT/PLAN: 1. Acute cough - ICD9: 786.2, ICD10: R05.1 (primary diagnosis) - XR CHEST 2V FRONTAL/LAT IMPRESSION: Lines, tubes, and devices: None. Lungs and pleura: Overlapping soft tissues degrade evaluation of the lower lungs. Chronic elevation of the RIGHT hemidiaphragm. Nonspecific prominence of the lung markings which could be secondary to vascular crowding, atelectasis or bronchitis/bronchiolitis. Increased density in the LEFT lateral upper hemithorax on the frontal radiograph is new compared to chest radiograph 03/14/2011 unclear if this is due to summation artifact versus a underlying pleural-parenchymal process and could be better evaluated with CT. Otherwise, no definite consolidation. Possible trace RIGHT pleural effusion versus pleural thickening. No pneumothorax identified. Cardiomediastinal silhouette: Borderline enlarged cardiopericardial silhouette. Bones and soft tissues: Remote healed LEFT rib fractures. Degenerative changes in the thoracic spine. Contract Technical Writer: FRANKY Transcribe Date/Time: Jan 17 2025 9:15A Dictated by : ANNABEL BASILIO DO 2. Lo (more content not included)... [facility] 01-17-2025 History of Presen t illness Narrative [facility] Subjective Juan Francisco Shaw is a 64 year old male. Patient presents with: Cough: Cough, chest congestion and SOB x 2 days Cough Associated symptoms include rhinorrhea and shortness of breath. Pertinent negatives include no chest pain, no chills, no ear pain and no sore throat. Juan Francisco Shaw is a 64 year old male who presents with a cough, chest congestion and shortness of breath for the past 2 days. He has a history of restrictive lung disease w/paralyzed diaphragm. He has not had a fever. Cough is productive of green sputum. He has had a runny nose. He took OTC severe cold and flu medication at home. Review of Systems Constitutional: Negative for chills and fever. HENT: Positive for congestion and rhinorrhea. Negative for ear pain and sore throat. Respiratory: Positive for cough and shortness of breath. Cardiovascular: Negative for chest pain. Gastrointestinal: Negative. Musculoskeletal: Negative. Objective BP 128/82 Pulse 83 Temp 37.3 C (99.2 F) (Tympanic) Resp 16 Wt 123.8 kg (272 lb 14.9 oz) SpO2 96% BMI 42.12 kg/m PAST MEDICAL HISTORY Diagnosis Date Obesity PMH - PAST MEDICAL HISTORY OF 11/05 pneumonia Tobacco use disorder PAST SURGICAL HISTORY Procedure Laterality Date PAST SURGICAL HISTORY OF 2006 chest tube placement/right REPAIR BICEPS TENDON RUPTURE left TMPP MASTOIDECTOMY W/OSSICULAR CHAIN RECNSTJ 1983 Dr. Mobley ALLERGIES Patient has no known allergies. MEDICATIONS fluticasone (FLONASE) 50 mcg/actuation nasal spray Use 2 Sprays in each nostril once daily. Rinse mouth after use. (Patient not taking: Reported on 09/05/2022) loratadine (CLARITIN) 10 mg tablet Take 1 tablet by mouth once daily. (Patient not taking: Reported on 09/05/2022) albuterol HFA (PROAIR HFA) 90 mcg/actuation inhaler Inhale 2 Puffs as instructed every 6 hours as needed. (Patient not taking: Reported on 01/22/2019 ) FAMILY HISTORY Problem Relation Age of Onset Stroke Mother Emphysema Father Diabetes Sister Diabetes Mother Social History Tobacco Use Smoking status: Former Current packs/day: 0.00 Average packs/day: 1.5 packs/day for 30.0 years (45.0 ttl pk-yrs) Types: Cigarettes Start date: 11/08/1976 Quit date: 11/08/2006 Years since quittin.2 Smokeless tobacco: Current Types: Chew Tobacco comments: Continues off cigs. Continues to dip snuff. Substance Use Topics Alcohol use: Yes Alcohol/week: 6.0 standard drinks of alcohol Types: 6 Cans of Beer (12oz) per week Comment: weekends only. couple cans of beer. Drug use: No Physical Exam Vitals and nursing note reviewed. Constitutional: General: He is not in acute distress. Appearance: Normal appearance. He is not ill-appearing. HENT: Right Ear: Tympanic membrane, ear canal and external ear normal. Left Ear: Tympanic membrane, ear canal and external ear normal. Nose: Nose normal. Mouth/Throat: Mouth: Mucous membranes are moist. Pharynx: Oropharynx is clear. No posterior oropharyngeal erythema. Cardiovascular: Rate and Rhythm: Normal rate and regular rhythm. Heart sounds: Normal heart sounds. Pulmonary: Effort: Pulmonary effort is normal. No respiratory distress. Breath sounds: Examination of the right-upper field reveals wheezing. Examination of the left-upper field reveals wheezing. Examination of the right-lower field reveals wheezing and rales. Examination of the left-lower field reveals wheezing and rales. Wheezing and rales present. Skin: General: Skin is warm and dry. Findings: No erythema or rash. Neurological: Mental Status: He is alert. {ASSESSMENT/PLAN: 1. Acute cough - ICD9: 786.2, ICD10: R05.1 (primary diagnosis) - XR CHEST 2V FRONTAL/LAT IMPRESSION: Lines, tubes, and devices: None. Lungs and pleura: Overlapping soft tissues degrade evaluation of the lower lungs. Chronic elevation of the RIGHT hemidiaphragm. Nonspecific prominence of the lung markings which could be secondary to vascular crowding, atelectasis or bronchitis/bronchiolitis. Increased density in the LEFT lateral upper hemithorax on the frontal radiograph is new compared to chest radiograph 03/14/2011 unclear if this is due to summation artifact versus a underlying pleural-parenchymal process and could be better evaluated with CT. Otherwise, no definite consolidation. Possible trace RIGHT pleural effusion versus pleural thickening. No pneumothorax identified. Cardiomediastinal silhouette: Borderline enlarged cardiopericardial silhouette. Bones and soft tissues: Remote healed LEFT rib fractures. Degenerative changes in the thoracic spine. Contract Technical Writer: FRANKY Transcribe Date/Time: Jan 17 2025 9:15A Dictated by : ANNABEL BASILIO DO 2. Lower resp. tract infection - ICD9: 519.8, ICD10: J22 - AZITHROMYCIN 250 MG TABLET - AMOXICILLIN 875 MG-POTASSIUM CLAVULANATE 125 MG TABLET 3. Wheezing - ICD9: 786.07, ICD10: R06.2 - PREDNISONE 10 MG TABLET - ALBUTEROL SULFATE HFA 90 MCG/ACTUATION AEROSOL INHALER - Follow-up with your PCP in 3-5 days if symptoms have not improved or sooner if symptoms worsen - Discussed red flags and need for immediate medical evaluation if any occur. - Discussed supportive care treatment with fluids, rest and analgesia. - Discussed expected course of illness Marixa Clarke APRN.[employer] Management I performed an independent interpretation of the following:imaging Imaging: My interpretation is see plan Disposition The patient was discharged. Procedures documented in this encounter [facility] 09-16-2024 Telephone encounter Note Patient calling with appointment related question. Information provided. Usha Rudolph RN [facility] 09-16-2024 Miscellaneous Notes Patient calling with appointment related question. Information provided. Usha Rudolph RN documented in this encounter [facility] 05-05-2023 History of Presen t illness Narrative Patient presents with: Diarrhea: Bodyaches x this AM HPI: Feeling sick since this morning. Co-workers have had diarrhea. Positive symptoms: Body Aches, Diarrhea, Malaise, Fatigue, Negative symptoms: Cough, Sore throat, Nasal Congestion, Rhinorrhea, Nausea, Vomiting, blood in stool, abdominal pain, recent travel, recent antibiotic, MEDICATIONS: Current Outpatient Medications Medication Sig fluticasone (FLONASE) 50 mcg/actuation nasal spray Use 2 Sprays in each nostril once daily. Rinse mouth after use. (Patient not taking: Reported on 09/05/2022) loratadine (CLARITIN) 10 mg tablet Take 1 tablet by mouth once daily. (Patient not taking: Reported on 09/05/2022) albuterol HFA (PROAIR HFA) 90 mcg/actuation inhaler Inhale 2 Puffs as instructed every 6 hours as needed. (Patient not taking: Reported on 01/22/2019 ) No current facility-administered medications for this visit. ALLERGIES: ALLERGIES No Known Allergies VITALS: BP 140/82 Pulse 82 Temp 37.1 C (98.8 F) Resp 18 Wt 119.4 kg (263 lb 3.2 oz) SpO2 96% BMI 40.61 kg/m PHYSICAL EXAM: GEN: alert, pleasant, mildly ill appearing HEENT: PERRL, EOMI, conjunctiva clear Throat: moist mucous membranes, Neck: supple, HEART: regular rate and rhythm, no murmurs LUNGS: clear to auscultation, no wheezes or crackles, no increased WOB ABD: Soft, non-distended, non-tender, no masses ASSESSMENT/PLAN: 1. Diarrhea of presumed infectious origin - ICD9: 009.3, ICD10: R19.7 Hydration with fluids encouraged. Solid intake as tolerated. Hand hygiene to reduce transmission. Follow up in the ER with signs of dehydration, increasing abdominal pain, high fever, or blood in vomit or stool. Chester Sheppard MD documented in this encounter [facility] 09-10-2022 History of Presen t illness Narrative Subjective Nasal Congestion Associated symptoms include congestion, coughing, headaches and shortness of breath. Pertinent negatives include no chills, ear pain or sore throat. Juan Francisco Shaw is a 61 year old male who presents with cold and flu symptoms for the past 2 weeks. He was seen here on 09/05/22 and given mucinex and tessalon perles. He continues to have productive cough, nasal drainage, and sinus pressure and headache. He feels short of breath if he coughs a lot. He denies chest pain or back pain or fever. Review of Systems Constitutional: Negative for chills and fever. HENT: Positive for congestion and sinus pain. Negative for ear pain and sore throat. Respiratory: Positive for cough, sputum production and shortness of breath. Cardiovascular: Negative for chest pain. Musculoskeletal: Negative for myalgias. Neurological: Positive for headaches. BP 124/82 Pulse 94 Temp 37.4 C (99.4 F) Resp 16 Wt 118.8 kg (262 lb) SpO2 97% BMI 40.43 kg/m PAST MEDICAL HISTORY Diagnosis Date Obesity PMH - PAST MEDICAL HISTORY OF 11/05 pneumonia Tobacco use disorder PAST SURGICAL HISTORY Procedure Laterality Date PAST SURGICAL HISTORY OF 2006 chest tube placement/right REPAIR BICEPS TENDON RUPTURE left TMPP MASTOIDECTOMY W/OSSICULAR CHAIN RECNSTJ 1983 Dr. Mobley ALLERGIES Patient has no known allergies. MEDICATIONS amoxicillin-clavulanic acid (AUGMENTIN) 875-125 mg per tablet Take 1 tablet by mouth twice daily for 7 days. benzonatate (TESSALON PERLES) 100 mg capsule Take 1 capsule by mouth three times daily as needed for cough. predniSONE (DELTASONE) 20 mg tablet Take 2 tablets by mouth once daily for 4 days. Take daily with food. nystatin (MYCOSTATIN) cream Apply to affected area twice daily for 14 days. fluticasone (FLONASE) 50 mcg/actuation nasal spray Use 2 Sprays in each nostril once daily. Rinse mouth after use. (Patient not taking: Reported on 09/05/2022) loratadine (CLARITIN) 10 mg tablet Take 1 tablet by mouth once daily. (Patient not taking: Reported on 09/05/2022) albuterol HFA (PROAIR HFA) 90 mcg/actuation inhaler Inhale 2 Puffs as instructed every 6 hours as needed. (Patient not taking: Reported on 01/22/2019 ) FAMILY HISTORY Problem Relation Age of Onset Stroke Mother Emphysema Father Diabetes Sister Diabetes Mother Social History Tobacco Use Smoking status: Former Packs/day: 1.50 Years: 30.00 Pack years: 45.00 Types: Cigarettes Quit date: 11/08/2006 Years since quittin.8 Smokeless tobacco: Current Types: Chew Tobacco comments: Continues off cigs. Continues to dip snuff. Substance Use Topics Alcohol use: Yes Alcohol/week: 15.0 standard drinks Types: 6 Cans of Beer (12oz) per week Comment: weekends only. couple cans of beer. Drug use: No Objective Physical Exam Vitals and nursing note reviewed. HENT: Right Ear: Tympanic membrane, ear canal and external ear normal. Left Ear: Tympanic membrane, ear canal and external ear normal. Nose: Nasal tenderness, mucosal edema, congestion and rhinorrhea present. Mouth/Throat: Mouth: Mucous membranes are moist. Pharynx: Oropharynx is clear. Uvula midline. No oropharyngeal exudate or posterior oropharyngeal erythema. Cardiovascular: Rate and Rhythm: Normal rate and regular rhythm. Heart sounds: Normal heart sounds. Pulmonary: Effort: Pulmonary effort is normal. No respiratory distress. Breath sounds: Examination of the right-upper field reveals wheezing. Examination of the left-upper field reveals wheezing. Examination of the right-lower field reveals decreased breath sounds and wheezing. Examination of the left-lower field reveals decreased breath sounds and wheezing. Decreased breath sounds and wheezing present. No rales. Musculoskeletal: Cervical back: Neck supple. Lymphadenopathy: Cervical: No cervical adenopathy. Skin: General: Skin is warm and dry. Findings: No erythema or rash. Neurological: Mental Status: He is alert. ASSESSMENT/PLAN: 1. Sinobronchitis - ICD9: 473.9, 490, ICD10: J32.9, J40 - Will begin treatment with as per antibiotic as written, see orders - Supportive care with plenty of fluids, rest, and analgesia prn. - offered chest xray, patient declined. - AMOXICILLIN 875 MG-POTASSIUM CLAVULANATE 125 MG TABLET - BENZONATATE 100 MG CAPSULE - PREDNISONE 20 MG TABLET - Follow-up with your PCP in 3-5 days if symptoms have not improved or sooner if symptoms worsen - Discussed red flags and need for immediate medical evaluation if any occur. - Discussed supportive care treatment with fluids, rest and analgesia. - Discussed expected course of illness Marixa Clarke APRN.[employer] documented in this encounter [facility] 09-10-2022 Instructions Marixa Clarke APRN.[employer] - 09/10/2022 5:11 PM EST Images from the original note were not included. ASSESSMENT/PLAN: 1. Sinobronchitis - ICD9: 473.9, 490, ICD10: J32.9, J40 - Will begin treatment with as per antibiotic as written, see orders - Supportive care with plenty of fluids, rest, and analgesia prn. - offered chest xray, patient declined. - AMOXICILLIN 875 MG-POTASSIUM CLAVULANATE 125 MG TABLET - BENZONATATE 100 MG CAPSULE - PREDNISONE 20 MG TABLET - Follow-up with your PCP in 3-5 days if symptoms have not improved or sooner if symptoms worsen - Discussed red flags and need for immediate medical evaluation if any occur. - Discussed supportive care treatment with fluids, rest and analgesia. - Discussed expected course of illness Marixa Clarke APRN.[employer] Adult Sinusitis Patient Education What is Sinusitis? Sinusitis [[id number]] is inflammation of the sinuses or swelling of the lining of the sinus cavity or nose. During an infection the sinuses become blocked with fluid causing swelling of the lining of the sinuses. Symptoms: (viral and bacterial infections) Stuffy nose Runny nose Postnasal drip Fever Toothache Headache Tiredness Cough Sore throat Face and head pressure and or pain Common causes: 98% of sinus infections are viral caused by viruses. Risk Factors of Sinusitis Include: Allergies, air pollution, indoor humidity and outdoor temperature changes, andstructural changes in the nose may contribute to sinus pain, pressure and congestion. When to get help? Temperature greater than 100.4 F Symptoms lasting more than 10 days or worsening symptoms greater than 7-10 days. If you do not improve or worsen after a course of antibiotics, you should be re-examined. Diagnosis and Treatment: Your healthcare provider will ask a number of questions about your symptoms and how long they have occurred. If symptoms of sinusitis persist greater than 10 days, it is possible you have a bacterial sinus infection and an antibiotic is prescribed. If it is viral, antibiotics will not help. You may be instructed to take [id number] medications for symptoms. including fever reducers acetaminophen or ibuprofen, nasal saline spray, cough and cold preparations and decongestants as prescribed by the physician, nurse practitioner or physician assistant golf coach. Self-Care and Prevention: Rest Fluids for hydration Good hand washing Humidifier Avoid smoking and exposure to second hand smoke Avoid sick contacts documented in this encounter [facility] 09-05-2022 Instructions Ryne Serrano APRN.GARY - 09/05/2022 10:34 AM EST RESPIRATORY INFECTION GENERAL INFORMATION: An upper respiratory tract infection, or cold, is a viral infection of the airway passages. It can be caused by any one of almost 200 different viruses. Common symptoms include a runny or stuffy nose, sneezing, watery eyes, sore throat, cough, and slight fever. Colds are contagious, especially during the first 3 or 4 days and cannot be cured by antibiotics. They are spread by coughs, sneezes, and direct contact, especially [id number]. A respiratory tract infection usually clears up in a few days, but some people may be sick for a week or two. INSTRUCTIONS: 1. Be careful not to blow your nose too hard because this may cause a nosebleed. 2. Use a cool-mist humidifier (vaporizer) to increase air moisture. This will make it easier for you to breathe. Do not use hot steam. 3. Rest as much as possible and get plenty of sleep. 4. Wash your hands often, especially after you blow your nose. Cover your mouth and nose with a tissue when you sneeze or cough. 5. Drink plenty of clear fluids (8 glasses a day) such as water, fruit juice, tea, clear soups, and carbonated beverages. CONTACT YOUR DOCTOR IF : 1. Your fever lasts more than 3 days. 2. You have a sore throat that gets worse or you see white or yellow spots in your throat. 3. Your cough gets worse or lasts more than 10 days. 4. You develop a rash anywhere on your skin. 5. You have an earache or a headache. 6. You have thick greenish or yellowish discharge from your nose. RETURN IMMEDIATELY IF: 1. You cough up thick yellow, green, adams, or bloody sputum. 2. You have difficulty breathing, pain in your chest, or your skin or nails look adams or blue. 3. You have shaking chills or a temperature over 102 F (39 C). documented in this encounter [facility] 09-05-2022 History of Presen t illness Narrative Images from the original note were not included. Subjective HPI Patient presents to urgent care with chief complaint of fever and cough. Duration of symptoms 4 days Associated symptoms with today's chief complaint are on and off headache, muscle aches, fatigue, nonproductive cough, and fever. Patient stated symptoms started abruptly. Patient states they have used [id number] medication with some success. Patient states they were in contact with individuals who were diagnosed with influenza. Patient denies any pain at this time. Patient denies any visual changes, visual disturbance, shortness of breath, exercise intolerance, pleuritic pain, productive cough, abdominal pain, nausea, vomiting, chest pain, or change in bowel or bladder habits. Patient did have a pruritic rash on his buttocks. Has had intertrigo in the past this feels similar. No OTC medications. No pain. Past medical history prescription medication use allergies reviewed. .Patient presents with: Cough: Chest congestion, Epps. Fever x4 days, reddened area scaly buttocks x2 wks. PAST MEDICAL HISTORY Diagnosis Date Obesity PMH - PAST MEDICAL HISTORY OF 11/05 pneumonia Tobacco use disorder PAST SURGICAL HISTORY Procedure Laterality Date PAST SURGICAL HISTORY OF 2006 chest tube placement/right REPAIR BICEPS TENDON RUPTURE left TMPP MASTOIDECTOMY W/OSSICULAR CHAIN RECNSTJ 1983 Dr. Mobley ALLERGIES Patient has no known allergies. MEDICATIONS nystatin (MYCOSTATIN) cream Apply to affected area twice daily for 14 days. benzonatate (TESSALON PERLES) 100 mg capsule Take 1 capsule by mouth three times daily as needed for cough. fluticasone (FLONASE) 50 mcg/actuation nasal spray Use 2 Sprays in each nostril once daily. Rinse mouth after use. (Patient not taking: Reported on 09/05/2022) loratadine (CLARITIN) 10 mg tablet Take 1 tablet by mouth once daily. (Patient not taking: Reported on 09/05/2022) albuterol HFA (PROAIR HFA) 90 mcg/actuation inhaler Inhale 2 Puffs as instructed every 6 hours as needed. (Patient not taking: Reported on 01/22/2019 ) FAMILY HISTORY Problem Relation Age of Onset Stroke Mother Emphysema Father Diabetes Sister Diabetes Mother Social History Tobacco Use Smoking status: Former Packs/day: 1.50 Years: 30.00 Pack years: 45.00 Types: Cigarettes Quit date: 11/08/2006 Years since quittin.8 Smokeless tobacco: Current Types: Chew Tobacco comments: Continues off cigs. Continues to dip snuff. Substance Use Topics Alcohol use: Yes Alcohol/week: 15.0 standard drinks Types: 6 Cans of Beer (12oz) per week Comment: weekends only. couple cans of beer. Drug use: No BP 138/80 Pulse 89 Temp 37.5 C (99.5 F) Resp 18 Wt 120.6 kg (265 lb 12.8 oz) SpO2 96% BMI 41.02 kg/m Review of Systems Constitutional: Positive for chills, fever and malaise/fatigue. HENT: Positive for congestion. Negative for ear discharge, ear pain, sinus pain and sore throat. Eyes: Negative for blurred vision, pain, discharge and redness. Respiratory: Positive for cough. Negative for hemoptysis, sputum production, shortness of breath, wheezing and stridor. Cardiovascular: Negative for chest pain. Gastrointestinal: Negative for abdominal pain, diarrhea, nausea and vomiting. Musculoskeletal: Positive for myalgias. Skin: Positive for itching and rash. Neurological: Positive for headaches. Negative for dizziness. Objective Physical Exam Constitutional: General: He is not in acute distress. Appearance: He is not diaphoretic. HENT: Head: Normocephalic. Mouth/Throat: Mouth: Mucous membranes are moist. Pharynx: Oropharynx is clear. No oropharyngeal exudate or posterior oropharyngeal erythema. Eyes: Conjunctiva/sclera: Conjunctivae normal. Pupils: Pupils are equal, round, and reactive to light. Cardiovascular: Rate and Rhythm: Normal rate and regular rhythm. Heart sounds: Normal heart sounds. Pulmonary: Effort: Pulmonary effort is normal. No tachypnea, accessory muscle usage or respiratory distress. Breath sounds: Normal breath sounds. No stridor. No wheezing, rhonchi or rales. Abdominal: Palpations: Abdomen is soft. Tenderness: There is no abdominal tenderness. There is no guarding. Musculoskeletal: Cervical back: Normal range of motion and neck supple. No rigidity or tenderness. Lymphadenopathy: Cervical: No cervical adenopathy. Skin: General: Skin is warm and dry. Comments: Erythematous scaly rash with satellite lesions noted. No drainage. Neurological: Mental Status: He is alert and oriented to person, place, and time. ASSESSMENT/PLAN: 1. Intertrigo - ICD9: 695.89, ICD10: L30.4 (primary diagnosis) 2. Flu-like symptoms - ICD9: 780.99, ICD10: R68.89 Declined influenza testing. Daughter has influenza who lives in house. Suspicious of viral illness. Patient diagnosed with intertrigo. Will use nystatin. Follow-up with PCP 3 to 5 days reevaluation. Patient was educated on supportive therapies. Patient will follow up with primary care provider as needed. Patient was instructed to immediately proceed to emergency room for any new, worsening, or symptoms lasting longer than anticipated. The patient's clinical presentation is otherwise unremarkable at this time. Based on exam and clinical finding, the patient is stable for discharge. Plan of care was discussed with patient. Patient verbalizes understanding and agrees to plan of care. This note was generated using [employer] software. It may contain errors in wording, punctuation, or spelling. Ryne Serrano APRN.[employer] documented in this encounter [facility] 04-02-2007 History of Past i llness Narrative Problem Noted Date Resolved Date Unspecified essential hypertension 04/02/2007 04/02/2007 DYSPNEA 01/23/2007 07/02/2016 Pneumonia, organism unspecified(486) 12/09/2006 06/27/2011 documented as of this encounter (statuses as of 09/05/2022) [facility] History of Past illness Narrative* Problem Noted Date Resolved Date Unspecified essential hypertension 04/02/2007 04/02/2007 DYSPNEA 01/23/2007 07/02/2016 Pneumonia, organism unspecified(486) 12/09/2006 06/27/2011 documented as of this encounter (statuses as of 09/10/2022) [facility] History of Past illness Narrative* Problem Noted Date Diagnosed Date Resolved Date Unspecified essential hypertension 04/02/2007 04/02/2007 DYSPNEA 01/23/2007 07/02/2016 Pneumonia, organism unspecified(486) 12/09/2006 06/27/2011 documented as of this encounter (statuses as of 05/06/2023) [facility] note* Diagnosis Intertrigo- Primary Other specified erythematous condition Flu-like symptoms Other general symptoms documented in this encounter [facility] note* Diagnosis Sinobronchitis- Primary Unspecified sinusitis (chronic) documented in this encounter [facility] note* Diagnosis Diarrhea of presumed infectious origin- Primary documented in this encounter [facility] note* Diagnosis Acute cough- Primary Lower resp. tract infection Other diseases of respiratory system, not elsewhere classified Wheezing Acute cough documented in this encounter [facility] note* Diagnosis Acute cough documented in this encounter [facility] Summary Purpose Family History No Family History Records FoundNo Family History Records FoundNo Family History Records Found Advance Directives No Advanced Directives Records FoundNo Advanced Directives Records FoundNo Advanced Directives Records Found Additional Source Comments <item> Privacy Markings (unrecogniz ed section and content) Section Author: Indigo Mccallum PROHIBITION ON REDISCLOSURE OF CONFIDENTIAL INFORMATION This notice accompanies a disclosure of information concerning a client made to you with the consent of such client. (unrecognized sect ion and content) No Status Records FoundNo Status Records FoundNo Status Records Found INFORMATION SOURCE (unrecogn ized section and content) DATE CREATED AUTHOR 03/02/2021 [facility]erged with [facility] DATE CREATED AUTHOR AUTHOR'S ORGANIZ ATION 02/02/2025 [facility] DATE CREATED AUTHOR AUTHOR'S ORGANIZ ATION 02/05/2025 [facility] Source Comments (unrecognize d section and content) In the event this informatio n is protected by the Federal Confidentiality of Alcohol and Drug Abuse Patient Records regulations: The Federal rules restrict any use of the information to criminally investigate or prosecute any alcohol or drug abuse patient.[facility] the event this information is protected by the Federal Confidentiality of Alcohol and Drug Abuse Patient Records regulations: The Federal rules restrict any use of the information to criminally investigate or prosecute any alcohol or drug abuse patient.[facility] the event this information is protected by the Federal Confidentiality of Alcohol and Drug Abuse Patient Records regulations: The Federal rules restrict any use of the information to criminally investigate or prosecute any alcohol or drug abuse patient.[facility] the event this information is protected by the Federal Confidentiality of Alcohol and Drug Abuse Patient Records regulations: The Federal rules restrict any use of the information to criminally investigate or prosecute any alcohol or drug abuse patient.[facility] the event this information is protected by the Federal Confidentiality of Alcohol and Drug Abuse Patient Records regulations: The Federal rules restrict any use of the information to criminally investigate or prosecute any alcohol or drug abuse patient.[facility] the event this information is protected by the Federal Confidentiality of Alcohol and Drug Abuse Patient Records regulations: The Federal rules restrict any use of the information to criminally investigate or prosecute any alcohol or drug abuse patient.[facility] Reason for Visit (unrecogniz ed section and content) Reason Comments Cough Chest congestion, Epps . Fever x4 days, reddened area scaly buttocks x2 wks. Reason Comments Nasal Congestion cough, chills x 2 we eks Reason Comments Diarrhea Bodyaches x this AM Reason Comments Cough Cough, chest congest ion and SOB x 2 days Care Teams (unrecognized sec tion and content) [employer]/Stewardess Relationship Specialty Start Date End Date Cedric Tran MD [address], [place] [phone] PCP - General Family Medicine 01/15/18 [employer] Steward/Stewardess Relationship Specialty Start Date End Date Cedric Tran MD [address], [place] [phone] PCP - General Family Medicine 01/15/18 [employer] Steward/Stewardess Relationship Specialty Start Date End Date Cedric Tran MD [address] [place] [id number] PCP - General Family Medicine 01/15/18 FOR RECORDS PERTAINING TO PATIENTS WHO ARE OR HAVE BEEN ENROLLED IN A CHEMICAL DEPENDENCY/SUBSTANCEABUSE PROGRAM, SOME INFORMATION MAY BE OMITTED. This clinical summary was aggregated from multiple sources. Caution should be exercised in using it in the provision of clinical care. This summary normalizes information from multiple sources, and as a consequence, information in this document may materially change the coding, format and clinical context of patient data. In addition, data may be omitted in some cases. CLINICAL DECISIONS SHOULD BE BASED ON THE PRIMARY CLINICAL RECORDS. [employer] [facility]. provides no warranty or guarantee of the accuracy or completeness of information in this document.
[2025-05-22 23:05] LABS: Hematocrit 43.8 % (40-54); Hemoglobin 15.4 g/dL (13.0-16.5); Immature Granulocytes Count 0.050 X10^3/uL (0.0-0.0); Mean Corp Hgb Conc 35.2 g/dL (32-36); Mean Corpuscular Volume 88.3 fL (80-94); Mean Platelet Vol. 9.4 fl (6.2-12.0); NRBC Flagged by Analyzer 0 % (0-5); Platelet Count 219 K/mm3 (150-450); RBC Distribution Width CV 13.9 % (11.6-14.6); RBC Distribution Width SD 44.9 fl (35.1-43.9); Red Blood Count 4.96 M/mm3 (4.6-6.2); White Blood Count 11.3 K/mm3 (4.4-11.0)
[2025-05-22 23:33] LABS: Anion Gap 12 (5-15); BUN 14 mg/dL (4-19); BUN/Creat Ratio 16.2 RATIO (10-20); Calcium,Total 8.3 mg/dL (7.6-11.0); Carbon Dioxide 25.2 mmol/L (21.0-32.0); Chloride 103 mmol/L (98-108); Estimated Creatinine Clearance 120.15 ml/min (50-250); Glucose 147 mg/dL (70-99); Magnesium 2.2 mg/dL (1.5-2.2); Potassium 3.9 mmol/L (3.3-5.1); Pro- Brain NATRIURETIC PEPTIDE 129 pg/mL (<=900); Procalcitonin 0.18 ng/mL (<=0.10)
[2025-05-23] VITALS: BP 167/94; PULSE 99; RESP 20; TEMP 37.2; O2SAT 94
[2025-05-23 00:08] VITALS: O2SAT 92
--- NOTE | 2025-05-23 00:17 | EDS_ITS ---
HPI History of Present Illness Chief Complaint: Shortness of Breath Informant: patient Narrative Narrative: Patient is a 64-year-old male who states that he does not have any significant past medical history but also states he does not typically follow with a phys ician. He states that he smoked a pack and a half a day for approximately 40 years but quit in 2006. He states he does not require supplemental oxygen at baseline. He does report that in 2012 he had to have fluid drained off his lungs. He also reports that roughly 4 to 5 months ago he was admitted to the hospital secondary to pneumonia. He states in the last 10 to 12 hours he has had subjective fevers and chills with mild cough and increased shortness of breath. He denies any known sick contacts. He states that he is concerned that his symptoms are from a potential pneumonia or fluid buildup and that he may need admitted to the hospital once again and therefore comes to the ER for evaluation [facility] Home Medications ?Medication ?Instructions ?Recorded ?Last Taken ?Type doxycycline monohydrate 100 mg 100 mg PO BID 7 days #1 4 CAPSULES 05/23/25 Unknown Rx capsule fluticasone furoate 100 1 inh inhalation DAILY #60 e a 05/23/25 Unknown Rx mcg-vilanterol 25 mcg/dose inhalation powder (Breo Ellipta) prednisone 20 mg tablet 20 mg PO DAILY 5 days #5 tab s 05/23/25 Unknown Rx Allergy/AdvReac Type Severity Reaction Status Date / Time No Known Allergies Allergy Verified 05/22/25 22:03 Family History (Updated 01/26/25 @ 12:14 by Alethea Holliday) Father CHF (congestive heart failure) COPD (chronic obstructive pulmonary disease) Mother Parkinson disease CVA (cerebral vascular accident) Sister COPD (chronic obstructive pulmonary disease) Surgical History S/P middle ear reconstruction Social History Smoking Status: Current every day smoker tobacco type: smokeless tobacco ROS ROS ED Constitutional Constitutional ED: Reports chills, fever(s) and subjective Eyes Eyes: Denies blurry vision or change in vision ENT ENT ED: Reports rhinorrhea; Denies sore throat Cardiovascular Cardiovascular: Denies chest pain Respiratory/Chest Respiratory/Chest: Reports cough and dyspnea Gastrointestinal Gastrointestinal: Denies abdominal pain, diarrhea, nausea or vomiting Musculoskeletal Musculoskeletal: Denies myalgias Integumentary Denies rash Neurologic Neurologic: Denies headache(s) Hematologic/Lymphatic Hematologic/Lymphatic: Denies easy bleeding or easy bruising Allergic/Immunologic Allergic/Immunologic ED: Denies mouth swelling or tongue swelling EXAM Physical Exam Const Vital Signs: 05/22/25 22:00 05/22/25 22:01 05/22/25 22:20 Temperature 99.4 F H Temperature Source Oral Pulse Rate 109 H Respiratory Rate 26 H Respiratory Effort Respiratory Depth Respiratory Pattern Blood Pressure 197/105 H Blood Pressure Mean 135 Pulse Ox 92 94 94 Oxygen Delivery Method Room Air Room Air Nasal Cannula Oxygen Flow Rate (L/min) 2 05/22/25 22:20 05/22/25 23:00 05/22/25 23:05 Temperature 99.4 F H Temperature Source Oral Pulse Rate 97 97 Respiratory Rate 22 H 22 H Respiratory Effort Short of Breath Labored Respiratory Depth Shallow Respiratory Pattern Tachypnea Blood Pressure 175/101 H 175/101 H Blood Pressure Mean 125 125 Pulse Ox 97 93 Oxygen Delivery Method Nasal Cannula Room Air Room Air Oxygen Flow Rate (L/min) 2 05/22/25 23:30 05/22/25 23:38 05/23/25 00:00 Temperature 98.9 F Temperature Source Oral Pulse Rate 94 101 H 99 Respiratory Rate 20 H 18 20 H Respiratory Effort Respiratory Depth Respiratory Pattern Normal Blood Pressure 142/87 H 167/94 H Blood Pressure Mean 105 118 Pulse Ox 92 94 Oxygen Delivery Method Room Air Oxygen Flow Rate (L/min) 05/23/25 00:43 Temperature 98 F Temperature Source Pulse Rate 97 Respiratory Rate 18 Respiratory Effort Respiratory Depth Respiratory Pattern Blood Pressure 161/80 H Blood Pressure Mean 107 Pulse Ox 94 Oxygen Delivery Method Oxygen Flow Rate (L/min) Positive well nourished, well developed and obese General Appearance ED: well developed; Negative for pallor Nutritional Appearance: obese HEENT Reports moist mucous membranes HEENT Narrative: Normocephalic atraumatic There is cobblestoning noted in the posterior pharynx consistent with sinus drainage but no secondary findings to suggest infection No tongue or lip swelling no oral lesions no airway edema or compromise Eyes PERRL and EOMs intact bilaterally General Eye ED: Negative for scleral icterus Neck supple and no JVD Chest Wall palpation of chest normal Resp Resp Narrative: Breath sounds are diminished throughout. There is faint wheeze in the bilateral bases. Patient does have crackles noted bilateral bases and into the right mid/upper lobe region. There is mild tachypnea noted with otherwise no nasal flaring or retractions or dyspnea with speech. Cardio regular rhythm Rate: tachycardic and other Other Details: Slightly tachycardic rate with regular rhythm Radial and carotid pulses are equal and symmetric GI normal to inspection, nondistended, normoactive bowel sounds, non-tender, non- distended and no masses Auscultation: normoactive bowel sounds Palpation: soft Back/Spine no CVA tenderness Extremity Extremity Narrative: +1 pitting edema to the bilateral lower extremities that is equal and symmetric Negative Homans' sign bilaterally Neuro oriented x3, CN's II-XII intact bilaterally and no sensory deficits noted Sensorium / Orientation: alert Motor Exam: strength 5/5 throughout Psych mental status grossly normal Skin no rashes or lesions noted and no wounds General Skin Exam: Negative for jaundice or pallor MDM MDM MDM Narrative Medical decision making narrative: Patient to the ER low-grade fever hypertension and mild tachycardia. He states that he was told he needs to be on blood pressure medication but does not take it. With his report of subjective fevers and chills as well as previous history of pneumonia I do have high concern for pneumonia versus congestive heart failure exacerbation/pulmonary edema. Patient also could have viral illness such as COVID influenza or RSV leading to COPD exacerbation. Patient denies any documented history of COPD but with smoking half a pack a day for 40 years he has roughly a 60-year smoking history and therefore there is high likelihood he does have underlying COPD. Secondary to this a chest x-ray with viral swab and basic blood work were obtained. White count is only slightly elevated at 11.3 and otherwise he has no significant elevation of the procalcitonin going against a infectious process. His proBNP is normal at 129 going against CHF exace rbation. Blood work reveals no signs of acute blood loss anemia or acute kidney injury. Chest x-ray reveals no obvious pneumonia or signs of volume overload. After receiving a breathing treatment he did report feeling better and his mild increased work of breathing resolved. He was ambulated and his pulse ox remained 92%. Therefore this time as x-ray does not reveal signs of infection or volume overload and this correlates with his blood work and he is not hypoxic either at rest or with ambulation I do not feel the need for admission. Patient has a physical exam and history consistent with viral illness leading to COPD exacerbation. But as he is not in distress or hypoxic I will simply start him on steroids inhalers and an antibiotic for home. He does agree to return to the hospital for repeat evaluation if symptoms are worsening despite his outpatient therapy. But at this time he is not hypoxic he is not in respiratory distress he is not requiring submental oxygen with ambulation and his x-ray and proBNP do not indicate volume overload. Therefore he is safe for discharge with symptomatic care History & Record Review Discussion w/independent historian: Patient Lab Data Attestation: I reviewed the patient's lab results. Labs: Laboratory Results - last 24 hr 05/22/25 22:28 WBC 11.3 H RBC 4.96 Hgb 15.4 Hct 43.8 MCV 88.3 MCH 31.0 MCHC 35.2 RDW Std Deviation 44.9 H RDW Coeff of Mana 13.9 Plt Count 219 MPV 9.4 Immature Gran % (Auto) 0.400 Neut % (Auto) 87.7 H Lymph % (Auto) 5.8 L Sequoyah % (Auto) 5.0 Eos % (Auto) 0.8 Baso % (Auto) 0.3 Absolute Neuts (auto) 9.9 H Absolute Lymphs (auto) 0.65 L Nucleated RBC % 0 Sodium 140 Potassium 3.9 Chloride 103 Carbon Dioxide 25.2 Anion Gap 12 BUN 14 Creatinine 0.84 Estim Creat Clear Calc 120.15 Est GFR (MDRD) Non-Af 99 BUN/Creatinine Ratio 16.2 Glucose 147 H Calcium 8.3 Magnesium 2.2 NT pro BNP II 129 Procalcitonin 0.18 H Radiography Diagnostic Testing: Clinical Impression(s) from Imaging Studies Chest X-Ray 05/22/25 22:52 IMPRESSION: 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 No acute airspace disease or other acute infiltrate noted [facility] Chest x-ray as interpreted by the emergency medicine physician reveals chronic elevation of the right hemidiaphragm without acute infiltrate pneumothorax or pleural effusion Discharge Plan Triage Chief Complaint: Shortness of Breath ED Provider: Jose R Gomez Dx/Rx/DC Orders Clinical Impression: Acute exacerbation of chronic obstructive pulmonary disease, Hypertension, Peripheral edema Instructions: COPD: Wheezing and Chest Tightness Prescriptions: New prednisone 20 mg tablet 20 mg PO DAILY 5 Days Qty: 5 0RF doxycycline monohydrate 100 mg capsule 100 mg PO BID 7 Days Qty: 14 0RF fluticasone furoate-vilanterol [Breo Ellipta] 100-25 mcg/dose blister with device 1 inh inhalation DAILY Qty: 60 0RF Stand Alone Forms: ED Work / School Excuse Primary Care Provider: Care Physician,No Primary Referrals: Francis Diaz MD [Med Staff - Active Staff] - Care Physician,No Primary [Primary Care Provider] - Activity Restrictions/Additional Instructions: Your workup today did not reveal any fluid within your lung tissue or sign of pneumonia. Your symptoms are most consistent with a COPD exacerbation from a upper respiratory virus. Use your albuterol inhaler as needed for shortness of breath every 4-6 hours take the steroid to help reduce inflammation and use the doxycycline to prevent any secondary infection. If you are having any worsening of symptoms or further concerns please return to the ER for repeat evaluation Print Language: Macanese Disposition Disposition: Home, Self Care Discharge Date/Time: 05/23/25 00:44
[2025-05-23 00:43] VITALS: BP 161/80; PULSE 97; RESP 18; TEMP 36.6; O2SAT 94
[2025-05-23] MEDS: Albuterol Sulfate 8 gm Inhaler (60 puffs) 2 PUFF INHALATION (00:43)
== END 2025-05-23 00:44 | disposition home or self-care (01) ==
PROVIDERS: Emergency Provider Emergency Medicine; Visit Provider Emergency Medicine
DX: J44.1 Chronic obstructive pulmonary disease with (acute) exacerbation (principal); I10 Essential (primary) hypertension; R60.9 Edema, unspecified; R06.02 Shortness of breath; F17.220 Nicotine dependence, chewing tobacco, uncomplicated
CPT/HCPCS: 71046; 80048; 83735; 83880; 84145; 85025; 87631; 93005; 94640; 99284; A4216